=== PATIENT | female | born 1970 | race Caucasian/White ===

== ENCOUNTER → 2017-07-08 10:04 | Outpatient (REF) | payer MEDICAID, SELFPAY ==
[2017-07-08 13:46] LABS: Amphetamine/Metha Screen,Urine Positive ng/mL (<1000); Barbiturates Screen,Urine Negative ng/mL (<200); Benzodiazepines Screen,Urine Negative ng/mL (200); Cannabinoid Screen,Urine Negative ng/mL (<50); Cocaine Screen,Urine Negative ng/g (<300); Methadone Screen,Urine Negative ng/mL (<300); Opiate Screen,Urine Negative ng/mL (<300); Phencyclidine Screen,Urine Negative ng/mL (<25)
== END ==
LOC: LAB 10:04
PROVIDERS: Visit Provider Emergency Medicine
DX: Z79.899 Other long term (current) drug therapy (principal)
CPT/HCPCS: 80305

== ENCOUNTER → 2017-11-01 13:23 | Outpatient (REF) | payer MEDICAID, SELFPAY ==
[2017-11-01 21:02] LABS: Amphetamine/Metha Screen,Urine Positive ng/mL (<1000); Barbiturates Screen,Urine Negative ng/mL (<200); Benzodiazepines Screen,Urine Negative ng/mL (<200); Cannabinoid Screen,Urine Negative ng/mL (<50); Cocaine Screen,Urine Negative ng/mL (<300); Methadone Screen,Urine Negative ng/mL (<300); Opiate Screen,Urine Negative ng/mL (<300); Phencyclidine Screen,Urine Negative ng/mL (<25)
== END ==
LOC: LAB 13:23
PROVIDERS: Visit Provider Emergency Medicine
DX: Z79.899 Other long term (current) drug therapy (principal)
CPT/HCPCS: 80305

== ENCOUNTER → 2017-12-31 13:49 | Outpatient (REF) | payer MEDICAID, SELFPAY ==
[2017-12-31 20:42] LABS: Amphetamine/Metha Screen,Urine Positive ng/mL (<1000); Barbiturates Screen,Urine Negative ng/mL (<200); Benzodiazepines Screen,Urine Negative ng/mL (<200); Cannabinoid Screen,Urine Negative ng/mL (<50); Cocaine Screen,Urine Negative ng/mL (<300); Methadone Screen,Urine Negative ng/mL (<300); Opiate Screen,Urine Negative ng/mL (<300); Phencyclidine Screen,Urine Negative ng/mL (<25)
== END ==
LOC: LAB 13:49
PROVIDERS: Visit Provider Emergency Medicine
DX: Z79.899 Other long term (current) drug therapy (principal)
CPT/HCPCS: 80305

== ENCOUNTER → 2018-02-28 08:30 | Outpatient (CLI) | payer MEDICAID, SELFPAY ==
[2018-03-03 14:11] LABS: Amphetamine/Metha Screen,Urine Positive ng/mL (<1000); Barbiturates Screen,Urine Negative ng/mL (<200); Benzodiazepines Screen,Urine Negative ng/mL (<200); Cannabinoid Screen,Urine Negative ng/mL (<50); Cocaine Screen,Urine Negative ng/mL (<300); Methadone Screen,Urine Negative ng/mL (<300); Opiate Screen,Urine Negative ng/mL (<300); Phencyclidine Screen,Urine Negative ng/mL (<25)
== END ==
PROVIDERS: Visit Provider Emergency Medicine
DX: F90.9 Attention-deficit hyperactivity disorder, unspecified type (principal)
CPT/HCPCS: 80305

== ENCOUNTER → 2018-05-27 13:45 | Outpatient (CLI) | payer MEDICAID, SELFPAY ==
[2018-05-27 14:24] LABS: Amphetamine/Metha Screen,Urine Positive ng/mL (<1000); Barbiturates Screen,Urine Negative ng/mL (<200); Benzodiazepines Screen,Urine Negative ng/mL (<200); Cannabinoid Screen,Urine Positive ng/mL (<50); Cocaine Screen,Urine Negative ng/mL (<300); Methadone Screen,Urine Negative ng/mL (<300); Opiate Screen,Urine Negative ng/mL (<300); Phencyclidine Screen,Urine Negative ng/mL (<25)
== END ==
PROVIDERS: Visit Provider Nurse Practitioner Family
DX: Z79.899 Other long term (current) drug therapy (principal)
CPT/HCPCS: 80305

== ENCOUNTER → 2018-06-25 17:55 | Outpatient (CLI) | payer MEDICAID, SELFPAY ==
[2018-06-25 18:40] LABS: Amphetamine/Metha Screen,Urine Positive ng/mL (<1000); Barbiturates Screen,Urine Negative ng/mL (<200); Benzodiazepines Screen,Urine Negative ng/mL (<200); Cannabinoid Screen,Urine Positive ng/mL (<50); Cocaine Screen,Urine Negative ng/mL (<300); Methadone Screen,Urine Negative ng/mL (<300); Opiate Screen,Urine Negative ng/mL (<300); Phencyclidine Screen,Urine Negative ng/mL (<25)
== END ==
LOC: LAB 17:55 → LAB.DROPOF 06-26 08:22
PROVIDERS: Visit Provider Emergency Medicine
DX: Z79.899 Other long term (current) drug therapy (principal)
CPT/HCPCS: 80305

== ENCOUNTER → 2019-01-29 16:40 | Outpatient (CLI) | payer MEDICAID, SELFPAY ==
[2019-01-29 17:46] LABS: Erythrocyte Sedimentation Rate 16 mm/hr (0-20)
[2019-01-29 17:55] LABS: Alanine Aminotransferase 27 U/L (12-78); Albumin Level 4.3 gm/dL (3.4-5.0); Albumin/Globulin Ratio 1.1 (1.1-1.8); Alkaline Phosphatase 113 U/L (46-116); Anion Gap 14.5 mEq/L (5-15); Aspartate Amino Transferase 22 U/L (15-37); Bilirubin,Total 0.4 mg/dL (0.2-1.0); Blood Urea Nitrogen 18 mg/dL (7-18); C-Reactive Protein 0.4 mg/dL (0.0-0.9); Calcium 9.3 mg/dL (8.5-10.1); Carbon Dioxide 25 mmol/L (21.0-32.0); Chloride 105 mmol/L (98-107); Chol/HDL Ratio 3.4 (1-3.5); Cholesterol 216 mg/dL (140-200); Creatinine,Serum 0.74 mg/dL (0.55-1.02); Estimated Glomerular Filt Rate 83 ml/min (>60); Free T4 (Free Thyroxine) 1.11 ng/dl (0.76-1.46); GFR (African American) 101 ML/MIN (>60); Glucose 97 mg/dL (74-106); HDL Cholesterol 64 mg/dL (29-89); LDL Cholesterol 121 mg/dL (0-130); Potassium 4.5 mmoL/L (3.5-5.1); Sodium 140 mmol/L (136-145); Thyroid Stimulating Hormone 0.98 uIU/ml (0.358-3.740); Total Protein,Serum 8.3 gm/dL (6.4-8.2); Triglycerides 153 mg/dL (30-200); VLDL Cholesterol 31 mg/dL (0-40)
[2019-01-29 18:47] LABS: Basophils # 0.1 K/mm3 (0-0.2); Basophils % 0.9 % (0.1-2.0); Eosinophils # 0.2 K/mm3 (0.0-0.4); Eosinophils % 2.5 % (0.1-12.0); Hematocrit 46.6 % (37.0-47.0); Hemoglobin 15.1 g/dL (12.2-16.2); Lymphocytes # 1.6 K/mm3 (0.7-4.5); Mean Corpuscular HGB Conc 32.3 g/dL (31.8-35.4); Mean Corpuscular Hemoglobin 29.5 pg (27.0-31.2); Mean Corpuscular Volume 91.3 fl (81-99); Mean Platelet Volume 11.1 fl (7.4-10.4); Monocytes # 0.6 K/mm3 (0.1-1.0); Monocytes % 6.5 % (1.7-9.3); Platelet Count 250 K/mm3 (142-424); Red Cell Distribution Width 13.2 % (11.5-17.5); White Blood Count 9.5 K/mm3 (4.8-10.8)
[2019-01-31 18:12] LABS: Vitamin D 25 Hydroxy 23.3 ng/mL (30.0-100.0)
== END ==
PROVIDERS: Visit Provider Nurse Practitioner Family
DX: R53.83 Other fatigue (principal); I10 Essential (primary) hypertension; E55.9 Vitamin D deficiency, unspecified
CPT/HCPCS: 80053; 80061; 82652; 84439; 84443; 85025; 85651; 86140

== ENCOUNTER → 2019-03-04 07:57 | Outpatient (CLI) | payer MEDICAID, SELFPAY ==
--- NOTE | 2019-03-04 07:58 | CA_ITS ---
APPROVED REPORT Mold Maker Apprentice: Valerie Herbert RVT Study Quality: Good Indications: htn Risk Factors Hypertension Hyperlipidemia Smoking Renal Artery Doppler Origin (R) 149.0/ cm/sec Proximal (R) 165.7/ cm/sec Mid (R) 141.9/ cm/sec Distal (R) 83.7/ cm/sec Renal Aorta Ratio (R) 2.43 Segmental A. (R) 66.6/20.6 cm/sec RI: 0.69 Segmental A. Sup (R) 66.6/20.6 cm/sec Segmental A. Mid (R) 46.0/17.8 cm/sec Segmental A. Inf (R) 64.8/27.2 cm/sec Origin (L) 114.3/ cm/sec Proximal (L) 103.3/ cm/sec Mid (L) 64.3/ cm/sec Distal (L) 169.5/ cm/sec Renal Aorta Ratio (L) 2.49 Segmental A. (L) 60.5/19.0 cm/sec RI: 0.68 Segmental A. Sup (L) 60.5/19.0 cm/sec Segmental A. Mid (L) 58.8/15.6 cm/sec Segmental A. Inf (L) 60.5/16.4 cm/sec Renal Measurements Kidney Size (R) 10.2x7.2 cm Cortical Thickness (R) 1.7 cm Kidney Size (L) 11.5x6.6 cm Cortical Thickness (L) 1.3 cm Conclusion Study suggests no evidence of bilateral renal artery stenosis. Electronically signed by : Blake Izquierdo MD 03/06/2019 17:10:15
--- NOTE | 2019-03-04 07:58 | CA_ITS ---
APPROVED REPORT EXAM: Comprehensive 2D, Doppler, and color-flow Echocardiogram Plastic Tool Maker: Анна Caban RDCS Ht: 5 ft 4 in Wt: 186lbs BSA: 1.90 BP: 137/90 mmHg Indications: CAD, Hypertension/HDD,CURRENT SMOKER 2D Dimensions LVOT 2.18 cm (M/F) 1.5-2.5 M-Mode Dimensions RVDd 2.78 cm (0.9-2.6) LVDd 5.25 cm (3.5-5.7) LVDs 3.63 cm (3.5-5.7) IVSd 0.93 cm (0.6-1.1) PWd 1.05 cm (0.6-1.1) EF (Teich) 58.10% FS 30.90% EDV (Teich) 132.40 mL ESV (Teich) 55.50 mL LV Diastology E/A Ratio 0.72 Mitral Valve MV A Velocity 60.00 (40-130 cm/s) Left Ventricle Left atrium is mildly enlarged, left ventricle is normal size, mild concentric left ventricular hypertrophy, visually estimated ejection fraction 55% with no regional wall motion abnormality, grade 1 diastolic dysfunction seen without tissue Doppler evidence of raise left atrial pressure. Right Ventricle Right atrium and right ventricular normal size and contractility. Aortic Valve Aortic valve is minimally thickened and fibrosed, there is no aortic stenosis or aortic insufficiency. Mitral Valve Mitral valve is grossly normal, there is mild mitral regurgitation. Tricuspid Valve Tricuspid valve is grossly normal, there is mild tricuspid regurgitation. Pulmonic Valve Pulmonic valve is poorly visualized. Great Vessels Aortic root is normal size. Pericardium No significant pericardial effusion noted. Conclusion 1. Mildly enlarged left atrium, normal left ventricular size, mild concentric left ventricular hypertrophy, visually estimated ejection fraction 55% with no regional wall motion abnormality, grade 1 diastolic dysfunction seen without tissue Doppler evidence of raise left atrial pressure. 2. Mild mitral and tricuspid regurgitation. 3. No significant pericardial effusion noted. Electronically signed by : Mo Shaffer, 03/05/2019 15:51:37
== END ==
PROVIDERS: PCP Emergency Medicine; Visit Provider Urology
DX: I10 Essential (primary) hypertension (principal)
CPT/HCPCS: 93306; 93976

== ENCOUNTER → 2019-04-06 17:50 | Outpatient (CLI) | payer MEDICAID, SELFPAY ==
[2019-04-06 18:55] LABS: Amphetamine/Metha Screen,Urine Positive ng/mL (<1000); Barbiturates Screen,Urine Negative ng/mL (<200); Benzodiazepines Screen,Urine Negative ng/mL (<200); Cannabinoid Screen,Urine Negative ng/mL (<50); Cocaine Screen,Urine Negative ng/mL (<300); Methadone Screen,Urine Negative ng/mL (<300); Opiate Screen,Urine Negative ng/mL (<300); Phencyclidine Screen,Urine Negative ng/mL (<25)
== END ==
PROVIDERS: Visit Provider Emergency Medicine
DX: Z79.899 Other long term (current) drug therapy (principal)
CPT/HCPCS: 80305

== ENCOUNTER 2019-10-31 04:33 | Emergency (ER) | payer MEDICAID, SELFPAY ==
[2019-10-31 04:44] VITALS: BP 170/110; PULSE 97; RESP 16; TEMP 36.7; O2SAT 94; BMI 29.9
[2019-10-31 04:56] LABS: Basophils % 0.4 % (0.1-2.0); Eosinophils # 0.4 K/mm3 (0.0-0.4); Eosinophils % 4.2 % (0.1-12.0); Hematocrit 39.3 % (37.0-47.0); Hemoglobin 13.6 g/dL (12.2-16.2); Lymphocytes # 1.7 K/mm3 (0.7-4.5); Lymphocytes % 20.7 % (10-50); Mean Corpuscular HGB Conc 34.6 g/dL (31.8-35.4); Mean Corpuscular Hemoglobin 29.3 pg (27.0-31.2); Mean Corpuscular Volume 84.8 fl (81-99); Mean Platelet Volume 8.2 fl (7.4-10.4); Monocytes # 0.5 K/mm3 (0.1-1.0); Monocytes % 5.4 % (1.7-9.3); Neutrophils # 5.7 K/mm3 (1.8-7.8); Neutrophils % 69.3 % (37.0-80.0); Platelet Count 225 K/mm3 (142-424); Red Blood Count 4.63 M/mm3 (4.20-5.40); Red Cell Distribution Width 13.8 % (11.5-17.5); White Blood Count 8.3 K/mm3 (4.8-10.8)
[2019-10-31 05:00] VITALS: BP 148/103; PULSE 86; RESP 18; O2SAT 100
[2019-10-31 05:04] LABS: Alanine Aminotransferase 21 U/L (12-78); Albumin Level 4.3 g/dl (3.5-5.0); Albumin/Globulin Ratio 1.2 (1.1-1.8); Alkaline Phosphatase 155 U/L (38-126); Aspartate Amino Transferase 31 U/L (14-36); Bilirubin,Total 0.4 mg/dl (0.2-1.3); Blood Urea Nitrogen 17 mg/dl (7-17); Calcium 9.5 mg/dl (8.4-10.2); Carbon Dioxide 27 mmol/L (22.0-30.0); Chloride 103 mmol/L (98-107); Creatinine Clearance Estimated 124 mL/min (50-200); Estimated Glomerular Filt Rate 89 ml/min (>60); GFR (African American) 107 ML/MIN (>60); Globulin 3.6 g/dL (1.3-3.2); Glucose 101 mg/dl (74-100); Sodium 139 mmol/L (136-145); Total Protein,Serum 7.9 g/dl (6.3-8.2)
--- NOTE | 2019-10-31 05:21 | HMH.EDALLER ---
ED Disposition Clinical Impression: Cellulitis and abscess of hand Bee sting Qualifiers: Encounter type: initial encounter Injury intent: accidental or unintentional Qualified Code(s): T63.441A - Toxic effect of venom of bees, accidental (unintentional), initial encounter Disposition: Home, Self-Care Condition on Discharge: Good Instructions: DI for Insect Bites and Stings Additional Instructions: use meds and see pcp for follow up Prescriptions: cephALEXin [Keflex 500mg Cap] 500 mg PO TID #30 cap Transmission Status: Pending to [facility] predniSONE [Prednisone 20mg Tab] 20 mg PO BID #10 tab Transmission Status: Pending to [facility] Referrals: Anton Sibley MD [Primary Care Provider] - - Critical Care Critical Care Time: No Attestation: On 10/31/19, the high probability of a clinically significant, sudden or life threatening deterioration of the following system(s) required my full and direct attention, intervention and personal management. The time I documented below is in addition to time spent performing reported procedures but includes the following listed in this critical care notation. Medical Decision Making - Medical Records Medical records reviewed: Yes: I reviewed the patient's medical records. - Qamar Inquiry Pt receiving controlled substance: No Vital Signs: 10/31/19 04:44 Temperature 98.0 F Temperature Source Oral Pulse Rate [Right Brachial] 70 Respiratory Rate 15 Blood Pressure [Right Arm] 107/71 L Blood Pressure Mean [Right Arm] 83 Blood Pressure Source [Right Arm] Automatic Cuff Blood Pressure Position [Right Arm] Sitting 02 Sat by Pulse Oximetry 94 L Oxygen Delivery Method Room Air - Lab Data Lab results reviewed: Yes: I reviewed the patient's lab results. Lab Results 10/31/19 04:48: WBC 8.3, RBC 4.63, Hgb 13.6, Hct 39.3, MCV 84.8, MCH 29.3, MCHC 34.6, RDW 13.8, Plt Count 225, MPV 8.2, Neut % (Auto) 69.3, Lymph % (Auto) 20.7, [place] % (Auto) 5.4, Eos % (Auto) 4.2, Baso % (Auto) 0.4, Neut # (Auto) 5.7, Lymph # (Auto) 1.7, [place] # (Auto) 0.5, Eos # (Auto) 0.4, Baso # (Auto) 0.0 10/31/19 04:48: Sodium 139, Potassium 4.0, Chloride 103, Carbon Dioxide 27, Anion Gap 13.0, BUN 17, Creatinine 0.70, Estimated Creat Clear 124, Estimated GFR 89, Est GFR ( Amer) 107, Glucose 101 H, Calcium 9.5, Total Bilirubin 0.4, AST 31, ALT 21, Alkaline Phosphatase 155 H, Total Protein 7.9, Albumin 4.3, Globulin 3.6 H, Albumin/Globulin Ratio 1.2 Result diagrams: 10/31/19 04:48 10/31/19 04:48 Orders (Tests/Meds): ED MEDICATIONS Generic Name Dose Route Start Last Admin Trade Name Freq PRN Reason Stop Dose Admin Sodium Chloride 1,000 mls @ 999 mls/hr 10/31/19 05:15 10/31/19 05:04 Sod Chlor 0.9% 1000ml Bag IV 10/31/19 06:15 999 mls/hr .Q1H1M QASIM Administration Sodium Chloride 8 ml 10/31/19 04:49 Sodium Chloride 0.9% 10ml Vial IV 11/30/19 04:48 NEEDED PRN dilute pepcid Discontinued Medications Generic Name Dose Route Start Last Admin Trade Name Freq PRN Reason Stop Dose Admin Diphenhydramine HCl 25 mg 10/31/19 04:49 10/31/19 05:02 Benadryl 50mg/1ml Vial IV 10/31/19 04:50 25 mg ONCE ONE Administration Famotidine 20 mg 10/31/19 04:49 10/31/19 05:02 Pepcid 20mg/2ml Vial IV 10/31/19 04:50 20 mg ONCE ONE Administration Methylprednisolone Sodium Succinate 125 mg 10/31/19 04:49 10/31/19 05:02 Solu-Medrol 125mg/2ml Vial IV 10/31/19 04:50 125 mg ONCE ONE Administration Allergic React/Insect Bite HPI - General Chief complaint: Allergic Reaction Stated complaint: right hand swollen,red stung by wasp Time Seen by Provider: 10/31/19 05:00 Mode of Arrival - ED Triage: Ambulatory Source of Information: Patient, Medical Record Limitations: No Limitations - History of Present Illness HPI narrative: progressive rt hand swelling after wasp sting a few days ago complaint:
[2019-10-31 05:30] VITALS: BP 160/87; PULSE 86; RESP 18; O2SAT 100
[2019-10-31 05:45] VITALS: BP 148/103; PULSE 90; RESP 16; TEMP 36.7; O2SAT 98
== END 2019-10-31 05:56 | disposition home or self-care (01) ==
PROVIDERS: Emergency Provider Emergency Medicine; PCP Emergency Medicine
DX: L03.113 Cellulitis of right upper limb (principal); T63.441A Toxic effect of venom of bees, accidental (unintentional), initial encounter; I10 Essential (primary) hypertension; K21.9 Gastro-esophageal reflux disease without esophagitis; I25.10 Atherosclerotic heart disease of native coronary artery without angina pectoris; F17.210 Nicotine dependence, cigarettes, uncomplicated; Z87.442 Personal history of urinary calculi; Z90.09 Acquired absence of other part of head and neck; Z90.710 Acquired absence of both cervix and uterus; Z88.0 Allergy status to penicillin; Z88.8 Allergy status to other drugs, medicaments and biological substances
CPT/HCPCS: 80053; 85025; 96365; 96375; 99283

== ENCOUNTER → 2020-05-11 15:09 | Outpatient (CLI) | payer MEDICAID, SELFPAY ==
[2020-05-12 16:29] LABS: Amphetamine/Metha Screen,Urine Negative ng/ml (<1000)
[2020-05-12 16:30] LABS: Barbiturates Screen,Urine Negative ng/ml (<200)
[2020-05-12 16:31] LABS: Benzodiazepines Screen,Urine Negative ng/ml (<200)
[2020-05-12 16:33] LABS: Cannabinoid Screen,Urine Negative ng/ml (<50)
[2020-05-12 16:34] LABS: Cocaine Screen,Urine Negative ng/ml (<300); Methadone Screen,Urine Negative ng/ml (<300)
[2020-05-12 16:35] LABS: Opiate Screen,Urine Negative ng/ml (<300)
[2020-05-12 16:36] LABS: Phencyclidine Screen,Urine Negative ng/ml (<25)
== END ==
PROVIDERS: Visit Provider Emergency Medicine
DX: F90.9 Attention-deficit hyperactivity disorder, unspecified type (principal)
CPT/HCPCS: 80305

== ENCOUNTER → 2020-07-15 14:17 | Outpatient (CLI) | payer MEDICAID, SELFPAY ==
[2020-07-15 15:44] LABS: Amphetamine/Metha Screen,Urine Negative ng/ml (<1000)
[2020-07-15 15:45] LABS: Barbiturates Screen,Urine Negative ng/ml (<200)
[2020-07-15 15:46] LABS: Benzodiazepines Screen,Urine Negative ng/ml (<200); Cannabinoid Screen,Urine Negative ng/ml (<50)
[2020-07-15 15:47] LABS: Cocaine Screen,Urine Negative ng/ml (<300)
[2020-07-15 15:48] LABS: Methadone Screen,Urine Negative ng/ml (<300); Opiate Screen,Urine Negative ng/ml (<300)
[2020-07-15 15:49] LABS: Phencyclidine Screen,Urine Negative ng/ml (<25)
== END ==
PROVIDERS: Visit Provider Emergency Medicine
DX: Z79.899 Other long term (current) drug therapy (principal)
CPT/HCPCS: 80305

== ENCOUNTER → 2020-09-12 12:07 | Outpatient (CLI) | payer MEDICAID, SELFPAY ==
[2020-09-12 17:51] LABS: Barbiturates Screen,Urine Negative ng/ml (<200); Benzodiazepines Screen,Urine Negative ng/ml (<200)
[2020-09-12 17:52] LABS: Cannabinoid Screen,Urine Positive ng/ml (<50)
[2020-09-12 17:53] LABS: Cocaine Screen,Urine Negative ng/ml (<300); Methadone Screen,Urine Negative ng/ml (<300)
[2020-09-12 17:54] LABS: Opiate Screen,Urine Negative ng/ml (<300); Phencyclidine Screen,Urine Negative ng/ml (<25)
[2020-09-16 16:12] LABS: Amphetamine Positive (.); Amphetamine (GC/MS) 1894 ng/mL (Cutoff=500); Amphetamines Positive (.); Methamphetamine Positive (.); Methamphetamine (GC/MS) >3000 ng/mL (Cutoff=500)
== END ==
PROVIDERS: Emergency Medicine; Visit Provider Surgery
DX: F90.9 Attention-deficit hyperactivity disorder, unspecified type (principal); Z01.812 Encounter for preprocedural laboratory examination; Z11.52 Encounter for screening for COVID-19
CPT/HCPCS: 80305; 80324; U0003

== ENCOUNTER → 2020-11-09 08:00 | Outpatient (CLI) | payer MEDICAID, SELFPAY ==
[2020-11-10 16:25] LABS: Barbiturates Screen,Urine Negative ng/ml (<200)
[2020-11-10 16:26] LABS: Benzodiazepines Screen,Urine Negative ng/ml (<200)
[2020-11-10 16:27] LABS: Amphetamine/Metha Screen,Urine Positive ng/ml (<1000); Cannabinoid Screen,Urine Negative ng/ml (<50)
[2020-11-10 16:28] LABS: Cocaine Screen,Urine Negative ng/ml (<300)
[2020-11-10 16:29] LABS: Methadone Screen,Urine Negative ng/ml (<300); Opiate Screen,Urine Negative ng/ml (<300)
[2020-11-10 16:30] LABS: Phencyclidine Screen,Urine Negative ng/ml (<25)
== END ==
PROVIDERS: Visit Provider Emergency Medicine
DX: Z79.899 Other long term (current) drug therapy (principal)
CPT/HCPCS: 80305

== ENCOUNTER → 2021-01-16 13:28 | Outpatient (CLI) | payer MEDICAID, SELFPAY | PROVIDERS: Visit Provider Surgery | DX: Z01.812 Encounter for preprocedural laboratory examination (principal); Z11.52 Encounter for screening for COVID-19; Z12.11 Encounter for screening for malignant neoplasm of colon | CPT/HCPCS: C9803; U0003; U0005 ==

== ENCOUNTER 2021-01-18 09:14 | Day surgery (SDC) | payer MEDICAID, SELFPAY ==
[2021-01-16 11:13] VITALS: BMI 31.1
[2021-01-18] VITALS (8 sets, daily range): BP systolic 85–160; BP diastolic 54–95; PULSE 88–104; RESP 16–24; TEMP 36.4–36.6; O2SAT 88–100
--- NOTE | 2021-01-18 09:54 | SUR.PREOP ---
FLEETS ENEMA ORDERED. PT INSTRUCTED AND WILL ADMINISTER HERSELF.
--- NOTE | 2021-01-18 09:54 | HMH.ANESCL ---
[facility] Anesthesia Checklist - Patient Identification Patient Identification: Arm Band - Structural Data Admitted From: Home Planned Operative Procedure/s: Colonoscopy Consent for Planned Operative Procedure(s) Verified: Yes - NPO Status Verified Time NPO: 00:00 - Airway Assessment C-Spine Mobility Assessed: Yes TMJ Mobility Assessed: Yes - Neurological Assessment Level of Consciousness: Awake Hx Seizures: No Numbness or tingling in extremities: No - Anesthesia Plan Anesthesia Risk discussed: Yes Anesthesia Plan: Verified ASA Class: III Anesthesia Type: MAC [facility] History I have reviewed the patient's past medical history: Yes Medical History: Reports:: Anxiety, Cancer, Coronary Artery Disease, Gastroesophageal Reflux Disease(GERD), Hypertension, Kidney Stones Denies:: Diabetes Mellitus Type 1, Diabetes Mellitus Type 2, Internal Pacemaker, MRSA, Seizures *Have you ever received a pneumonia vaccine?: No *Have you received a flu vaccine this season?: No Other Medical History: Reports: Arthritis, Other Anesthesia experience/problems:: None Laterality Cases: Bilateral: Tonsillectomy Other Surgeries: Yes: , Hysterectomy-Total, Tubal Ligation, Other (lipotripsy). No: Pacemaker Amputation: No Fractures: No - *Social History Last grade of school completed: High school graduate Smoking Status: Current every day smoker Tobacco Type: cigarettes # Packs/Day (cigarettes): 1 #Yrs smoked (if former smoker): 20 Alcohol Intake: never Alcohol Intake Frequency:: holidays/special occasions only Substance Use Type: former substance user *Occupational Status:: employed Housing: apartment Household Members: friend(s) *Travel in the last 8 weeks: None - Psychiatric History Pschychiatric History:: Reports:: Anxiety Family Hx:: Diabetes, Heart Attack, Cancer
--- NOTE | 2021-01-18 10:15 | HMH.GSHP ---
HPI HPI: Patient is a 50-year-old female from [facility] referred by Dr. Sibley's office for colonoscopy. She has never had prior colonoscopy. She states that for several months she has had pain with defecation. She also describes a lot of bleeding . She feels unusual sensation with the urge to defecate. She has no family history of colon cancer. Originally been seen in August for this and scheduled for colonoscopy. However, she had a no results with her bowel prep and therefore was rescheduled for colonoscopy. [facility] History I have reviewed the patient's past medical history: Yes Medical History: Reports:: Anxiety, Cancer, Coronary Artery Disease, Gastroesophageal Reflux Disease(GERD), Hypertension, Kidney Stones Denies:: Diabetes Mellitus Type 1, Diabetes Mellitus Type 2, Internal Pacemaker, MRSA, Seizures *Have you ever received a pneumonia vaccine?: No *Have you received a flu vaccine this season?: No Other Medical History: Reports: Arthritis, Other Laterality Cases: Bilateral: Tonsillectomy Other Surgeries: Yes: , Hysterectomy-Total, Tubal Ligation, Other (lipotripsy). No: Pacemaker Amputation: No Fractures: No - *Social History Last grade of school completed: High school graduate Smoking Status: Current every day smoker Tobacco Type: cigarettes # Packs/Day (cigarettes): 1 #Yrs smoked (if former smoker): 20 Alcohol Intake: never Alcohol Intake Frequency:: holidays/special occasions only Substance Use Type: former substance user *Occupational Status:: employed Housing: apartment Household Members: friend(s) *Travel in the last 8 weeks: None - Psychiatric History Pschychiatric History:: Reports:: Anxiety Family Hx:: Diabetes, Heart Attack, Cancer Review of Systems - Review of Systems Review of systems:: pertinent systems reviewed and negative unless documented below Meds Home Medications Medication Instructions Recorded Confirmed Type Amlodipine Besylate [Amlodipine 10 mg PO DAILY 09/08/20 01/16/21 History 10mg Tab] Ergocalciferol (Vitamin D2) 50,000 unit PO QWEEK 09/08/20 01/16/21 History [Drisdol] dextroamphetamine-amphetamine 20 20 mg PO TID #90 tab 12/30/20 01/16/21 Rx mg tablet Metformin HCl See Rx Instructions .ROUTE .COMPLEX 01/16/21 01/16/21 History Metoprolol Tartrate See Rx Instructions .ROUTE .COMPLEX 01/16/21 01/16/21 History buPROPion HCL [Wellbutrin XL] See Rx Instructions .ROUTE .COMPLEX 01/16/21 01/16/21 History Allergies Allergy/AdvReac Type Severity Reaction Status Date / Time Penicillins [PENICILLINS] Allergy Intermediate I-HIVES Verified 01/18/21 09:43 lisinopril AdvReac Intermediate Cough Verified 01/18/21 09:43 Exam Vital signs and Labs for Last 24 Hours: Temp Pulse Resp BP Pulse Ox 97.6 F 104 H 18 160/95 H 97 01/18/21 09:45 01/18/21 09:45 01/18/21 09:45 01/18/21 09:45 01/18/21 09:45 I & O for Last 24 hours: Intake & Output 01/15/21 01/16/21 01/17/21 01/18/21 11:59 11:59 11:59 11:59 Weight 187 lb - Constitutional no acute distress - *Routine HEENT Exam Head: Present: normocephalic Eye: Present: EOMI, PERRL ENT: Present: mucous membranes moist - *Routine Neck Exam Present: supple. Absent: lymphadenopathy - *Routine Respiratory Exam Present: CTA bilaterally - *Routine Cardiovascular Exam Present: RRR - *Routine Abdominal Exam Present: soft, normoactive bowel sounds. Absent: tenderness - *Routine Rectal Exam Rectal:: deferred - *Routine Genitalia Exam Genitalia:: deferred - *Routine Extremities Exam Absent: cyanosis, clubbing, edema - *Routine Skin Exam Present: warm. Absent: rash - *Routine Neurological Exam Present: alert, oriented X3 Assessment and Plan - Assessment and plan all Dx Assessment and Plan for all problems:: Colonoscopy
--- NOTE | 2021-01-18 10:50 | HMH.SCOPE ---
- Procedure: Date: 01/18/21 Patient Date of :: 1970 Procedure Performed:: Colonoscopy Indications:: Patient is a 50-year-old female from [facility] referred by Dr. Sibley's office for colonoscopy. She has never had prior colonoscopy. She has had pain with defecation. She also describes bleeding. She feels unusual sensation with the urge to defecate. She has no family history of colon cancer. She was originally seen in August for this and scheduled for colonoscopy. However, she had a no results with her bowel prep and therefore was rescheduled for colonoscopy. However, the patient states that she did not follow-up with her scheduled colonoscopies. Ultimately she was rescheduled for colonoscopy. She had called the morning of her procedure and stated that she had no results with her bowel prep once again. However, after several hours her bowels did begin moving. Plan was made to proceed with colonoscopy. Performing Provider:: Edgar Alas MD Referring Provider:: Ramón Sibley MD Sedation:: MAC sedation Procedure:: Patient was taken to endoscopy procedure room. She was positioned in lateral decubitus position. Adequate intravenous sedation was achieved with anesthesia titration of propofol. Digital examination was performed. There was an irregular lesion palpable in the distal rectum. Initially this was felt to be solid stool. However, colonoscope was inserted. This is noted to be irregular pedunculated somewhat hemorrhagic distal anorectal mass. The colonoscope was able to be advanced beyond this and ultimately advanced to the ascending colon. However, colonic preparation was very poor and visualization was very poor. Irrigation and suctioning was performed however visualization was poor. There was no obvious obstructing mass. Upon reaching the rectum retroflexion was performed. She had this pedunculated lobulated firm irregular nonfixed anorectal lesion. Due to its distal location and patient's tolerance of anesthesia was unable to be biopsied. This would be easily accessible transanally. This is concerning for possible early distal rectal carcinoma. Colonoscope was withdrawn. Findings:: Very poor colonic preparation Anorectal lesion, pedunculated, lobulated, firm and irregular highly concerning for very distal rectal carcinoma Recommendations:: I have contacted colorectal surgery at [facility]. Arrangements have been made for patient to be seen in several days for possible early distal rectal carcinoma Complications:: None immediately apparent Estimated blood obtained (mL): 1
--- NOTE | 2021-01-18 11:32 | SUR.PHASEII ---
1122: Pt states she is having difficulty breathing. O2 Sats remain between 96-100% on RA. Duoneb once now ordered per Dawit Diane CRNA.
== END 2021-01-18 12:00 | disposition home or self-care (01) ==
LOC: OUTP 09:17
PROVIDERS: PCP Emergency Medicine; Visit Provider Surgery
PROC: 0DJD8ZZ Inspection of Lower Intestinal Tract, Via Natural or Artificial Opening Endoscopic (ICD-10-PCS; CPT G0121; principal; 2021-01-18 07:30)
DX: Z12.11 Encounter for screening for malignant neoplasm of colon (principal); K63.9 Disease of intestine, unspecified; F41.9 Anxiety disorder, unspecified; Z85.9 Personal history of malignant neoplasm, unspecified; I25.10 Atherosclerotic heart disease of native coronary artery without angina pectoris; K21.9 Gastro-esophageal reflux disease without esophagitis; I10 Essential (primary) hypertension; Z87.442 Personal history of urinary calculi; M19.90 Unspecified osteoarthritis, unspecified site; Z72.0 Tobacco use; Z83.3 Family history of diabetes mellitus; Z82.3 Family history of stroke; Z80.9 Family history of malignant neoplasm, unspecified
CPT/HCPCS: G0121; J2704

== ENCOUNTER → 2021-10-04 06:19 | Outpatient (CLI) | payer MEDICAID, SELFPAY ==
[2021-10-03 20:45] LABS: Barbiturates Screen,Urine Negative ng/ml (<200)
[2021-10-03 20:46] LABS: Amphetamine/Metha Screen,Urine Positive ng/ml (<1000)
[2021-10-03 20:47] LABS: Benzodiazepines Screen,Urine Negative ng/ml (<200); Cannabinoid Screen,Urine Negative ng/ml (<50)
[2021-10-03 20:48] LABS: Cocaine Screen,Urine Negative ng/ml (<300)
[2021-10-03 20:49] LABS: Methadone Screen,Urine Negative ng/ml (<300); Opiate Screen,Urine Negative ng/ml (<300)
[2021-10-03 20:50] LABS: Phencyclidine Screen,Urine Negative ng/ml (<25)
== END ==
PROVIDERS: PCP Emergency Medicine; Visit Provider Emergency Medicine
DX: F32.A Depression, unspecified (principal); F90.9 Attention-deficit hyperactivity disorder, unspecified type
CPT/HCPCS: 80305

== ENCOUNTER 2022-03-12 18:48 | Inpatient (IN) | payer MEDICAID, SELFPAY ==
[2022-03-12] VITALS (11 sets, daily range): BP systolic 115–192; BP diastolic 78–126; PULSE 86–110; RESP 16–19; TEMP 36.6–36.8; O2SAT 94–99; BMI 31.2; BMI 29.5
--- NOTE | 2022-03-12 | IR_ITS ---
APPROVED REPORT Patient Location: Emergent Coil Cleaner: ADRIAN Bermeo RT (R) PROCEDURES Left heart catheterization Left ventriculogram Selective coronary angiogram Drug-eluting stent deployment to the proximal mid LAD Drug-eluting stent deployment to the ostial proximal mid and distal dominant right coronary artery Drug-eluting stent deployment to the proximal posterior descending artery INDICATION Acute anterior ST elevation myocardial infarction, Coronary artery disease, Informed consent was obtained prior to the procedure. COMPLICATIONS None Estimated Blood Loss: Less than 10 mls TECHNIQUE One percent lidocaine used to anesthetize the right anterior aspect of the wrist. The right radial artery was accessed via the Seldinger technique. A 6 [place] sheath was placed in the right radial artery. 2.5 mg of verapamil, 800 mcg of nitroglycerin, 1mg Lidocaine and 5000 U Heparin were given through the arterial sheath. The papa catheter was also used to perform selective coronary angiogram. Therapeutic heparin was administered intravenously giving a therapeutic ACT. The guide catheter was placed in the left main artery and a Choice PT extra-support wire was placed initially into an obtuse marginal artery. A guide liner was advanced due to poor catheter seeding into the left main artery. A 2 mm balloon was advanced and believed to be inflated in an occluded vessel however this was an overlap and a small obtuse marginal artery. The balloon was pulled back and the wire was repositioned down the LAD. A 2.5 mm balloon was used to predilate the stenosis. Following this a 3 mm x 38 mm resolute Audi stent was placed in the proximal to mid LAD and deployed at 18 jovan. A 3.5 x 12 mm balloon was deployed in the distal segment of the stent at 18 jovan and then pulled back into the mid and proximal portion at 20 and 24 jovan. The balloon was then advanced further down and then deployed at 24 jovan to further post dilate. IZABELA 0 flow was present at the beginning of the procedure with IZABELA-3 flow at the end of the procedure. There was jailing of the first septal stock repairer and first diagonal artery however the vessels had IZABELA-3 flow at the end of the interventional procedure. Following this the guide catheter was pulled back and placed into the right coronary artery followed by a Choice PT extra-support wire. A 3.5 x 38 mm resolute [place] stent was deployed in the distal segment at 20 jovan. Repeat angiography demonstrated a severe stenosis in the posterior descending artery therefore a 3 mm x 8 mm resolute [place] stent was deployed at 20 jovan reducing the critical stenosis to 0%. An additional 3.5 x 26 mm resolute Audi stent was placed proximal to the first right coronary artery stent yet still overlapping and extending back into the ostial segment and then deployed at 22 jovan. IZABELA-3 flow was present before and after the procedure. Following this the guide catheter was used to perform left heart catheterization and left ventriculogram. Then the procedure the apparatus was removed the sheath was removed and hemostasis was achieved using TR banding patient was transferred to the postop putting in stable condition. Nitroglycerin drip was started due to critically elevated LVEDP and hypertension ANGIOGRAPHIC RESULTS The left main artery Normal The left anterior descending artery Has proximal calcified 30% stenoses with a 50% stenosis distal to the first septal stock repairer yet proximal to the first diagonal artery. The vessel was then occluded. Following stent placement there were additional 30% stenoses throughout the mid and distal LAD. The first diagonal artery is 2.25 mm in diameter and has a proximal 70 mid vess
--- NOTE | 2022-03-12 19:20 | ECG_ITS ---
APPROVED REPORT Exam: Resting ECG HR:82 bpm ECG Measurements Heart Rate 82 AXES MS 148 P 38 QRSd 103 QRS -32 QT 402 T 79 QTc 440 Conclusion SINUS RHYTHM POSSIBLE LEFT ATRIAL ENLARGEMENT [-0.1mV P-WAVE IN V1/V2] ANTERIOR MYOCARDIAL INFARCTION , PROBABLY RECENT [40+ ms Q WAVE AND/OR ST/T ABNORMALITY IN V3/V4] INFERIOR MYOCARDIAL INFARCTION , PROBABLY OLD [40+ ms Q WAVE AND/OR ST/T ABNORMALITY IN II/aVF] ACUTE TN UNCONFIRMED REPORT Electronically signed by : Ector Castro MD 03/13/2022 20:11:25
--- NOTE | 2022-03-12 19:41 | HMH.EDGENADL ---
Discharge Plan Disposition Patient Disposition: Still a Patient Condition: Serious Prescriptions Prescriptions: No Action metformin 500 mg tablet 500 mg PO DAILY pantoprazole 40 mg tablet,delayed release (DR/EC) 40 mg PO DAILY dicyclomine 10 mg capsule 10 mg PO TID PRN dextroamphetamine-amphetamine 20 mg tablet 20 mg PO TID Qty: 90 0RF ergocalciferol (vitamin D2) 1,250 mcg (50,000 unit) capsule See Rx Instructions .ROUTE .COMPLEX Qty: 4 0RF Dose Instruction: TAKE ONE CAPSULE BY MOUTH EVERY WEEK FOR SUPPLEMENT Rx Instructions: TAKE ONE CAPSULE BY MOUTH EVERY WEEK FOR SUPPLEMENT metoprolol tartrate 50 mg tablet See Rx Instructions .ROUTE .COMPLEX Qty: 180 2RF Dose Instruction: TAKE ONE TABLET BY MOUTH 2 TIMES A DAY Rx Instructions: TAKE ONE TABLET BY MOUTH 2 TIMES A DAY bupropion HCl 150 mg tablet extended release 24 hr See Rx Instructions .ROUTE .COMPLEX Qty: 60 3RF Dose Instruction: TAKE ONE TABLET BY MOUTH ONCE A DAY FOR DEPRESSION Rx Instructions: TAKE ONE TABLET BY MOUTH ONCE A DAY FOR DEPRESSION cholecalciferol (vitamin D3) 1,250 mcg (50,000 unit) capsule See Rx Instructions .ROUTE .COMPLEX Qty: 4 2RF Dose Instruction: TAKE ONE CAPSULE BY MOUTH EVERY WEEK Rx Instructions: TAKE ONE CAPSULE BY MOUTH EVERY WEEK amlodipine 10 mg tablet See Rx Instructions .ROUTE .COMPLEX Qty: 30 2RF Dose Instruction: TAKE ONE TABLET BY MOUTH ONCE A DAY FOR BLOOD PRESSURE Rx Instructions: TAKE ONE TABLET BY MOUTH ONCE A DAY FOR BLOOD PRESSURE Referrals Follow up/Referrals: Anton Sibley MD [Primary Care Provider] - See instructions Clinical Impressions Clinical Impression: ACS (acute coronary syndrome) Discharge ED Provider: Jose Polk General Adult HPI General Chief complaint: Chest Pain Stated complaint: pain under breast, back pain no accident Time Seen by Provider: 03/12/22 19:20 Mode of Arrival: Ambulatory Source of Information: Patient Limitations: No Limitations Description of Symptoms (Recalled from ER Triage Doc. by RN): pt c/o pain under lt breast radiating to back that has been constast since 2 am this morning History of Present Illness HPI narrative: Patient is a 51-year-old female with past medical history of remote history of IV drug use approximately 10 years ago who presents emergency department for evaluation of chest pain. Onset was acute, occurring at 2 AM waking her out of her sleep, sharp, radiating from her left breast through her axilla into her left shoulder blade. Due to persistent symptoms that were qualified is severe in intensity she presents here for continued evaluation. No other acute complaints at this time. Patient denies current substance abuse, cough, abdominal pain, vomiting.. Related Data Home Medications Medication Instructions Recorded Confirmed dicyclomine 10 mg capsule 10 mg PO TID PRN 02/02/22 02/02/22 metformin 500 mg tablet 500 mg PO DAILY 02/02/22 02/02/22 pantoprazole 40 mg tablet,delayed 40 mg PO DAILY 02/02/22 02/02/22 release Previous Rx's Medication Instructions Recorded ergocalciferol (vitamin D2) 1,250 See Rx Instructions .Route 10/03/21 mcg (50,000 unit) capsule .COMPLEX #4 caps metoprolol tartrate 50 mg tablet See Rx Instructions .Route 10/03/21 .COMPLEX #180 tabs bupropion HCl 150 mg 24 hr tablet, See Rx Instructions .Route 01/03/22 extended release .COMPLEX #60 tabs amlodipine 10 mg tablet See Rx Instructions .Route 02/02/22 .COMPLEX #30 tabs cholecalciferol (vitamin D3) 1,250 See Rx Instructions .Route 02/02/22 mcg (50,000 unit) capsule .COMPLEX #4 caps dextroamphetamine-amphetamine 20 20 mg PO TID adhd #90 tabs 02/02/22 mg tablet Allergies Allergy/AdvReac Type Severity Reaction Status Date / Time Penicillins [PENICILLINS] Allergy Intermediate I-HIVES Verified 02/02/22 08:33 lisinopril AdvReac Intermediate Cough Harshad
[2022-03-12 19:46] LABS: Basophils # 0.1 K/mm3 (0-0.2); Basophils % 0.7 % (0.1-2.0); Eosinophils # 0.2 K/mm3 (0.0-0.4); Eosinophils % 2.8 % (0.1-12.0); Hematocrit 38.8 % (37.0-47.0); Hemoglobin 12.9 g/dL (12.2-16.2); Lymphocytes # 0.8 K/mm3 (0.7-4.5); Lymphocytes % 9.4 % (10-50); Mean Corpuscular HGB Conc 33.4 g/dL (31.8-35.4); Mean Corpuscular Hemoglobin 29.5 pg (27.0-31.2); Mean Corpuscular Volume 88.5 fl (81-99); Mean Platelet Volume 7.4 fl (7.4-10.4); Monocytes # 0.5 K/mm3 (0.1-1.0); Monocytes % 5.9 % (1.7-9.3); Neutrophils % 81.2 % (37.0-80.0); Platelet Count 250 K/mm3 (142-424); Red Blood Count 4.38 M/mm3 (4.20-5.40); Red Cell Distribution Width 14.5 % (11.5-17.5); White Blood Count 8.6 K/mm3 (4.8-10.8)
[2022-03-12 19:51] LABS: Anion Gap 9.2 mEq/L (5-15); Blood Urea Nitrogen 6 mg/dl (7-17); Calcium 9.5 mg/dl (8.4-10.2); Carbon Dioxide 29 mmol/L (22.0-30.0); Chloride 105 mmol/L (98-107); Creatinine Clearance Estimated 111 mL/min (50-200); Estimated Glomerular Filt Rate 75 ml/min (>60); GFR (African American) 91 ML/MIN (>60); Glucose 128 mg/dl (74-100); Potassium 3.2 mmoL/L (3.5-5.1); Sodium 140 mmol/L (136-145)
[2022-03-12 20:04] LABS: Coronavirus 19, PCR Not Detected (NotDetected); Influenza A, PCR Not Detected (NotDetected); Influenza B, PCR Not Detected (NotDetected)
--- NOTE | 2022-03-12 20:05 | PC.NURSE ---
Critical trop of 16.70 reported to MD Jam at this time
--- NOTE | 2022-03-12 20:06 | PC.NURSE ---
labor relations specialist team paged at 1944 Call backs from Shalonda Dinero, and Celia at 1949 Ebenezer from RT warming up roofing laborer at 1950
--- NOTE | 2022-03-12 20:54 | PC.NURSE ---
Pt transported to labor economist by myself and HOLLAND Stiles on zoll monitor and portable mindray monitor @ 2024. Pt assisted to labor economist table and bedside report given to labor economist team at 2028. MD Issac in labor economist at this time as well.
[2022-03-12 21:46] LABS: CATHL Activated Clotting Time 272 SEC (74-125)
[2022-03-12 21:47] LABS: CATHL Activated Clotting Time > 400 SEC (74-125)
--- NOTE | 2022-03-12 22:43 | PC.NURSE ---
REPORT RECEIVED AT BEDSIDE FROM [facility] RN'S AT 1713
--- NOTE | 2022-03-12 23:01 | EXP.HP ---
History of Present Illness *Admission Date: 03/12/22 *Reason for visit:: Chest pain *History of present illness: 51-year-old female presents emergency department with anterior STEMI. Having chest pain since approximately 2 AM radiating to axilla associated with shortness of breath and palpitations. Patient was taken to the catheterization lab and received PCI to mid LAD, PCI to RCA, and PCI to PDA. Patient currently has no concerns or complaints at this time [facility] Disclaimer: The information contained in this section may have been updated after the patient was seen, as this information can be updated by other users. Social History Smoking Status: Current every day smoker tobacco type: cigarettes packs per day: 1 alcohol intake: never substance use type: former substance user current occupational status: employed Travel in the last 8 weeks: None household members: friend(s) housing: apartment caffeine: Yes Review of Systems Constitutional Constitutional: Reports system reviewed and no additional complaints, except as documented Eyes Eyes: Reports system reviewed and no additional complaints, except as documented ENT Ears, Nose, Mouth, and Throat: Reports system reviewed and no additional complaints, except as documented *Cardiovascular Cardiovascular: Reports chest pain and Reports dyspnea *Respiratory Respiratory: Reports dyspnea *Gastrointestinal Gastrointestinal: Reports system reviewed and no additional complaints, except as documented *Genitourinary Genitourinary: Reports system reviewed and no additional complaints, except as documented *Musculoskeletal Musculoskeletal: Reports system reviewed and no additional complaints, except as documented Integumentary/Breasts Skin/Breast: Reports system reviewed and no additional complaints, except as documented *Neurologic Neurologic: Reports system reviewed and no additional complaints, except as documented Psychiatric Psychiatric: Reports system reviewed and no additional complaints, except as documented Meds Home Medications and Allergies Home Medications Medication Instructions Recorded Confirmed Type ergocalciferol (vitamin D2) 1,250 See Rx Instructions .Route 10/03/21 12/04/21 Rx mcg (50,000 unit) capsule .COMPLEX #4 caps metoprolol tartrate 50 mg tablet See Rx Instructions .Route 10/03/21 12/04/21 Rx .COMPLEX #180 tabs bupropion HCl 150 mg 24 hr tablet, See Rx Instructions .Route 01/03/22 Rx extended release .COMPLEX #60 tabs amlodipine 10 mg tablet See Rx Instructions .Route 02/02/22 Rx .COMPLEX #30 tabs cholecalciferol (vitamin D3) 1,250 See Rx Instructions .Route 02/02/22 Rx mcg (50,000 unit) capsule .COMPLEX #4 caps dextroamphetamine-amphetamine 20 20 mg PO TID adhd #90 tabs 02/02/22 02/02/22 Rx mg tablet dicyclomine 10 mg capsule 10 mg PO TID PRN 02/02/22 02/02/22 History metformin 500 mg tablet 500 mg PO DAILY 02/02/22 02/02/22 History pantoprazole 40 mg tablet,delayed 40 mg PO DAILY 02/02/22 02/02/22 History release New Prescriptions to Start Prescriptions: Allergies Allergy/AdvReac Type Severity Reaction Status Date / Time Penicillins [PENICILLINS] Allergy Intermediate I-HIVES Verified 02/02/22 08:33 lisinopril AdvReac Intermediate Cough Verified 02/02/22 08:33 Exam Data for Last 24 hours Vital signs and Labs for Last 24 Hours: Temp Pulse Resp BP Pulse Ox 97.9 F 86 18 183/112 H 98 03/12/22 20:24 03/12/22 22:15 03/12/22 22:15 03/12/22 22:15 03/12/22 22:15 Laboratory Results - last 24 hr 03/12/22 19:33: WBC 8.6, RBC 4.38, Hgb 12.9, Hct 38.8, MCV 88.5, MCH 29.5, MCHC 33.4, RDW 14.5, Plt Count 250, MPV 7.4, Neut % (Auto) 81.2 H, Lymph % (Auto) 9.4 L, Leake % (Auto) 5.9, Eos % (Auto) 2.8, Baso % (Auto) 0.7, Neut # (Auto) 7.0, Lymph # (Auto) 0.8, Leake # (Auto) 0.5, Eos # (Auto) 0.2, Baso # (Auto) 0.1 03/12/22 19:33: Sodium 140, Potas
--- NOTE | 2022-03-12 23:29 | PC.NURSE ---
Addendum entered by Jef Higgins RN 03/13/22 01:07: Continued titration on 99 nitro gtt paused. BP 130/86 Original Note: 2255 nitro gtt decreased to 40mcg/min. BP 128/98 2320 nitro gtt decreased to 30mcg/min. BP 127/78
[2022-03-13] VITALS (8 sets, daily range): BP systolic 119–154; BP diastolic 70–97; PULSE 90–115; RESP 14–21; TEMP 36.6–36.8; O2SAT 94–98; BMI 28.6
--- NOTE | 2022-03-13 02:11 | PC.NURSE ---
Traclet removed at 0200. No bleeding visualized at this time. Site cleaned with chlorhexidine and 2x2 placed with tegaderm covering. Pt tolerated well.
[2022-03-13 05:17] LABS: Basophils % 0.6 % (0.1-2.0); Eosinophils # 0.2 K/mm3 (0.0-0.4); Eosinophils % 2.7 % (0.1-12.0); Hematocrit 37.2 % (37.0-47.0); Hemoglobin 12.2 g/dL (12.2-16.2); Lymphocytes # 0.7 K/mm3 (0.7-4.5); Lymphocytes % 10.1 % (10-50); Mean Corpuscular HGB Conc 32.9 g/dL (31.8-35.4); Mean Corpuscular Hemoglobin 28.8 pg (27.0-31.2); Mean Corpuscular Volume 87.4 fl (81-99); Mean Platelet Volume 7.9 fl (7.4-10.4); Monocytes # 0.6 K/mm3 (0.1-1.0); Monocytes % 7.5 % (1.7-9.3); Neutrophils # 5.8 K/mm3 (1.8-7.8); Neutrophils % 79.1 % (37.0-80.0); Platelet Count 254 K/mm3 (142-424); Red Blood Count 4.25 M/mm3 (4.20-5.40); Red Cell Distribution Width 14.7 % (11.5-17.5); White Blood Count 7.3 K/mm3 (4.8-10.8)
[2022-03-13 05:21] LABS: Chloride 105 mmol/L (98-107); Potassium 3.5 mmoL/L (3.5-5.1); Sodium 140 mmol/L (136-145)
[2022-03-13 05:23] LABS: Blood Urea Nitrogen 5 mg/dl (7-17); Creatinine Clearance Estimated 104 mL/min (50-200); Estimated Glomerular Filt Rate 75 ml/min (>60); GFR (African American) 91 ML/MIN (>60)
[2022-03-13 05:24] LABS: Alanine Aminotransferase 47 U/L (12-78); Albumin Level 3.7 g/dl (3.5-5.0); Albumin/Globulin Ratio 1.1 (1.1-1.8); Alkaline Phosphatase 121 U/L (38-126); Anion Gap 8.5 mEq/L (5-15); Aspartate Amino Transferase 286 U/L (14-36); Bilirubin,Total 0.4 mg/dl (0.2-1.3); Calcium 8.9 mg/dl (8.4-10.2); Carbon Dioxide 30 mmol/L (22.0-30.0); Globulin 3.3 g/dL (1.3-3.2); Glucose 105 mg/dl (74-100); Magnesium 1.9 mg/dl (1.6-2.3); Phosphorous 3.9 mg/dl (2.5-4.5)
--- NOTE | 2022-03-13 07:15 | PC.NURSE ---
0715 REGULAR BREAKFAST TRAY SET-UP. FAMILY AT BEDSIDE. NO NEEDS AT THIS TIME
--- NOTE | 2022-03-13 07:15 | PC.NURSE ---
checked on pt at this time, dressing to R wrist from heart cath, small amount of bloody drainage noted to dressing. Pt reminded to not use RUE r/t recent heart cath and not wanting to damage cath site or cause bleeding, pt verbalized understanding.
--- NOTE | 2022-03-13 08:14 | PC.NURSE ---
FAMILY AT BEDSIDE, NO NEEDS VOICED. CALL LIGHT WITHIN REACH
--- NOTE | 2022-03-13 08:18 | HMH.PHAINT1 ---
Pharmacy Intervention Comments: home medication reconciliation completed using list from outpatient pharmacy
--- NOTE | 2022-03-13 08:32 | CA_ITS ---
APPROVED REPORT EXAM: Comprehensive 2D, Doppler, and color-flow Echocardiogram Surgical Dental Assistant: Nely Dudley, RT(R) Ht: 5 ft 5 in Wt: 177lbs BSA: 1.88 BP: 130/79 mmHg Indications: elevated troponin, STEMI, 20-25% on heart cath, former substance abuse, rectal cancer, CP, HTN, smoker, palpitations, 3 cardiac stents. 2D Dimensions LVOT 1.77 cm (M/F) 1.5-2.5 LA Volume 37.60 mL LA Volume Index 20.00 mL/m2 (M/F) 16-34 M-Mode Dimensions RVDd 2.51 cm (0.9-2.6) LA Diam 3.01 cm (1.9-4.0) LVDd 5.36 cm (3.5-5.7) Ao Diam 2.93 cm (2.0-3.7) LVDs 4.64 cm (3.5-5.7) IVSd 0.95 cm (0.6-1.1) PWd 0.87 cm (0.6-1.1) EF (Teich) 28.50% FS 13.40% EDV (Teich) 138.90 mL ESV (Teich) 99.30 mL LV Diastology E Decel Time 180.00 (160-240 msec) E/A Ratio 0.4 MED E' 3.30 (< 7 cm/sec) E'/MED E' Ratio 14.12 (>14) Mitral Valve MV E Max Kosta. 47.00 (40-130 cm/s) MV A Velocity 114.00 (40-130 cm/s) E/A Ratio 0.41 MV Decel. Time 180.00 (160-240 ms) MV PHT 53.00 ms Left Ventricle Technically difficult study because of the patient factors and poor acoustic window, repeat study with Definity contrast is recommended. Left atrium is mildly enlarged, left ventricle is normal size mild concentric left ventricular hypertrophy, estimated ejection fraction approximately 30%, there is marked hypokinesis involving mid to distal septum, anterior and anterior apical wall, inferior basal wall is severely hypokinetic. Grade 1 diastolic dysfunction seen without tissue Doppler evidence of raise left atrial pressure. Right Ventricle Right atrium and right ventricle are mildly enlarged with normal contractility. Aortic Valve Aortic valve is thickened and calcified without Doppler evidence of aortic stenosis or aortic insufficiency. Mitral Valve Mitral valve is grossly normal, there is trace mitral regurgitation. Tricuspid Valve Tricuspid grossly normal, there is trace tricuspid regurgitation, tricuspid regurgitation jet velocity is inadequate for calculation of the right ventricular systolic pressure. Pulmonic Valve Pulmonic valve is poorly visualized. Great Vessels Aortic root is normal size. Inferior vena cava is poorly visualized. Pericardium No significant pericardial effusion noted. Conclusion 1. Technically difficult study because of the patient factors and poor acoustic windows, repeat study with Definity contrast is recommended. Normal left ventricular size, mild concentric left ventricular hypertrophy, estimated ejection fraction 30% with multiple segmental wall motion abnormalities described above, grade 1 diastolic dysfunction seen without tissue Doppler evidence of raise left atrial pressure. 2. Trace mitral and tricuspid regurgitation. 3. No significant pericardial effusion noted. 4. Inferior vena cava is poorly visualized. Electronically signed by : Mo Shaffer MD 03/13/2022 16:46:26
--- NOTE | 2022-03-13 08:59 | PC.NURSE ---
Pt given medications at ordered per MAR. Pt sitting up in bed. NO swelling noted to BLE, pulses + and equal bilaterally. Able to move all 4 extremities equally. LS CTA. Heart rhythm regular, tachycardia noted 120 bpm. Dressing to R wrist from heart cath, drainage amount has not changed on dressing. Pt alert and oriented x3, pt ate breakfast tray this morning with no difficulties.
--- NOTE | 2022-03-13 09:10 | PC.NURSE ---
cv lab staff at for echo
--- NOTE | 2022-03-13 09:13 | PC.NURSE ---
yasmeen brownn at BS
--- NOTE | 2022-03-13 09:19 | PC.NURSE ---
per warehouse engineer pt will be going to room 204, room is not available yet but will let us know when it is.
--- NOTE | 2022-03-13 09:50 | EXP.CARD.CON ---
History of Present Illness History of Present Illness Consult date: 03/13/22 Requesting physician: Amelie Davenport Consult reason: chest pain Chief complaint: chest pain History of present illness: This is a 51-year-old female who presented to the emergency department with complaints of chest pain. Her chest pain started yesterday around 2 AM in the morning. She states that this was a pressure/sharp sensation in the central aspect of her chest that radiated to her left breast through her axilla and into her left shoulder blade. The patient states that this was associated with shortness of breath and palpitations. The patient states that the symptoms got quite severe as the day progressed and she came into the emergency department last night with the symptoms and was found to have an anterior STEMI. The patient was taken directly to the cardiac catheterization laboratory and underwent stenting to the LAD, right coronary artery and PDA. The patient will be on Brilinta and aspirin for dual antiplatelet therapy. This morning she states that she feels groggy from the sedation medication she was given yesterday. She denies any chest pain or pressure this morning. She denies any shortness of breath or edema. She denies any fever, chills, nausea, vomiting, diarrhea, PND or orthopnea. The patient does have a history of IV drug use approximately 10 years ago. She denies any current substance abuse. 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 [facility] Disclaimer: The information contained in this section may have been updated after the patient was seen, as this information can be updated by other users. Medical History CAD (coronary artery disease) of artery bypass graft Hyperlipidemia Primary hypertension STEMI (ST elevation myocardial infarction) Tobacco user Social History Smoking Status: Current every day smoker tobacco type: cigarettes packs per day: 1 alcohol intake: never substance use type: former substance user current occupational status: employed Travel in the last 8 weeks: None household members: friend(s) housing: apartment caffeine: Yes Review of Systems Review of Systems Review of systems:: pertinent systems reviewed and negative unless documented below Constitutional Constitutional: Reports system reviewed and no additional complaints, except as documented Eyes Eyes: Reports system reviewed and no additional complaints, except as documented ENT Ears, Nose, Mouth, and Throat: Reports system reviewed and no additional complaints, except as documented *Cardiovascular Cardiovascular: Reports system reviewed and no additional complaints, except as documented, Reports chest pain, Reports chest pain at rest, Reports chest pain with activity, Reports dyspnea on exertion and Reports rapid heart rate *Respiratory Respiratory: Reports system reviewed and no additional complaints, except as documented and Reports dyspnea on exertion *Gastrointestinal Gastrointestinal: Reports system reviewed and no additional complaints, except as documented *Genitourinary Genitourinary: Reports system reviewed and no additional complaints, except as documented *Musculoskeletal Musculoskeletal: Reports system reviewed and no additional complaints, except as documented Integumentary/Breasts Skin/Breast: Reports system reviewed and no additional complaints, except as documented *Neurologic Neurologic: Reports system reviewed and no additional complaints, except as documented Psychiatric Psychiatric: Reports system reviewed and no additional complaints, except as documented Endocrine Endocrine: Reports system reviewed and no additional complaints, except as documented Hematologic/Lymphatic Hematologic/Lymphatic: Reports system reviewed and no additional complaints, except as documented Allergic/Immunologic Allergic/Immunologic: Reports sys
--- NOTE | 2022-03-13 10:38 | PC.NURSE ---
Rounded on patient. Patient is sleeping
--- NOTE | 2022-03-13 12:43 | PC.NURSE ---
REPORT GIVEN TO Robinson MARIEE RN AT THIS TIME
--- NOTE | 2022-03-13 12:52 | PC.NURSE ---
pt transported second floor per wc via alex aguirre
--- NOTE | 2022-03-13 17:10 | EXP.ACUTE.PN ---
Subjective *Date: 03/13/22 *Time: 17:59 Interval history: No acute events overnight. Patient chest pain-free at this time. Complains of some fatigue. Denies nausea, vomiting, diarrhea. No shortness of breath. Vital stable Medical Exam Vital signs and Labs for Last 24 Hours: Vital Signs Temp Pulse Pulse Pulse Pulse Resp BP 03/13/22 16:00 98.3 F 107 H 14 03/13/22 12:57 92 H 16 119/83 03/13/22 08:00 98.0 F 103 H 18 03/13/22 04:00 115 H 16 03/13/22 01:45 104 H 16 03/13/22 00:45 94 H 19 03/13/22 00:15 90 03/13/22 00:15 97.9 F 107 H 21 03/12/22 23:45 110 H 19 03/12/22 23:15 108 H 17 03/12/22 22:45 98.2 F 95 H 17 03/12/22 22:15 86 18 03/12/22 22:00 94 H 16 03/12/22 21:45 92 H 16 03/12/22 21:40 94 H 16 03/12/22 21:35 93 H 16 03/12/22 21:30 93 H 97 H 16 03/12/22 20:24 97.9 F 91 H 16 139/95 H 03/12/22 18:50 97.9 F 95 H 16 BP BP Pulse Ox 03/13/22 16:00 147/93 H 98 03/13/22 12:57 96 03/13/22 08:00 154/93 H 98 03/13/22 04:00 128/86 96 03/13/22 01:45 128/97 H 97 03/13/22 00:45 136/95 H 98 03/13/22 00:15 03/13/22 00:15 132/87 97 03/12/22 23:45 115/89 97 03/12/22 23:15 127/78 98 03/12/22 22:45 140/108 H 98 03/12/22 22:15 183/112 H 98 03/12/22 22:00 183/122 H 98 03/12/22 21:45 177/116 H 94 L 03/12/22 21:40 192/124 H 97 03/12/22 21:35 191/126 H 97 03/12/22 21:30 175/118 H 97 03/12/22 20:24 03/12/22 18:50 154/97 H 96 Intake and Output 03/13/22 03/13/22 03/13/22 07:59 15:59 23:59 Intake Total 2.5 / 122.5 120 / 122.5 Balance 2.5 / 122.5 120 / 122.5 Intake: Intake, Oral Amount 120 / 120 Intake, Total IV Amount 2.5 / 2.5 Other: Weight 78.131 kg Patient Weight 03/13/22 23:59 Weight 78.131 kg Laboratory Results - last 24 hr 03/12/22 19:33: WBC 8.6, RBC 4.38, Hgb 12.9, Hct 38.8, MCV 88.5, MCH 29.5, MCHC 33.4, RDW 14.5, Plt Count 250, MPV 7.4, Neut % (Auto) 81.2 H, Lymph % (Auto) 9.4 L, Bremer % (Auto) 5.9, Eos % (Auto) 2.8, Baso % (Auto) 0.7, Neut # (Auto) 7.0, Lymph # (Auto) 0.8, Bremer # (Auto) 0.5, Eos # (Auto) 0.2, Baso # (Auto) 0.1 03/12/22 19:33: Sodium 140, Potassium 3.2 L, Chloride 105, Carbon Dioxide 29, Anion Gap 9.2, BUN 6 L, Creatinine 0.80, Estimated Creat Clear 111, Estimated GFR 75, Est GFR ( Amer) 91, Glucose 128 H, Calcium 9.5, Troponin I 16.70 H 03/12/22 19:38: SARS-CoV-2 (PCR) Not detected, Influenza A Untype (PCR) Not detected, Influenza Type B (PCR) Not detected 03/12/22 21:41: Activated Clotting Time > 400 H* 03/12/22 22:10: Activated Clotting Time 272 H* D 03/13/22 05:08: WBC 7.3, RBC 4.25, Hgb 12.2, Hct 37.2, MCV 87.4, MCH 28.8, MCHC 32.9, RDW 14.7, Plt Count 254, MPV 7.9, Neut % (Auto) 79.1, Lymph % (Auto) 10.1, Bremer % (Auto) 7.5, Eos % (Auto) 2.7, Baso % (Auto) 0.6, Neut # (Auto) 5.8, Lymph # (Auto) 0.7, Bremer # (Auto) 0.6, Eos # (Auto) 0.2, Baso # (Auto) 0.0 03/13/22 05:08: Sodium 140, Potassium 3.5, Chloride 105, Carbon Dioxide 30, Anion Gap 8.5, BUN 5 L, Creatinine 0.80, Estimated Creat Clear 104, Estimated GFR 75, Est GFR ( Amer) 91, Glucose 105 H, Calcium 8.9, Phosphorus 3.9, Magnesium 1.9, Total Bilirubin 0.4, AST 286 H, ALT 47, Alkaline Phosphatase 121, Total Protein 7.0, Albumin 3.7, Globulin 3.3 H, Albumin/Globulin Ratio 1.1 I & O for Labs for Last 24 Hours: Intake & Output 03/10/22 03/11/22 03/12/22 03/13/22 23:59 23:59 23:59 23:59 Intake Total 521.15 / 523.65 122.5 / 122.5 Output Total 1800 / 1800 Balance -1278.85 / -1276.35 122.5 / 122.5 Weight 80.343 kg 78.131 kg Constitutional: Present no acute distress and chronically ill appearing Head: Present atraumatic and normocephalic ENT: Present normal exam Neck: Present normal inspection Respiratory: Present normal respiratory effort; Absent accessory muscle use, rhonchi, whee
--- NOTE | 2022-03-13 17:53 | PC.NURSE ---
since receiving pt, pt has slept majority of the time with family at bedside. alert x4, lungs clear. pt called out while in the br, pt was crying saying her abd was cramping from a previous dx of colitis from her primary doc. duy notified. pt had a large bm. dsg to rt wrist from cath site, there is some old drainage noted on dsg, nothing new since pt has came to floor. pt back in bed resting well with no c/o at this time.
[2022-03-14] VITALS: BP 130/70; PULSE 90; PULSE 98; RESP 16; TEMP 36.6; O2SAT 96
--- NOTE | 2022-03-14 03:05 | PC.NURSE ---
Pt resting in bed at this time. Has been A/O X 4, drowsy at times. States she is just tired. Pt has denied pain, Lungs clear, resp even and non labored. Both IV's in AC's are Patent, Cath site has no further bleeding. Pt has been Sinus Tach on Tele. Pt has been educated on scheduled medications, and encouraged to report any pain, shortness of air or bleeding at cath site. Bed is locked in low position, side rails up x 2, call light in reach.
[2022-03-14 04:00] VITALS: BP 118/72; PULSE 98; RESP 16; TEMP 36.7; O2SAT 100; BMI 28.4
[2022-03-14 05:14] VITALS: PULSE 90
[2022-03-14 07:26] LABS: Basophils % 0.5 % (0.1-2.0); Eosinophils # 0.3 K/mm3 (0.0-0.4); Eosinophils % 3.3 % (0.1-12.0); Hematocrit 39.3 % (37.0-47.0); Hemoglobin 12.9 g/dL (12.2-16.2); Lymphocytes # 0.8 K/mm3 (0.7-4.5); Lymphocytes % 10.8 % (10-50); Mean Corpuscular HGB Conc 32.9 g/dL (31.8-35.4); Mean Corpuscular Hemoglobin 28.9 pg (27.0-31.2); Mean Corpuscular Volume 87.8 fl (81-99); Monocytes # 0.5 K/mm3 (0.1-1.0); Monocytes % 5.9 % (1.7-9.3); Neutrophils # 6.1 K/mm3 (1.8-7.8); Neutrophils % 79.5 % (37.0-80.0); Platelet Count 260 K/mm3 (142-424); Red Blood Count 4.47 M/mm3 (4.20-5.40); Red Cell Distribution Width 14.8 % (11.5-17.5); White Blood Count 7.6 K/mm3 (4.8-10.8)
--- NOTE | 2022-03-14 07:28 | EXP.ACUTE.PN ---
Subjective *Date: 03/14/22 *Time: 07:28 Medical Exam Vital signs and Labs for Last 24 Hours: Vital Signs Temp Pulse Pulse Resp BP BP Pulse Ox 03/14/22 05:14 90 03/14/22 04:00 98.1 F 98 H 16 118/72 100 03/14/22 00:00 90 03/13/22 20:00 110 H 03/14/22 00:00 97.9 F 98 H 16 130/70 96 03/13/22 20:00 98 F 103 H 16 131/70 94 L 03/13/22 16:00 97 H 03/13/22 16:00 98.3 F 107 H 14 147/93 H 98 03/13/22 12:57 92 H 16 119/83 96 03/13/22 08:00 98.0 F 103 H 18 154/93 H 98 Intake and Output 03/13/22 03/13/22 03/14/22 15:59 23:59 07:59 Intake Total 120 / 242.5 120 / 242.5 Output Total 200 / 200 Balance 120 / 242.5 120 / 242.5 -200 / -200 Intake: Intake, Oral Amount 120 / 240 120 / 240 Output: Output, Urine Amount 200 / 200 Other: Weight 78.131 kg 77.337 kg Patient Weight 03/14/22 23:59 Weight 77.337 kg I & O for Labs for Last 24 Hours: Intake & Output 03/11/22 03/12/22 03/13/22 03/14/22 23:59 23:59 23:59 23:59 Intake Total 521.15 / 523.65 242.5 / 242.5 Output Total 1800 / 1800 200 / 200 Balance -1278.85 / -1276.35 242.5 / 242.5 -200 / -200 Weight 80.343 kg 78.131 kg 77.337 kg
--- NOTE | 2022-03-14 07:28 | EXP.DC.SUM ---
General Admission date:: 03/12/22 Discharge date: 03/14/22 HPI HPI HPI: 51-year-old female presents emergency department with anterior STEMI. Having chest pain since approximately 2 AM radiating to axilla associated with shortness of breath and palpitations. Patient was taken to the catheterization lab and received PCI to mid LAD, PCI to RCA, and PCI to PDA. Patient currently has no concerns or complaints at this time Hospital Course Hospital Course Hospital Course: 51-year-old female with history of rectal cancer.? Presented with STEMI to the ER.? Taken for cardiac cath with stenting to her LAD, RCA, and PDA.? Cardiology continues to follow along, appreciate their recommendations.? Problems addressed as follows: STEMI CAD Hypertension Hyperlipidemia -Cardiology consulted, appreciate their recommendations. Taken to the [facility] on arrival with stenting of her LAD, RCA, and PDA. Echocardiogram obtained with findings of EF approximately 30%.? Severe LV dysfunction.? LifeVest placed prior to discharge. Instructed that she needs to wear this continuously unless taking a shower bath. Blood pressure better controlled during admission. Significant adjustments made to home medication regimen. Medications at discharge as follows: Aspirin 81 mg daily Brilinta 90 mg twice a day Lipitor 80 mg nightly Carvedilol 12.5 mg twice a day Protonix 40 mg daily Valsartan 80 mg twice a day Extensive discussion on day of discharge about tobacco cessation. Will initiate on nicotine patch. Sent to pharmacy at discharge. History of squamous cell rectal cancer.? She follows at [facility].? She has an appoint with GI tomorrow and I have encouraged the patient to keep this appointment to discuss further treatments. Medically stable for discharge home. Follow-up with cardiology in the coming weeks as scheduled. Medications provided via meds to beds at discharge. Exam Data for Last 24 hours Vital signs and Labs for Last 24 Hours: Temp Pulse Resp BP Pulse Ox 98.1 F 90 16 118/72 100 03/14/22 04:00 03/14/22 05:14 03/14/22 04:00 03/14/22 04:00 03/14/22 04:00 I & O for Last 24 hours: Intake & Output 03/11/22 03/12/22 03/13/22 03/14/22 23:59 23:59 23:59 23:59 Intake Total 521.15 / 523.65 242.5 / 242.5 Output Total 1800 / 1800 200 / 200 Balance -1278.85 / -1276.35 242.5 / 242.5 -200 / -200 Weight 80.343 kg 78.131 kg 77.337 kg Constitutional Constitutional: no acute distress and chronically ill appearing *Routine HEENT Exam Head: Present normocephalic Eye: Present EOMI and PERRL ENT: Present mucous membranes moist *Routine Neck Exam Neck: Present supple; Absent lymphadenopathy Routine Chest/Breast/Axilla Exam Comments: Healing incision left upper chest with Dermabond in place from previous squamous cell carcinoma excision *Routine Respiratory Exam Respiratory: Present CTA bilaterally; Absent rhonchi, wheezes or crackles *Routine Cardiovascular Exam Cardiovascular: Present RRR *Routine Abdominal Exam Abdominal: Present soft and normoactive bowel sounds; Absent tenderness *Routine Rectal Exam Patient deferred: visual exam *Routine Exam Patient deferred: external exam *Routine Extremities Exam Extremities: Absent cyanosis, clubbing or edema *Routine Skin Exam Skin: Present warm; Absent rash *Routine Neurological Exam Neurological: Present alert, oriented X3, CN II-XII intact and moving all extremities; Absent altered mental status DS: Diagnosis Discharge Diagnosis (1) STEMI (ST elevation myocardial infarction): Status: Acute (2) CAD (coronary artery disease) of artery bypass graft: Status: Acute (3) Primary hypertension: Status: Acute (4) Hyperlipidemia: Status: Acute (5) ACS (acute coronary syndrome): Status: Acute (6) Rectal cancer: Status: Acute (7) Tobacco user: Status: Acute Meds Home Medications and Allergies Home Medications Medicatio
[2022-03-14 07:34] LABS: Chloride 108 mmol/L (98-107)
[2022-03-14 07:35] LABS: Potassium 4.5 mmoL/L (3.5-5.1); Sodium 141 mmol/L (136-145)
[2022-03-14 07:37] LABS: Alanine Aminotransferase 35 U/L (12-78); Aspartate Amino Transferase 109 U/L (14-36); Blood Urea Nitrogen 11 mg/dl (7-17); Creatinine Clearance Estimated 89 mL/min (50-200); Estimated Glomerular Filt Rate 66 ml/min (>60); GFR (African American) 80 ML/MIN (>60)
[2022-03-14 07:38] LABS: Albumin Level 3.7 g/dl (3.5-5.0); Albumin/Globulin Ratio 1.1 (1.1-1.8); Alkaline Phosphatase 106 U/L (38-126); Anion Gap 12.5 mEq/L (5-15); Bilirubin,Total 0.6 mg/dl (0.2-1.3); Calcium 9.1 mg/dl (8.4-10.2); Carbon Dioxide 25 mmol/L (22.0-30.0); Globulin 3.4 g/dL (1.3-3.2); Glucose 122 mg/dl (74-100); Phosphorous 3.9 mg/dl (2.5-4.5); Total Protein,Serum 7.1 g/dl (6.3-8.2)
[2022-03-14 08:00] VITALS: BP 135/84; PULSE 108; PULSE 80; RESP 16; TEMP 36.6; O2SAT 98
[2022-03-14 08:48] LABS: Cholesterol 169 mg/dl (140-200); HDL Cholesterol 42 mg/dl (40-60); Triglycerides 162 mg/dl (30-150); VLDL Cholesterol 32 mg/dL (0-40)
[2022-03-14 08:58] LABS: Direct LDL Cholesterol 89.22 mg/dL (100-129)
--- NOTE | 2022-03-14 10:34 | EXP.CARD.PN ---
Subjective Subjective Date: 03/14/22 Time: 09:00 Principal diagnosis: STEMI ischemic CM Interval history: This is a 51-year-old white female who presented to the emergency department complaints of chest pain. The patient was found to have a STEMI and taken directly to the cardiac catheterization laboratory and had stenting to the LAD, right coronary artery and PDA. The patient will be on Brilinta and aspirin for dual antiplatelet therapy. She states that she still feels groggy this morning but she is more awake and alert than she was yesterday this is most likely from the sedation she received during the procedure. The patient denies any chest pain or pressure this morning. She denies any shortness of breath or edema. She denies any fever, chills, nausea, vomiting, diarrhea, PND or orthopnea. Exam Data for Last 24 hours Vital signs and Labs for Last 24 Hours: Temp Pulse Resp BP Pulse Ox 97.8 F 108 H 16 135/84 98 03/14/22 08:00 03/14/22 08:00 03/14/22 08:00 03/14/22 08:00 03/14/22 08:00 Laboratory Results - last 24 hr 03/14/22 07:04: Sodium 141, Potassium 4.5 D, Chloride 108 H, Carbon Dioxide 25, Anion Gap 12.5, BUN 11 D, Creatinine 0.90, Estimated Creat Clear 89, Estimated GFR 66, Est GFR ( Amer) 80, Glucose 122 H, Calcium 9.1, Phosphorus 3.9, Total Bilirubin 0.6, AST 109 H D, ALT 35 D, Alkaline Phosphatase 106, Total Protein 7.1, Albumin 3.7, Globulin 3.4 H, Albumin/Globulin Ratio 1.1 03/14/22 07:04: WBC 7.6, RBC 4.47, Hgb 12.9, Hct 39.3, MCV 87.8, MCH 28.9, MCHC 32.9, RDW 14.8, Plt Count 260, MPV 7.0 L, Neut % (Auto) 79.5, Lymph % (Auto) 10.8, [place] % (Auto) 5.9, Eos % (Auto) 3.3, Baso % (Auto) 0.5, Neut # (Auto) 6.1, Lymph # (Auto) 0.8, [place] # (Auto) 0.5, Eos # (Auto) 0.3, Baso # (Auto) 0.0 03/14/22 07:04: Triglycerides 162 H, Cholesterol 169, LDL Cholesterol Direct 89.22 L, VLDL Cholesterol 32, HDL Cholesterol 42, Cholesterol/HDL Ratio 4.0 H I & O for Last 24 hours: Intake & Output 03/11/22 03/12/22 03/13/22 03/14/22 23:59 23:59 23:59 23:59 Intake Total 521.15 / 523.65 242.5 / 242.5 480 / 480 Output Total 1800 / 1800 200 / 200 Balance -1278.85 / -1276.35 242.5 / 242.5 280 / 280 Weight 177 lb 2 oz 172 lb 4 oz 170 lb 8 oz Narrative: Telemetry strip is sinus rhythm. Echocardiogram shows: 1.? Technically difficult study because of the patient factors and poor acoustic windows, repeat study with Definity contrast is recommended.? Normal left ventricular size, mild concentric left ventricular hypertrophy, estimated ejection fraction 30% with multiple segmental wall motion abnormalities described above, grade 1 diastolic dysfunction seen without tissue Doppler evidence of raise left atrial pressure. 2.? Trace mitral and tricuspid regurgitation. 3.? No significant pericardial effusion noted. 4.? Inferior vena cava is poorly visualized. Constitutional Constitutional: no acute distress and average body habitus *Routine HEENT Exam Head: Present normocephalic and atraumatic ENT: Present mucous membranes moist *Routine Neck Exam Neck: Present supple, full ROM and normal carotid upstroke; Absent JVD, carotid bruit or lymphadenopathy *Routine Respiratory Exam Respiratory: Present CTA bilaterally, normal respiratory effort, able to speak in complete sentences and symmetric chest movement *Routine Cardiovascular Exam Cardiovascular: Present RRR, Normal S1 and Normal S2; Absent murmur or gallop *Routine Abdominal Exam Abdominal: Present soft and normoactive bowel sounds; Absent tenderness, distended or organomegaly *Routine Extremities Exam Extremities: Present full ROM, pulses intact and normal capillary refill; Absent cyanosis, clubbing or edema *Routine Skin Exam Skin: Present intact and warm; Absent erythema *Routine Neurological Exam Neurological: Present alert, oriented X3 and CN II-XII intact; Absent sensory deficit or motor deficit Routine Psychiatric Exam Psychiatric: Present normal affect Progress Not
[2022-03-14 12:00] VITALS: BP 138/79; PULSE 100; PULSE 101; RESP 16; TEMP 36.6; O2SAT 95
--- NOTE | 2022-03-14 15:08 | PC.NURSE ---
patient has done well. dressing removed from cath site. no signs of bleeding. education done on post cath wrist care. no questions currently. some complaints of cramping in abdomen. bentyl and tylenol given for this. life vest rep at bedside at this time. patient did have a shower. no questions at this time in regards to meds. encouraged to ring out as needed
--- NOTE | 2022-03-14 16:08 | HMH.PHACL ---
[facility] Employee Development Specialist Discharge Med Facilities Specialist: Viktoriya Hoang has received discharge medication counseling on the following medications: aspirin (NEW), Brilinta (NEW), atorvastatin (NEW), carvedilol (NEW in place of metoprolol), and valsartan (NEW) with mother at bedside. Patient was also instructed to START nicotine patches. Patient was counseled on how to take and possible adverse events. Patient was instructed to STOP Adderall and metoprolol. Questions were answered appropriately. Patient verbalized understanding of the information provided and had no further questions.
--- NOTE | 2022-03-15 14:17 | CARE MANAGER ---
Spoke with patient for post-discharge phone interview, patient is aware of her medications and follow-up appointments.
== END 2022-03-14 16:50 | disposition home or self-care (01) | DRG 246 ==
LOC: ER 20:41 → CATHLAB 20:49 → 2ND 22:00
PROVIDERS: Internal Medicine; Nurse Practitioner Family; Admitting Provider Student in an Organized Health Care Education/Training Program; Emergency Provider Emergency Medicine; PCP Emergency Medicine; Visit Provider Internal Medicine Adolescent Medicine
PROC: 027237Z Dilation of Coronary Artery, Three Arteries with Four or More Drug-eluting Intraluminal Devices, Percutaneous Approach (ICD-10-PCS; principal; 2022-03-12 08:25)
DX: C20 Malignant neoplasm of rectum (principal); I25.810 Atherosclerosis of coronary artery bypass graft(s) without angina pectoris; I21.02 ST elevation (STEMI) myocardial infarction involving left anterior descending coronary artery; I24.9 Acute ischemic heart disease, unspecified; F32.9 Major depressive disorder, single episode, unspecified; F17.210 Nicotine dependence, cigarettes, uncomplicated; I10 Essential (primary) hypertension; E78.5 Hyperlipidemia, unspecified; I25.5 Ischemic cardiomyopathy; Z71.6 Tobacco abuse counseling
CPT/HCPCS: 36415; 80048; 80053; 80061; 83735; 84100; 84484; 85025; 85347; 92928; 92941; 93005; 93306; 93458; 99152; 99153; 99291; C1725; C1769; C1874; C1876; C9600; C9606; C9803; J1644; Q9967; U0003; U0005

== ENCOUNTER 2022-03-31 14:09 | Emergency (ER) | payer MEDICAID, SELFPAY ==
[2022-03-31] VITALS (14 sets, daily range): BP systolic 85–116; BP diastolic 56–81; PULSE 75–95; RESP 18; TEMP 36.5–36.6; O2SAT 94–100; BMI 29.9
[2022-03-31 17:25] LABS: Basophils # 0.1 K/mm3 (0-0.2); Basophils % 1.1 % (0.1-2.0); Chloride 106 mmol/L (98-107); Eosinophils # 0.3 K/mm3 (0.0-0.4); Eosinophils % 4.2 % (0.1-12.0); Hematocrit 37.8 % (37.0-47.0); Hemoglobin 12.6 g/dL (12.2-16.2); Lymphocytes # 0.9 K/mm3 (0.7-4.5); Lymphocytes % 13.1 % (10-50); Mean Corpuscular HGB Conc 33.3 g/dL (31.8-35.4); Mean Corpuscular Hemoglobin 29.3 pg (27.0-31.2); Mean Corpuscular Volume 87.9 fl (81-99); Mean Platelet Volume 7.5 fl (7.4-10.4); Monocytes # 0.5 K/mm3 (0.1-1.0); Monocytes % 6.2 % (1.7-9.3); Neutrophils # 5.5 K/mm3 (1.8-7.8); Neutrophils % 75.4 % (37.0-80.0); Platelet Count 271 K/mm3 (142-424); Potassium 4.3 mmoL/L (3.5-5.1); Red Cell Distribution Width 14.9 % (11.5-17.5); Sodium 140 mmol/L (136-145); White Blood Count 7.2 K/mm3 (4.8-10.8)
[2022-03-31 17:28] LABS: Alanine Aminotransferase 20 U/L (12-78); Albumin Level 4.1 g/dl (3.5-5.0); Albumin/Globulin Ratio 1.1 (1.1-1.8); Alkaline Phosphatase 124 U/L (38-126); Anion Gap 13.3 mEq/L (5-15); Aspartate Amino Transferase 38 U/L (14-36); Bilirubin,Total 0.5 mg/dl (0.2-1.3); Blood Urea Nitrogen 25 mg/dl (7-17); Carbon Dioxide 25 mmol/L (22.0-30.0); Creatinine Clearance Estimated 85 mL/min (50-200); Estimated Glomerular Filt Rate 58 ml/min (>60); GFR (African American) 70 ML/MIN (>60); Globulin 3.8 g/dL (1.3-3.2); Total Protein,Serum 7.9 g/dl (6.3-8.2)
[2022-03-31 17:29] LABS: Calcium 8.7 mg/dl (8.4-10.2); Glucose 123 mg/dl (74-100)
--- NOTE | 2022-03-31 17:46 | CT_ITS ---
PROCEDURE INFORMATION: Exam: CT Abdomen And Pelvis With Contrast Exam date and time: 03/31/2022 6:03 PM Age: 51 years old Clinical indication: Abdominal pain; Additional info: HX rectal cancer, brbpr and lower abd cramping TECHNIQUE: Imaging protocol: Computed tomography of the abdomen and pelvis with contrast. Radiation optimization: All CT scans at this facility use at least one of these dose optimization techniques: automated exposure control; mA and/or kV adjustment per patient size (includes targeted exams where dose is matched to clinical indication); or iterative reconstruction. Contrast material: ISOVUE; Contrast volume: 75 ml; Contrast route: IV; COMPARISON: None FINDINGS: Liver: Normal. No mass. Gallbladder and bile ducts: Normal. No calcified stones. No ductal dilation. Pancreas: Normal. No ductal dilation. Spleen: Normal. No splenomegaly. Adrenal glands: Mild thickening of the left adrenal gland. Findings may reflect mild changes of hyperplasia. Kidneys and ureters: Normal. No hydronephrosis. Stomach and bowel: Unremarkable. No obstruction. No mucosal thickening. Appendix: No evidence of appendicitis. Intraperitoneal space: Unremarkable. No free air. No significant fluid collection. Vasculature: Scattered regions of atherosclerotic vascular calcification within the abdominal aorta and common iliac arteries. Lymph nodes: Unremarkable. No enlarged lymph nodes. Urinary bladder: Unremarkable as visualized. Reproductive: Unremarkable as visualized. Bones/joints: Unremarkable. No acute fracture. Soft tissues: There is asymmetry of the perianal soft tissues along the left lateral aspect. There is associated small collection of air. No discrete soft tissue mass is demonstrated. This region measures approximately 2 cm in maximum dimensions. Other findings: Interpretation limited due to lack of antral contrast administration. IMPRESSION: Approximate 2 cm poorly defined asymmetry of the left perianal soft tissues. Associated small collection of air. Clinically correlate. Findings may reflect recent biopsy. Interpretation limited without contrast in this region. Consider follow-up with magnetic resonance imaging for further evaluation.
--- NOTE | 2022-03-31 18:05 | HMH.EDGENADL ---
Discharge Plan Disposition Patient Disposition: Home, Self-Care Condition: Good Prescriptions Prescriptions: No Action pantoprazole 40 mg tablet,delayed release (DR/EC) 40 mg PO HS dicyclomine 10 mg capsule 10 mg PO TIDP PRN (Reason: Abdominal Pain) carvedilol 25 mg tablet 25 mg PO BID Qty: 60 5RF Rx Instructions: must administer with a meal/food atorvastatin 80 mg tablet 80 mg PO HS Qty: 90 3RF Brilinta 90 mg tablet 90 mg PO BID Qty: 60 5RF valsartan 80 mg tablet 80 mg PO BID Qty: 180 3RF spironolactone [Aldactone] 25 mg tablet 25 mg PO DAILY Qty: 30 2RF bupropion HCl 150 mg tablet sustained-release 12 hr 150 mg PO BID Qty: 60 2RF ergocalciferol (vitamin D2) 1,250 mcg (50,000 unit) capsule 50,000 unit PO WEEKLY Rx Instructions: TAKE ONE CAPSULE BY MOUTH EVERY WEEK FOR SUPPLEMENT aspirin 81 mg Tablet,Delayed Release (Dr/Ec) 81 mg PO DAILY 30 Days Qty: 30 0RF nicotine 14 mg/24 hr patch 24 hour 1 patch transdermal DAILY Qty: 28 0RF Referrals Follow up/Referrals: Anton Sibley MD [Primary Care Provider] - See instructions Activity Restrictions/Add. Instructions Additional Instructions/Restrictions: At this time was felt you are safe to be discharged home. If new or worsening symptoms please do not hesitate to return the emergency department. As discussed, please contact your surgeon or your regulatory compliance engineer for endoscopy as soon as possible. Please maintain your upcoming gastroenterology appointment. Please follow-up with your family doctor in 1 week for continued evaluation if you are unable to obtain GI or surgical follow-up by that time. Clinical Impressions Clinical Impression: GIB (gastrointestinal bleeding) Instructions Patient Instructions: DI for Gastrointestinal Bleeding Discharge ED Provider: Jose Polk General Adult HPI General Chief complaint: GI Bleed Stated complaint: blood in stool Time Seen by Provider: 03/31/22 17:00 Mode of Arrival: Ambulatory Source of Information: Patient Limitations: No Limitations Description of Symptoms (Recalled from ER Triage Doc. by RN): c/o bright red blood in her stool that started at the beginning of the week, increased the past few days, pt states she is having full pads and changing them about 3 times a day the past 2 days. PT has hx of colon CA, states she was started on a blood thinner last week due to her LA recently. History of Present Illness HPI narrative: Patient is a 51-year-old female with past medical history of remote IV drug use, previous rectal cancer status post chemoradiation (last treatment on April), subsequent negative reported colonoscopies, recent ACS status post stenting on dual antiplatelet therapy who presents to the emergency department for evaluation of bright red blood per rectum. Onset was acute, over the last 24 to 48 hours, patient has had multiple episodes of bright red blood with clots intermittent with stool. Patient states that she also has intermittent cramping lower abdominal pain. No vomiting. Afebrile. No other acute complaints at this time. Related Data Home Medications Medication Instructions Recorded Confirmed dicyclomine 10 mg capsule 10 mg PO TIDP PRN Abdominal Pain 02/02/22 03/21/22 pantoprazole 40 mg tablet,delayed 40 mg PO HS acid reflux 02/02/22 03/21/22 release ergocalciferol (vitamin D2) 1,250 50,000 unit PO WEEKLY Supplement 03/12/22 03/21/22 mcg (50,000 unit) capsule Previous Rx's Medication Instructions Recorded aspirin 81 mg tablet,delayed 81 mg PO DAILY 30 days #30 tabs 03/14/22 release nicotine 14 mg/24 hr daily 1 patch transdermal DAILY #28 ea 03/14/22 transdermal patch atorvastatin 80 mg tablet 80 mg PO HS #90 tabs 03/21/22 bupropion HCl 150 mg tablet,12 hr 150 mg PO BID #60 ea 03/21/22 sustained-release carvedilol 25 mg tablet 25 mg PO BID #60 tabs 03/21/22 spironolactone 25 mg tablet 25 mg PO
[2022-03-31 18:19] LABS: Coronavirus 19, PCR Not Detected (NotDetected); Influenza A, PCR Not Detected (NotDetected); Influenza B, PCR Not Detected (NotDetected)
--- NOTE | 2022-03-31 18:36 | PC.NURSE ---
Assisted MD with rectal exam. Pt tolerated well. No occult stool collected at this time per MD.
--- NOTE | 2022-03-31 19:38 | PC.NURSE ---
Updated pt on POC. No needs voiced at this time.
--- NOTE | 2022-03-31 20:05 | PC.NURSE ---
Dr. Polk at BS updating pt on results
== END 2022-03-31 20:25 | disposition home or self-care (01) ==
LOC: ER 16:09 → UTC 16:12 → ER 16:27
PROVIDERS: Emergency Provider Emergency Medicine; PCP Emergency Medicine
DX: K92.2 Gastrointestinal hemorrhage, unspecified (principal); I50.21 Acute systolic (congestive) heart failure; I25.10 Atherosclerotic heart disease of native coronary artery without angina pectoris; E78.5 Hyperlipidemia, unspecified; I25.5 Ischemic cardiomyopathy; I11.0 Hypertensive heart disease with heart failure; I25.2 Old myocardial infarction; F17.210 Nicotine dependence, cigarettes, uncomplicated; Z20.822 Contact with and (suspected) exposure to COVID-19
CPT/HCPCS: 74177; 80053; 85025; 96360; 99285; C9803; Q9967; U0003; U0005

== ENCOUNTER → 2022-05-23 15:42 | Outpatient (CLI) | payer MEDICAID, SELFPAY | PROVIDERS: PCP Emergency Medicine; Visit Provider Physician Assistant | DX: I50.21 Acute systolic (congestive) heart failure (principal); I25.810 Atherosclerosis of coronary artery bypass graft(s) without angina pectoris; I25.5 Ischemic cardiomyopathy; I10 Essential (primary) hypertension; E78.2 Mixed hyperlipidemia; I51.9 Heart disease, unspecified; Z72.0 Tobacco use; Z95.810 Presence of automatic (implantable) cardiac defibrillator ==

== ENCOUNTER → 2022-07-09 14:16 | Outpatient (CLI) | payer MEDICAID, SELFPAY ==
[2022-07-09 14:18] LABS: Benzodiazepines Screen,Urine Negative ng/ml (<200)
[2022-07-09 14:19] LABS: Amphetamine/Metha Screen,Urine Positive ng/ml (<1000); Barbiturates Screen,Urine Negative ng/ml (<200)
[2022-07-09 14:20] LABS: Cannabinoid Screen,Urine Negative ng/ml (<50); Cocaine Screen,Urine Negative ng/ml (<300)
[2022-07-09 14:21] LABS: Methadone Screen,Urine Negative ng/ml (<300)
[2022-07-09 14:22] LABS: Opiate Screen,Urine Negative ng/ml (<300); Phencyclidine Screen,Urine Negative ng/ml (<25)
== END ==
PROVIDERS: PCP Emergency Medicine; Visit Provider Emergency Medicine
DX: F90.9 Attention-deficit hyperactivity disorder, unspecified type (principal)
CPT/HCPCS: 80305

== ENCOUNTER 2022-09-10 20:40 | Emergency (ER) | payer MEDICAID, SELFPAY ==
--- NOTE | 2022-09-10 20:38 | ECG_ITS ---
APPROVED REPORT Exam: Resting ECG HR:89 bpm ECG Measurements Heart Rate 89 AXES OH 180 P 48 QRSd 79 QRS -21 QT 358 T 66 QTc 404 Conclusion SINUS RHYTHM LEFT ATRIAL Abnormality BORDERLINE LEFT AXIS DEVIATION [QRS AXIS < -20] BORDERLINE ECG UNCONFIRMED REPORT Electronically signed by : Ector Castro MD 09/10/2022 21:23:45
[2022-09-10 20:40] VITALS: BP 177/109; PULSE 94; RESP 21; TEMP 36.9; O2SAT 97; BMI 29.9
[2022-09-10 20:41] VITALS: BMI 29.9
--- NOTE | 2022-09-10 20:41 | XR_ITS ---
PROCEDURE INFORMATION: Exam: XR Chest Exam date and time: 09/10/2022 8:54 PM Age: 52 years old Clinical indication: Left-sided; Patient HX: HX heart attack, C/O left sided chest pain TECHNIQUE: Imaging protocol: Radiologic exam of the chest. Views: 2 views. COMPARISON: CT ABDOMEN PELVIS W CON 03/31/2022 6:03 PM FINDINGS: Lungs: Low lung volumes and bronchovascular crowding. Scattered interstitial opacities throughout both lungs. Scattered bibasilar opacities may represent subsegmental atelectasis. Suspected mild peribronchial cuffing. Pleural spaces: Unremarkable. No large pleural effusion. No pneumothorax. Heart/Mediastinum: The cardiomediastinal silhouette is mildly prominent on portable view. The thoracic aorta is atherosclerotic and tortuous. There are coronal atherosclerotic calcifications. Bones/joints: There are degenerative changes of the spine and shoulder joints. IMPRESSION: 1. No pneumothorax. No large pleural effusion. 2. Atherosclerosis. 3. Bibasilar opacities may represent atelectasis. 4. Spondylosis.
[2022-09-10 20:55] LABS: Basophils % 0.7 % (0.1-2.0); Eosinophils # 0.2 K/mm3 (0.0-0.4); Eosinophils % 4.8 % (0.1-12.0); Hematocrit 36.5 % (37.0-47.0); Hemoglobin 11.9 g/dL (12.2-16.2); Lymphocytes # 0.8 K/mm3 (0.7-4.5); Lymphocytes % 15.4 % (10-50); Mean Corpuscular HGB Conc 32.6 g/dL (31.8-35.4); Mean Corpuscular Hemoglobin 29.4 pg (27.0-31.2); Mean Corpuscular Volume 90.3 fl (81-99); Mean Platelet Volume 7.5 fl (7.4-10.4); Monocytes # 0.4 K/mm3 (0.1-1.0); Monocytes % 8.4 % (1.7-9.3); Neutrophils # 3.5 K/mm3 (1.8-7.8); Neutrophils % 70.6 % (37.0-80.0); Platelet Count 242 K/mm3 (142-424); Red Blood Count 4.04 M/mm3 (4.20-5.40)
[2022-09-10 21:00] VITALS: BP 186/106; PULSE 83; RESP 21; O2SAT 97
[2022-09-10 21:06] LABS: Alanine Aminotransferase 29 U/L (12-78); Albumin Level 4.3 g/dl (3.5-5.0); Albumin/Globulin Ratio 1.3 (1.1-1.8); Alkaline Phosphatase 123 U/L (38-126); Anion Gap 14.2 mEq/L (5-15); Aspartate Amino Transferase 39 U/L (14-36); Bilirubin,Total 0.4 mg/dl (0.2-1.3); Blood Urea Nitrogen 15 mg/dl (7-17); Calcium 8.9 mg/dl (8.4-10.2); Carbon Dioxide 27 mmol/L (22.0-30.0); Chloride 106 mmol/L (98-107); Creatinine Clearance Estimated 93 mL/min (50-200); Estimated Glomerular Filt Rate 65 ml/min (>60); GFR (African American) 79 ML/MIN (>60); Globulin 3.4 g/dL (1.3-3.2); Glucose 104 mg/dl (74-100); Potassium 3.2 mmoL/L (3.5-5.1); Sodium 144 mmol/L (136-145); Total Protein,Serum 7.7 g/dl (6.3-8.2)
[2022-09-10 21:18] LABS: Troponin I 0.02 ng/ml (0.00-0.034)
[2022-09-10 21:30] VITALS: BP 156/100; PULSE 81; O2SAT 95
--- NOTE | 2022-09-10 22:33 | PC.NURSE ---
ER at bedside
--- NOTE | 2022-09-10 22:35 | CT_ITS ---
PROCEDURE INFORMATION: Exam: CTA Chest With Contrast Exam date and time: 09/10/2022 11:11 PM Age: 52 years old Clinical indication: Pain; Left-sided; Additional info: Chest pain TECHNIQUE: Imaging protocol: Computed tomographic angiography of the chest with contrast. Exam focused on the arteries. 3D rendering (Not supervised by radiologist): MIP and/or 3D reconstructed images were created by the technologist. Radiation optimization: All CT scans at this facility use at least one of these dose optimization techniques: automated exposure control; mA and/or kV adjustment per patient size (includes targeted exams where dose is matched to clinical indication); or iterative reconstruction. Contrast material: ISOVUE; Contrast volume: 70 ml; Contrast route: INTRAVENOUS (IV); REPORTING DATA: Count of CT and Cardiac NM exams in prior 12 months: This patient has received [address] and 0 known cardiac nuclear medicine studies in the 12 months prior to the current study. COMPARISON: CR XR CHEST 2V 09/10/2022 8:54 PM FINDINGS: Pulmonary arteries: Normal. No pulmonary emboli. Aorta: There are atherosclerotic calcifications of the thoracic aorta. There are atherosclerotic calcifications of the proximal arch vessels. No aortic aneurysm. No aortic dissection. Lungs: Unremarkable. No consolidation. No masses. Pleural spaces: Unremarkable. No pneumothorax. No pleural effusion. Heart: Borderline cardiomegaly and left atrial enlargement. No pericardial effusion. Coronary arteries: There are atherosclerotic calcifications of the coronary arteries. Lymph nodes: Calcified hilar and mediastinal lymph nodes are nonspecific.. No enlarged lymph nodes. Bones/joints: Exaggeration of the thoracic kyphosis. No acute fracture. Soft tissues: Unremarkable. IMPRESSION: 1. No evidence of acute pulmonary embolism. 2. Coronary atherosclerosis. 3. Mild degenerative changes of the thoracic spine.
--- NOTE | 2022-09-10 22:46 | HMH.EDCP ---
Discharge Plan Disposition Patient Disposition: Home, Self-Care Chief Complaint: Chest Pain Prescriptions Prescriptions: No Action pantoprazole 40 mg tablet,delayed release (DR/EC) 40 mg PO HS dicyclomine 10 mg capsule 10 mg PO TIDP PRN (Reason: Abdominal Pain) Brilinta 90 mg tablet 90 mg PO BID Qty: 180 3RF ergocalciferol (vitamin D2) 1,250 mcg (50,000 unit) capsule 50,000 unit PO WEEKLY Qty: 14 2RF Rx Instructions: TAKE ONE CAPSULE BY MOUTH EVERY WEEK FOR SUPPLEMENT aspirin 81 mg tablet,delayed release (DR/EC) 81 mg PO DAILY 30 Days Qty: 30 0RF bupropion HCl 150 mg tablet sustained-release 12 hr See Rx Instructions .ROUTE .COMPLEX Qty: 60 2RF Dose Instruction: TAKE ONE TABLET BY MOUTH 2 TIMES A DAY Rx Instructions: TAKE ONE TABLET BY MOUTH 2 TIMES A DAY atorvastatin 80 mg tablet 80 mg PO HS Qty: 30 3RF carvedilol 25 mg tablet 25 mg PO BID Qty: 60 3RF Rx Instructions: must administer with a meal/food spironolactone [Aldactone] 25 mg tablet 25 mg PO DAILY Qty: 30 3RF valsartan 160 mg tablet 160 mg PO BID Qty: 60 3RF dextroamphetamine-amphetamine [Adderall] 20 mg tablet 20 mg PO TID Qty: 90 0RF Rx Instructions: administer doses at least 4-6 hours apart nicotine 14 mg/24 hr patch 24 hour 1 patch transdermal DAILY Qty: 28 0RF Referrals Follow up/Referrals: Anton Sibley MD [Primary Care Provider] - See instructions Low Davenport MD [Staff Physician] - See instructions Clinical Impressions Clinical Impression: Chest pain Instructions Patient Instructions: DI for Chest Pain Discharge ED Provider: Toñito (ED)Anton Chest Pain HPI General Chief Complaint: Chest Pain Stated Complaint: chest pain Time Seen by Provider: 09/10/22 22:46 Mode of Arrival: Family Vehicle Source of Information: Patient and Medical Record Limitations: No Limitations Description of Symptoms (Recalled from ER Triage Doc. by RN): Pt c/o left Chest wall pain that began suddenly while at work tonight @ 1730. States the pain has not decreased and rates 5/10 on [employer]. She reports she had a NM 03/[address] Davenport placed 4 stents. She takes Brillinta and Aspirin and has taken her medication today. Denies ny SOA, cough, or recent illness. She did have nausea when the pain began, denies any lingering nausea. History of Present Illness HPI narrative: pt with acute episode of ant chest pain tonight - has hx of cad - no fever or other c/o - no cough /illness or rash and no trauma MD complaint: chest pain indicative of cardiac Onset (ago): hour(s) Duration: intermittent Activity at onset: during rest Pain location: left chest Severity: moderate Quality: sharp Risk Factors for CAD: Hypertension and Family Hx of CAD Treatments prior to or on arrival for Cardiac Chest Pain: none SHAYNE Score for Non-Stemi Age of Patient: 50-59 years old Heart Rate: 70-89 bpm Systolic Blood Pressure: 160-199 mmHg Serum Creatinine: 0.80-1.19 mg/dl CHF [place] Class: I-No CHF Other Risk Factors: None Non-Stemi Risk Score: 67 Risk Stratification: 1-108 = Low Risk Related Data Prior Cardiac Testing/Procedures: Stenting On Oral Contraceptives: No Home Medications Medication Instructions Recorded Confirmed dicyclomine 10 mg capsule 10 mg PO TIDP PRN Abdominal Pain 02/02/22 07/24/22 pantoprazole 40 mg tablet,delayed 40 mg PO HS acid reflux 02/02/22 07/24/22 release Previous Rx's Medication Instructions Recorded nicotine 14 mg/24 hr daily 1 patch transdermal DAILY #28 ea 03/14/22 transdermal patch ergocalciferol (vitamin D2) 1,250 50,000 unit PO WEEKLY Supplement 04/03/22 mcg (50,000 unit) capsule #14 caps aspirin 81 mg tablet,delayed 81 mg PO DAILY 30 days #30 tabs 04/16/22 release ticagrelor 90 mg tablet (Brilinta) 90 mg PO BID #180 tabs 05/24/22 bupropion HCl 150 mg tablet,12 hr See Rx Instructions .Route 08/20/22 sustained-release .COMPLEX #6
[2022-09-10 23:03] LABS: Amylase 68 U/L (30-110); Lipase 39 U/L (23-300)
--- NOTE | 2022-09-10 23:11 | PC.NURSE ---
pt to scan
[2022-09-10 23:30] VITALS: BP 190/97; PULSE 86; O2SAT 93
[2022-09-10 23:50] LABS: Troponin I 0.02 ng/ml (0.00-0.034)
[2022-09-11] VITALS: BP 169/109; PULSE 84; O2SAT 97
[2022-09-11 00:25] VITALS: BP 168/93; PULSE 86; RESP 19; TEMP 36.8; O2SAT 99
--- NOTE | 2022-09-11 00:25 | PC.NURSE ---
ER at bedside
--- NOTE | 2022-09-11 00:26 | PC.NURSE ---
MD at bedside discussing POC with pt
== END 2022-09-11 00:32 | disposition home or self-care (01) ==
PROVIDERS: Emergency Provider Emergency Medicine; PCP Emergency Medicine
DX: R07.9 Chest pain, unspecified (principal); I25.10 Atherosclerotic heart disease of native coronary artery without angina pectoris; I11.0 Hypertensive heart disease with heart failure; I50.21 Acute systolic (congestive) heart failure; E78.5 Hyperlipidemia, unspecified; I25.5 Ischemic cardiomyopathy; I25.2 Old myocardial infarction; Z87.891 Personal history of nicotine dependence
CPT/HCPCS: 71046; 71275; 80053; 82150; 83690; 84484; 85025; 93005; 96361; 96374; 99285; J2405; Q9967

== ENCOUNTER → 2022-09-17 23:35 | Outpatient (CLI) | payer OTHER, SELFPAY ==
[2022-09-17 18:53] LABS: Amphetamine/Metha Screen,Urine Positive ng/ml (<1000)
[2022-09-17 18:54] LABS: Barbiturates Screen,Urine Negative ng/ml (<200); Benzodiazepines Screen,Urine Negative ng/ml (<200)
[2022-09-17 18:55] LABS: Cannabinoid Screen,Urine Negative ng/ml (<50); Cocaine Screen,Urine Negative ng/ml (<300)
[2022-09-17 18:56] LABS: Methadone Screen,Urine Negative ng/ml (<300)
[2022-09-17 18:57] LABS: Opiate Screen,Urine Negative ng/ml (<300); Phencyclidine Screen,Urine Negative ng/ml (<25)
== END ==
LOC: LAB.DROPOF 23:35
PROVIDERS: PCP Emergency Medicine; Visit Provider Emergency Medicine
DX: Z79.899 Other long term (current) drug therapy (principal)
CPT/HCPCS: 80305

== ENCOUNTER → 2022-12-05 10:13 | Outpatient (CLI) | payer OTHER, SELFPAY ==
[2022-11-14 15:03] LABS: Amphetamine/Metha Screen,Urine Positive ng/ml (<1000); Barbiturates Screen,Urine Negative ng/ml (<200)
[2022-11-14 15:08] LABS: Benzodiazepines Screen,Urine Negative ng/ml (<200)
[2022-11-14 15:09] LABS: Cannabinoid Screen,Urine Negative ng/ml (<50); Cocaine Screen,Urine Negative ng/ml (<300)
[2022-11-14 15:10] LABS: Methadone Screen,Urine Negative ng/ml (<300)
[2022-11-14 15:11] LABS: Opiate Screen,Urine Negative ng/ml (<300); Phencyclidine Screen,Urine Negative ng/ml (<25)
[2022-11-14 15:18] LABS: Alanine Aminotransferase 22 U/L (12-78); Albumin Level 4.2 g/dl (3.5-5.0); Alkaline Phosphatase 125 U/L (38-126); Aspartate Amino Transferase 29 U/L (14-36); Bilirubin,Indirect 0.4 mg/dL (0.0-0.9); Bilirubin,Total 0.4 mg/dl (0.2-1.3); Bilirubin,Unconjugated 0.5 mg/dL (0.0-1.1); Chol/HDL Ratio 2.6 (1-3.5); Cholesterol 127 mg/dl (140-200); HDL Cholesterol 48 mg/dl (40-60); Total Protein,Serum 7.4 g/dl (6.3-8.2); Triglycerides 149 mg/dl (30-150); VLDL Cholesterol 30 mg/dL (0-40)
[2022-11-14 15:30] LABS: Direct LDL Cholesterol 54.77 mg/dL (100-129)
== END ==
LOC: LAB.DROPOF 10:14
PROVIDERS: Family Medicine; PCP Emergency Medicine; Visit Provider Emergency Medicine
DX: E78.5 Hyperlipidemia, unspecified (principal); I25.10 Atherosclerotic heart disease of native coronary artery without angina pectoris; I51.9 Heart disease, unspecified
CPT/HCPCS: 80061; 80076; 80305

== ENCOUNTER → 2022-12-13 09:25 | Outpatient (CLI) | payer OTHER, SELFPAY ==
--- NOTE | 2022-12-13 | CA_ITS ---
APPROVED REPORT Exam: Exercise Treadmill Technologist: Charleen Penn, Ht: 5 ft 5 in Wt: 178 lbs BSA: 1.88 m2 HR: 84 bpm BP: 140/98 mmHg Rhythm: NSR Medical History Medications: Aspirin,,,,, Pantoprazole,,,,, Atorvastatin,,,,, Carvedilol,,,,, Nicotine,,,,, Valsartan,,,,, Plavix,,,,, DicyCLOMINE,,,,, Aldactone,,,,, Vitamin D2,,,,, ADderALL,,,,, BuPROPION HCI,,,,, Stress Test Details Test: Carmelo HR Resting HR: 84 bpm Max Heart Rate (APMHR): 167 bpm Max HR Achieved: 121 bpm Target HR (85% APMHR): 142 bpm % of APMHR: 72 Recovery HR: 79 bpm HR response to stress: Blunted HR response to stress BP Resting BP: 140.0/98.0 mmHg Max BP: 155.0/87.0 mmHg Recovery BP: 155.0/87.0 mmHg BP response to stress: Blunted blood pressure response to stress. ECG Resting ECG: NSR, leftward axis, cannot R/O old anterior NJ, delayed RS transition in precordial leads Stress ECG: No significant ST changes Arrhythmia: PVCs Recovery ECG: No significant ST changes Recovery Arrhythmia: None Clinical Exercise duration: 05:03 min Highest Stage Achieved: II Exercise capacity: 7.0 METs Overall Exercise Capacity for Age: Poor Stress ECG Conclusion This was a suboptimal stress test in the setting of inability to achieve target HR. The patient was able to exercise for a total of 5 minutes, 3 seconds. She achieved a total of 7 METS. She has poor exercise capacity compared to age and sex matched peers. Max HR: 111 % of PM: 66% Max BP: 152/84 METs: 7.0 Test stopped due to: SOA, Fatigue Symptoms: SOA, No CP. Arrhythmias/Ectopy: Rare PVC. ST-T Changes: No significant ST changes for the level of HR achieved Conclusion: Suboptimal and nondiagnostic stress test due to inability to achieve target HR. Poor exercise capacity. Stress Echo findings are reported separately. Test Summary REST 03:39 0.0 0.0 84 . 140/ 98 . . Stage 1 01:00 10.0 1.7 92 . . . . Stage 1 02:00 10.0 1.7 99 . . . . Stage 1 03:00 10.0 1.7 104 . 152/ 84 . . Stage 2 01:00 12.0 2.5 107 . . . . Stage 2 02:00 12.0 2.5 110 . . . . Stage 2 02:03 12.0 2.5 110 . . . Stop exercise at 05:03 RECOVERY 01:00 0.0 0.0 105 . . . . RECOVERY 02:00 0.0 0.0 77 . . . . RECOVERY 03:00 0.0 0.0 73 . 147/ 78 . . RECOVERY 04:00 0.0 0.0 75 . 152/ 85 . . RECOVERY 05:00 0.0 0.0 79 . 152/ 85 . . RECOVERY 05:48 0.0 0.0 94 . 155/ 87 . . Electronically signed by : Alysha Cline MD 12/15/2022 01:31:18
--- NOTE | 2022-12-13 09:30 | CA_ITS ---
APPROVED REPORT EXAM: Comprehensive 2D, Doppler, and color-flow Echocardiogram Gel Coater: RT Domenic(R) Ht: 5 ft 5 in Wt: 178lbs BSA: 1.88 BP: 154/91 mmHg Rhythm: NSR Indications: SOB, HTN, hyperlipidemia, CHF, ADHD, CAD, CM, hx NH 02/2022, cardiac stents. Medical History Physical Disabilities: Legs Echo Procedure The patient underwent an Exercise Stress Test using the Carmelo Protocol. Blood pressure, heart rate, and EKG were monitored. An Echocardiogram was performed by county program technician in four stages in quad fashion. At peak stress, four selected images were obtained and placed side by side with resting images for comparison. Stress Test Details HR Resting HR: 74 bpm Max Heart Rate (APMHR): 167 bpm Max HR Achieved: 111 bpm Target HR (85% APMHR): 142 bpm % of APMHR: 66 BP ECG Echo Findings The Pre-Stress Echocardiogram showed normal left ventricular contractility with an estimated Ejection Fraction of about 55%. Normal wall motion in all segments on baseline images. The Post-Stress Echocardiogram showed normal left ventricular contractility with an estimated Ejection Fraction of about 65%. Normal left ventricular size and function with no regional wall motion abnormalities. Other Information Study Quality: Adequate Conclusion This was a suboptimal stress test due to inability to achieve target HR. At the level of HR achieved, there are no regional wall motion abnormalities noted. There is adequate augmentation of LVEF at peak stress. As this was a nondiagnostic test, an alternative diagnostic modality to evaluate for ischemia is recommended if clinically indicated (pharmacologic nuclear stress test). Of note, CCTA may be suboptimal due to prior history of stents. Electronically signed by : Alysha Cline MD 12/15/2022 01:39:05
== END ==
LOC: RT 09:26
PROVIDERS: PCP Emergency Medicine; Visit Provider Nurse Practitioner Family
DX: R06.02 Shortness of breath (principal); I20.8 Other forms of angina pectoris
CPT/HCPCS: 93017; 93350

== ENCOUNTER → 2022-12-28 06:14 | Outpatient (CLI) | payer OTHER, SELFPAY ==
--- NOTE | 2022-12-28 06:41 | NM_ITS ---
APPROVED REPORT Exam: Nuclear Stress Test Indication: soa..fatigue Patient Location: Outpatient Stress Tech: Charleen Angel MT Tech:ADRIAN Chavarria RT(R)(N) Ht: 5 ft 5 in Wt: 178 lbs Bra Size: 38c HR: 74 bpm BP: 132/89 mmHg BSA: 1.88 m2 Rhythm: NSR TID: 1.18 BMI: 29.6 History: soa..fatigue Procedure: Patient received 0.4 mg of intravenous Lexiscan, resting heart rate 74 bpm, resting blood pressure 132/89 mmHg, with Lexiscan maximum heart rate achieved was 82 bpm which is 85 % of the maximum predicted heart rate and blood pressure was 135/85 mmHg. With Lexiscan, patient denied any complaint of chest pain. Cardiac Stress and Resting SPECT Images: Cardiac Stress and Resting SPECT images were obtained using technetium 99m Myoview 31.8 mCi stress and 10.04 mCi at rest. Resting and stress imaging in supine and prone positions demonstrate a large sized, moderate, partially reversible perfusion defect in the inferior LV wall from the base and extending distally towards the inferoapical region. Gated imaging demonstrates mild reduction in global LV systolic function. There is moderate hypokinesis of the basal inferior LV wall. LVEF is calculated at 49%. Conclusion: Large sized, moderate, partially reversible perfusion defect in the inferior LV wall from the base and extending distally towards the inferoapical region. Findings are suggestive of partial reversible ischemia. Gated imaging demonstrates mild reduction in global LV systolic function. There is moderate hypokinesis of the basal inferior LV wall. LVEF is calculated at 49%. Electronically signed by : Alysha Cline MD 01/01/2023 21:08:13
--- NOTE | 2022-12-28 09:20 | CA_ITS ---
APPROVED REPORT Exam: Pharmacologic Technologist: Charleen Penn, Ht: 5 ft 5 in Wt: 175 lbs BSA: 1.87 m2 HR: 73 bpm BP: 132/89 mmHg Rhythm: NSR Medical History Medications: Aspirin,,,,, Pantoprazole,,,,, Atorvastatin,,,,, Carvedilol,,,,, Nicotine,,,,, CloPIdogrel,,,,, Valsartan,,,,, DicyCLOMINE,,,,, BuPROPION,,,,, SpirOnolactone,,,,, ADderALL,,,,, Vit D2,,,,, Stress Test Details Test: LEXISCAN Reason for pharmacologic stress test: physical limitation. HR Resting HR: 74 bpm Max Heart Rate (APMHR): 167 bpm Max HR Achieved: 82 bpm Target HR (85% APMHR): 142 bpm % of APMHR: 49 Recovery HR: 73 bpm BP Resting BP: 132/89 mmHg Max BP: 135/85 mmHg Recovery BP: 135.0/85.0 mmHg ECG Resting ECG: NSR, possible old inferior NE, cannot R/O ond anterior NE Stress ECG: No significant ST changes Arrhythmia: None Clinical Exercise duration: 04:01 min Highest Stage Achieved: Exercise capacity: 1.0 METs Stress ECG Conclusion Symptoms: SOA, head discomfort. No CP. Arrhythmias/Ectopy: None ST-T Changes: No significant ST changes. Conclusion: Unremarkable Lexiscan stress. Myoview images reported separately. Test Summary REST . . . . . . . Resting REST 06:23 . . 74 . 132/ 89 . . Stage 1 01:00 . . 78 . . . . Stage 2 01:00 . . 78 . . . . Stage 3 01:00 . . 75 . 126/ 71 . . Stage 4 01:00 . . 74 . 122/ 78 . . Stage 4 01:01 . . 74 . 122/ 78 . Stop exercise at 04:01 RECOVERY 01:00 . . 81 . 125/ 85 . . RECOVERY 02:00 . . 76 . 127/ 90 . . RECOVERY 03:00 . . 74 . 135/ 85 . . RECOVERY 03:22 . . 73 . 135/ 85 . . Electronically signed by : Alysha Cline MD 01/01/2023 21:05:42
== END ==
LOC: RAD 06:15
PROVIDERS: PCP Emergency Medicine; Visit Provider Nurse Practitioner Family
DX: R07.9 Chest pain, unspecified (principal); I25.10 Atherosclerotic heart disease of native coronary artery without angina pectoris; R53.83 Other fatigue
CPT/HCPCS: 78452; 93017; A9502; J2785

== ENCOUNTER → 2023-01-09 15:45 | Outpatient (CLI) | payer OTHER, SELFPAY ==
[2023-01-09 15:49] LABS: Benzodiazepines Screen,Urine Negative ng/ml (<200)
[2023-01-09 15:50] LABS: Barbiturates Screen,Urine Negative ng/ml (<200)
[2023-01-09 15:51] LABS: Cannabinoid Screen,Urine Negative ng/ml (<50); Cocaine Screen,Urine Negative ng/ml (<300)
[2023-01-09 15:52] LABS: Methadone Screen,Urine Negative ng/ml (<300)
[2023-01-09 15:54] LABS: Opiate Screen,Urine Negative ng/ml (<300); Phencyclidine Screen,Urine Negative ng/ml (<25)
[2023-01-15 13:38] LABS: Amphetamine Positive (.); Amphetamine (GC/MS) >3000 ng/mL (Cutoff=500); Amphetamines Positive (.); Methamphetamine Positive (.); Methamphetamine (GC/MS) 3674 ng/mL (Cutoff=500)
== END ==
PROVIDERS: PCP Emergency Medicine; Visit Provider Emergency Medicine
DX: Z79.899 Other long term (current) drug therapy (principal)
CPT/HCPCS: 80305; 80324

== ENCOUNTER 2023-01-21 09:21 | Day surgery (SDC) | payer OTHER, SELFPAY ==
[2023-01-21] VITALS (14 sets, daily range): BP systolic 100–161; BP diastolic 67–92; PULSE 65–73; RESP 14–20; O2SAT 94–99; BMI 29.4
--- NOTE | 2023-01-21 07:44 | IR_ITS ---
APPROVED REPORT Patient Location: Outpatient Coring Machine Operator: ADRIAN Bermeo RT (R) PROCEDURES Selective coronary angiogram Drug-eluting stent deployment to the mid dominant right coronary Drug-eluting stent deployment to the ostial posterior lateral ventricular branch Drug-eluting stent deployment to the ostial posterior descending artery INDICATION Coronary artery disease, High risk abnormal Myoview, Angina pectoris Informed consent was obtained prior to the procedure. COMPLICATIONS None Estimated Blood Loss: Less than 10 mls TECHNIQUE One percent lidocaine used to anesthetize the right anterior aspect of the wrist. The right radial artery was accessed via the Seldinger technique. A 6 Swedish sheath was placed in the right radial artery. 2.5 mg of Verapamil, 800 mcg of nitroglycerin, 1mg Lidocaine and 5000 U Heparin were given through the arterial sheath. The papa catheter was also used to perform selective coronary angiography. At the end the diagnostic angiogram therapeutic heparin was administered giving a therapeutic ACT and the guide catheter was placed in the right coronary followed by Choice PT extra-support wire being placed into the posterior lateral branch. A 4 mm x 18 mm Audi frontier stent was deployed at 18 jovan reducing the stenosis. There was encroachment upon the posterior lateral branch with an 80 to 90% ostial stenosis. An additional wire was placed into the posterior descending artery and a 2 mm balloon was used to open the struts going into the posterior descending artery. A 2.5 x 22 mm Audi frontier stent was placed in the mid dominant right coronary extending into the proximal posterior descending artery and an additional 2.25 x 12 mm Audi frontier stent was placed in the distal dominant right coronary extending into the ostial proximal posterior lateral branch. Both stents were lined up at the proximal marker and deployed at 18 jovan. The angiographic results were excellent with IZABELA-3 flow being present before and after the procedure. After achieving excellent angiograph results the apparatus was removed the sheath was removed hemostasis was achieved and TR banding patient was transferred the postop holding in stable condition ANGIOGRAPHIC RESULTS The left main artery Normal The left anterior descending artery Has a stent in the proximal to mid segment in which the proximal stent has mild tenderness percent in-stent restenosis while the midportion of the stent has 10 to 20% concentric in-stent restenosis. The remaining LAD is widely patent The circumflex artery Gives rise to a small to medium size ramus intermedius which has a proximal 50% stenosis and a mid vessel to distal 50% stenosis. The circumflex artery itself is small and has 40 to 50% stenosis in a small second obtuse marginal artery The right coronary artery Is a large dominant vessel and has a stent in the ostial and proximal segment which is widely patent. The midportion has an eccentric 90% eccentric in-stent restenotic lesion. The posterior lateral branch has mid vessel 60 and 70% stenoses. A large posterior descending artery has an ostial concentric 60% stenosis The DELAROSA ventriculogram reveals Not performed The left ventricular end-diastolic pressure Not measured IMPRESSION Critical disease in the mid dominant right coronary artery which extended into the posterior descending artery and posterolateral branch Successful stenting of the mid dominant right coronary critical disease reduced to less than 10% with 1 drug-eluting stent Successful double barrel stenting of the distal dominant right coronary artery with stents extending from the dominant right coronary into the proximal posterior descending artery and proximal posterolateral ventricular branch PLAN 1. Du
[2023-01-21 09:53] LABS: Basophils % 0.6 % (0.1-2.0); Eosinophils # 0.2 K/mm3 (0.0-0.4); Eosinophils % 2.7 % (0.1-12.0); Hematocrit 38.4 % (37.0-47.0); Hemoglobin 13.4 g/dL (12.2-16.2); Lymphocytes # 0.8 K/mm3 (0.7-4.5); Lymphocytes % 13.7 % (10-50); Mean Corpuscular Hemoglobin 31.5 pg (27.0-31.2); Mean Corpuscular Volume 89.9 fl (81-99); Mean Platelet Volume 7.6 fl (7.4-10.4); Monocytes # 0.5 K/mm3 (0.1-1.0); Monocytes % 7.9 % (1.7-9.3); Neutrophils # 4.3 K/mm3 (1.8-7.8); Neutrophils % 75.1 % (37.0-80.0); Platelet Count 224 K/mm3 (142-424); Red Blood Count 4.27 M/mm3 (4.20-5.40); White Blood Count 5.8 K/mm3 (4.8-10.8)
[2023-01-21 10:08] LABS: Anion Gap 14.1 mEq/L (5-15); Blood Urea Nitrogen 21 mg/dl (7-17); Calcium 9.3 mg/dl (8.4-10.2); Carbon Dioxide 26 mmol/L (22.0-30.0); Chloride 108 mmol/L (98-107); Creatinine Clearance Estimated 103 mL/min (50-200); Estimated Glomerular Filt Rate 75 ml/min (>60); GFR (African American) 91 ML/MIN (>60); Glucose 105 mg/dl (74-100); Potassium 4.1 mmoL/L (3.5-5.1); Sodium 144 mmol/L (136-145)
== END 2023-01-21 15:25 | disposition home or self-care (01) ==
PROVIDERS: PCP Emergency Medicine; Visit Provider Internal Medicine
DX: I25.118 Atherosclerotic heart disease of native coronary artery with other forms of angina pectoris (principal); R94.39 Abnormal result of other cardiovascular function study; T82.855A Stenosis of coronary artery stent, initial encounter; Z79.899 Other long term (current) drug therapy; Z95.1 Presence of aortocoronary bypass graft; I50.21 Acute systolic (congestive) heart failure; I11.0 Hypertensive heart disease with heart failure; I25.5 Ischemic cardiomyopathy
CPT/HCPCS: 80048; 85025; 92928; 92929; 93455; 99152; 99153; C1725; C1769; C1874; C1876; C9600; C9601; J1644; Q9967

== ENCOUNTER → 2023-03-14 16:36 | Outpatient (CLI) | payer OTHER, SELFPAY ==
[2023-03-14 15:58] LABS: Amphetamine/Metha Screen,Urine Positive ng/ml (<1000); Barbiturates Screen,Urine Negative ng/ml (<200); Benzodiazepines Screen,Urine Negative ng/ml (<200); Cannabinoid Screen,Urine Negative ng/ml (<50); Cocaine Screen,Urine Negative ng/ml (<300); Methadone Screen,Urine Negative ng/ml (<300)
[2023-03-14 15:59] LABS: Microalbumin < 6.000 mg/L (0-16.7); Opiate Screen,Urine Negative ng/ml (<300)
[2023-03-14 16:00] LABS: Phencyclidine Screen,Urine Negative ng/ml (<25)
[2023-03-14 16:12] LABS: Creatinine,Urine Random 63 mg/dL (Not Estab.)
[2023-03-20 21:07] LABS: Amphetamine Positive (.); Amphetamine (GC/MS) >3000 ng/mL (Cutoff=500); Amphetamines Positive (.); Methamphetamine Negative (Cutoff=500)
== END ==
LOC: LAB.DROPOF 16:36
PROVIDERS: PCP Internal Medicine; Visit Provider Internal Medicine
DX: Z79.899 Other long term (current) drug therapy (principal); F90.9 Attention-deficit hyperactivity disorder, unspecified type
CPT/HCPCS: 80307; 80324; 82043; 82570

== ENCOUNTER 2023-04-09 14:12 | Outpatient (CLI) | payer OTHER, SELFPAY ==
--- NOTE | 2023-04-09 14:13 | MM_ITS ---
PROCEDURE INFORMATION: Exam: Bilateral Screening 3D Mammography Exam date and time: 04/09/2023 2:00 PM Age: 52 years old Clinical indication: Screening examination; Additional info: Screening for breast cancer TECHNIQUE: Imaging protocol: Bilateral Screening tomosynthesis and 2D mammography including computer-aided detection (CAD) when performed. COMPARISON: [facility] DIG MAMM-SCREEN DAVID 12/08/2015 9:46 AM FINDINGS: MAMMOGRAPHY: Breast composition: The breasts are heterogeneously dense, which may obscure small masses. Mass: No suspicious masses. Architectural distortion: No suspicious distortion. Calcifications: No suspicious calcifications. Asymmetric density: None. Skin thickening: None. Axillary adenopathy: None. IMPRESSION: No mammographic evidence of malignancy. Annual screening is recommended unless otherwise clinically indicated. ASSESSMENT: BI-RADS Category 1: Negative
== END 2023-04-09 23:59 ==
LOC: RAD 14:13
PROVIDERS: PCP Internal Medicine; Visit Provider Internal Medicine
DX: Z12.31 Encounter for screening mammogram for malignant neoplasm of breast (principal)
CPT/HCPCS: 77063; 77067

== ENCOUNTER 2023-05-08 22:24 | Outpatient (CLI) | payer OTHER, SELFPAY ==
[2023-05-08 18:34] LABS: Coronavirus 19, PCR Not Detected (NotDetected); Influenza A, PCR Not Detected (NotDetected); Influenza B, PCR Not Detected (NotDetected)
[2023-05-08 19:29] LABS: 25-OH Vitamin D, Total 29.9 ng/mL (30-100)
== END 2023-05-08 23:59 ==
LOC: LAB.DROPOF 22:24
PROVIDERS: PCP Internal Medicine; Visit Provider Internal Medicine
DX: R06.02 Shortness of breath (principal); E55.9 Vitamin D deficiency, unspecified; Z83.3 Family history of diabetes mellitus; Z79.899 Other long term (current) drug therapy
CPT/HCPCS: 82306; 83036; 87636

== ENCOUNTER 2023-12-01 08:42 | Emergency (ER) | payer OTHER, SELFPAY ==
[2023-12-01] VITALS (7 sets, daily range): BP systolic 140–163; BP diastolic 85–95; PULSE 76–87; RESP 13–21; TEMP 36.7; O2SAT 95–99; BMI 29.9
--- NOTE | 2023-12-01 08:39 | ECG_ITS ---
APPROVED REPORT Exam: Resting ECG HR:80 bpm ECG Measurements Heart Rate 80 AXES WY 166 P 41 QRSd 93 QRS 16 QT 360 T 61 QTc 396 Conclusion SINUS RHYTHM LOW QRS VOLTAGE IN PRECORDIAL LEADS [QRS DEFLECTION < 1.0 mV IN CHEST LEADS] POSSIBLE ANTERIOR MYOCARDIAL INFARCTION , OF INDETERMINATE AGE [30 ms Q WAVE IN V3/V4, OR R < 0.2 mV IN V4] ABNORMAL ECG UNCONFIRMED REPORT Electronically signed by : DAVID TAVARES, 12/02/2023 04:28:28
--- NOTE | 2023-12-01 08:41 | XR_ITS ---
PROCEDURE INFORMATION: Exam: XR Chest Exam date and time: 12/01/2023 9:44 AM Age: 53 years old Clinical indication: Pain; Chest pressure; Prior surgery; Surgery date: 6+ months; Surgery type: Stents last ; Additional info: Chest pain TECHNIQUE: Imaging protocol: Radiologic exam of the chest. Views: 1 view. COMPARISON: CT ANGIO CHEST PE PROTOCOL 09/10/2022 11:11 PM FINDINGS: Lungs: Unremarkable. No consolidation. Pleural spaces: Unremarkable. No pleural effusion. No pneumothorax. Heart/Mediastinum: Unremarkable. No cardiomegaly. Bones/joints: Unremarkable. IMPRESSION: No acute findings.
[2023-12-01] MEDS: KETOROLAC 30MG/ML VIAL 15 MG IV (08:52)
[2023-12-01 09:01] LABS: Alanine Aminotransferase 29 U/L (12-78); Albumin Level 3.7 g/dl (3.5-5.0); Albumin/Globulin Ratio 1.1 (1.1-1.8); Alkaline Phosphatase 92 U/L (38-126); Anion Gap 4.7 mEq/L (5-15); Aspartate Amino Transferase 34 U/L (14-36); Bilirubin,Total 0.4 mg/dl (0.2-1.3); Blood Urea Nitrogen 11 mg/dl (7-17); Calcium 8.7 mg/dl (8.4-10.2); Carbon Dioxide 30 mmol/L (22.0-30.0); Chloride 108 mmol/L (98-107); Creatinine Clearance Estimated 104 mL/min (50-200); Estimated Glomerular Filt Rate 75 ml/min (>60); GFR (African American) 90 ML/MIN (>60); Globulin 3.3 g/dL (1.3-3.2); Glucose 137 mg/dl (74-100); Potassium 3.7 mmoL/L (3.5-5.1); Sodium 139 mmol/L (136-145)
--- NOTE | 2023-12-01 09:15 | [facility].EDCP ---
Discharge Plan Disposition Patient Disposition: Home, Self-Care Condition: Good Chief Complaint: Chest Pain Prescriptions Prescriptions: No Action pantoprazole 40 mg tablet,delayed release (DR/EC) 40 mg PO HS aspirin 81 mg tablet,delayed release (DR/EC) 81 mg PO DAILY 30 Days Qty: 30 0RF bupropion HCl 150 mg tablet sustained-release 12 hr See Rx Instructions .ROUTE .COMPLEX Qty: 180 0RF Dose Instruction: TAKE ONE TABLET BY MOUTH 2 TIMES A DAY Rx Instructions: TAKE ONE TABLET BY MOUTH 2 TIMES A DAY atorvastatin 80 mg tablet See Rx Instructions .ROUTE .COMPLEX Qty: 90 0RF Dose Instruction: TAKE ONE TABLET BY MOUTH AT BEDTIME Rx Instructions: TAKE ONE TABLET BY MOUTH AT BEDTIME carvedilol 25 mg tablet See Rx Instructions .ROUTE .COMPLEX Qty: 180 0RF Dose Instruction: TAKE ONE TABLET BY MOUTH 2 TIMES A DAY WITH MEALS Rx Instructions: TAKE ONE TABLET BY MOUTH 2 TIMES A DAY WITH MEALS cholecalciferol (vitamin D3) 125 mcg (5,000 unit) capsule 125 mcg PO DAILY 90 Days Qty: 90 0RF clopidogrel [Plavix] 75 mg tablet 75 mg PO DAILY Qty: 90 0RF dicyclomine 10 mg capsule 10 mg PO TIDP PRN (Reason: Abdominal Pain) Qty: 90 0RF valsartan 160 mg tablet See Rx Instructions .ROUTE .COMPLEX Qty: 180 0RF Dose Instruction: TAKE ONE TABLET BY MOUTH 2 TIMES A DAY Rx Instructions: TAKE ONE TABLET BY MOUTH 2 TIMES A DAY Referrals Follow up/Referrals: Provider,Referral, MD [Referring] - See instructions Clinical Impressions Clinical Impression: Chest pain, Musculoskeletal arm pain, Low back pain Instructions Patient Instructions: DI for Atypical Chest Pain Print Language Print Language: Slovak Discharge ED Provider: Brandon Luz HPI General Chief Complaint: Chest Pain Stated Complaint: Chest Pain Time Seen by Provider: 12/01/23 08:50 Mode of Arrival: EMS Source of Information: Patient Limitations: No Limitations Description of Symptoms (Recalled from ER Triage Doc. by RN): pt presents to ED with c/o n/v ongoing for two days. pt reports chest pain began this am approx 0200. pt reports pain radiating to left arm. pt does seen cardiology clinic at hospital. History of Present Illness HPI narrative: 53yoF patient presents via EMS due to reported chest pain, left arm pain and low back pain that started after two days vomiting. She reports a history of two heart attacks and expresses concern about her current symptoms. The chest pain began last night and is mainly localized in the left arm, with some radiation into the anterior chest. The patient describes the sensation as itchy and mentions shortness of breath. She denies any injury to the arm. The patient also complains of low back pain, describing it as hurting all over, particularly in the lower back region. The back pain does not correlate with the chest pain. In addition to the pain, the patient has been experiencing nausea for the past couple of days but has not taken any medication for it prior to zofran given by EMS. She denies any recent illness in her household, except for her mother who had a stomach virus last week. The patient denies any cough, diarrhea, or urinary problems such as burning or blood in the urine. She reports that touching her arm kind of feels good. indicating that it helps the pain. The patient expresses difficulty in articulating her symptoms, stating I couldn't get words to tell you. Related Data Home Medications ?Medication ?Instructions ?Recorded ?Confirmed pantoprazole 40 mg tablet,delayed 40 mg PO HS acid reflux 02/02/22 11/04/23 release Previous Rx's ?Medication ?Instructions ?Recorded aspirin 81 mg tablet,delayed 81 mg PO DAILY 30 days #30 tabs 04/16/22 release atorvastatin 80 mg tablet See Rx Instructions .Route 10/31/23 .COMPLEX #90 tabs bupropion HCl 150 mg tablet,12 hr See Rx Instructions .Route 10/31/23 sustained-release .COMPLEX #180 tabs carvedilol 25 mg tablet See Rx Instructions .Route 10/31/23 .COMPLEX #180 tabs cholecalciferol (vitamin D3) 125 125 mcg PO DAILY 90 days #90 caps 10/31/23 mcg (5,000 unit) capsule clopidogrel 75 mg tablet (Plavix) 75 mg PO DAILY #90 tabs 10/31/23 dicyclomine 10 mg capsule 10 mg PO TIDP PRN Abdominal Pain 10/31/23 #90 caps valsartan 160 mg tablet See Rx Instructions .Route 10/31/23 .COMPLEX #180 tabs Allergies Allergy/AdvReac Type Severity Reaction Status Date / Time Penicillins [PENICILLINS] Allergy Intermediate I-HIVES Verified 11/04/23 14:54 lisinopril AdvReac Intermediate Cough Verified 11/04/23 14:54 PFSH [facility] Disclaimer: The information contained in this section may have been updated after the patient was seen, as this information can be updated by other users. Medical History Angina pectoris Fatigue Angina pectoris Uses wearable garment containing external defibrillator with attached monitor Coronary artery disease LV dysfunction Acute systolic (congestive) heart failure Ischemic cardiomyopathy Tobacco user Hyperlipidemia Last lipid panel was done in October 2022. Triglycerides 149 cholesterol 127 LDL 54 and HDL 48. Continue with the current therapies as this panel appears to be excellent. She is to continue the atorvastatin at maximal 80 mg dose. Primary hypertension Blood pressure today was a little elevated at 140/76, her value in April on the sixth was 124/81. We like to see these pressures obviously less than 130/80. She is to continue the carvedilol spironolactone and valsartan. Her microalbumin was less than 6 in February. CAD (coronary artery disease) of artery bypass graft Following with cardiology please see above STEMI (ST elevation myocardial infarction) Social History Smoking Status: Never smoker alcohol intake: never substance use type: former substance user current occupational status: employed Travel in the last 8 weeks: Inside the [place] household members: friend(s) housing: apartment caffeine: Yes ROS Obtained: Yes Systems reviewed as appropriate & no additional complaints except as documented Physical Exam General General appearance: alert and in no apparent distress Head Head exam: atraumatic and normocephalic Eye Eye exam: Present normal appearance and EOMI ENT ENT exam: Present normal exam Neck Neck exam: Present normal inspection Chest Chest inspection: Present normal inspection and symmetric chest wall rise Respiratory Respiratory exam: Present normal lung sounds bilaterally; Absent respiratory distress Cardiovascular Cardiovascular exam: Present regular rate, normal rhythm and normal heart sounds Abdominal Exam Abdominal exam: Present soft and normal bowel sounds; Absent distention or tenderness Extremities Exam Extremities exam: Present normal inspection and full ROM; Absent tenderness Back Exam Back exam: Present normal inspection Neurological Exam Neurological exam: Present alert and oriented X3 Psychiatric Psychiatric exam: Present normal affect and normal mood Skin Skin exam: Present warm, dry, intact and normal color; Absent rash HEART Score HEART Score HEART Score assessment performed?: Yes History (anamnesis): Moderately suspicious ECG: Normal Age: 45-65 years Risk factors: 1-2 risk factors Troponin: </= normal limit HEART Score: 3 Critical Care Critical Care Time Critical Care Time: No Medical Decision Making Medical Records Medical records reviewed: Yes I reviewed the patient's medical records. Qamar Inquiry Pt receiving controlled substance: No Vital Signs Vital Signs: 12/01/23 08:42 12/01/23 09:00 12/01/23 09:30 Temperature 98.1 F Temperature Source Oral Pulse Rate 76 87 Pulse Rate [Left Radial] 84 Respiratory Rate 13 21 16 Blood Pressure 163/95 H 140/89 Blood Pressure [Right Arm] 162/85 H Blood Pressure Mean [Right Arm] 110 02 Sat by Pulse Oximetry 98 98 95 Oxygen Delivery Method Room Air Room Air Room Air 12/01/23 10:00 12/01/23 10:30 12/01/23 11:00 Temperature Temperature Source Pulse Rate 76 83 78 Pulse Rate [Left Radial] Respiratory Rate 15 17 16 Blood Pressure 150/94 H 147/87 H 163/93 H Blood Pressure [Right Arm] Blood Pressure Mean [Right Arm] 02 Sat by Pulse Oximetry 97 98 99 Oxygen Delivery Method Room Air Room Air Room Air Lab Data Labs: Lab Results 12/01/23 08:44: WBC 5.4, RBC 4.08 L, Hgb 12.1 L, Hct 38.3, MCV 93.8, MCH 29.6, MCHC 31.5 L, RDW 14.9, Plt Count 251, MPV 7.6, Neut % (Auto) 74.7, Lymph % (Auto) 14.7, [place] % (Auto) 6.5, Eos % (Auto) 3.3, Baso % (Auto) 0.7, Neut # (Auto) 4.0, Lymph # (Auto) 0.8, [place] # (Auto) 0.4, Eos # (Auto) 0.2, Baso # (Auto) 0.0, Sodium 139, Potassium 3.7, Chloride 108 H, Carbon Dioxide 30, Anion Gap 4.7 L, BUN 11, Creatinine 0.80, Estimated Creat Clear 104, Estimated GFR 75, Est GFR ( Amer) 90, Glucose 137 H, Calcium 8.7, Total Bilirubin 0.4, AST 34, ALT 29, Alkaline Phosphatase 92, Troponin I < 0.01, Total Protein 7.0, Albumin 3.7, Globulin 3.3 H, Albumin/Globulin Ratio 1.1 12/01/23 08:44 12/01/23 08:44 Response Orders (Tests/Meds): ED MEDICATIONS Discontinued Medications Generic Name Dose Route Start Last Admin Trade Name Tanesha PRN Reason Stop Dose Admin Ketorolac Tromethamine 15 mg 12/01/23 08:47 12/01/23 08:52 Ketorolac 30mg/Ml Vial IV 12/01/23 08:48 15 mg ONCE ONE Administration ORDERS Category Date Time Status CXR --portable [XR chest portable] Stat Exams 12/01/23 08:41 Completed Complete Blood Count Auto Diff Stat Lab 12/01/23 08:44 Completed Comprehensive Metabolic Panel Stat Lab 12/01/23 08:44 Completed Troponin I Stat Lab 12/01/23 08:44 Completed ECG Data Tracing #1: Attestation: I reviewed this ECG and interpreted as documented below: ECG Narrative: Normal sinus rhythm, normal axis, normal intervals, no noted ST elevation ECG initial impression date: 12/01/23 ECG initial impression time: 08:39 MDM Narrative Medical Decision Narrative: Patient with history and exam per above presenting for evaluation of chest pain, low back pain, left arm pain in setting of history of prior VT. Patient hemodynamically stable, no acute distress upon arrival. Diagnoses considered include ACS, musculoskeletal pain, viral syndrome. Low risk Wells score however PE was considered. Gastritis, Kanika-Li tear ED workup and treatment included: As above Labs were independently interpreted by me, significant for CMP, CBC grossly nonactionable, negative troponin, reassuring laboratory workup. Imaging was independently visualized and interpreted by me, significant for no acute cardiopulmonary process, no noted findings consistent with esophageal perforation, no pneumothorax Please refer to radiology report for full details. My clinical impression at this time is most consistent with viral syndrome. Patient has good follow-up with primary care physician. Given instructions to return to ED if symptoms worsen. Medically clear for discharge home at this time. Patient agreeable with this plan. Discharged home with hemodynamically stable vitals. I discussed my clinical impression with patient and answered all questions. At this time, the evidence for any other entities in the differential is insufficient to warrant any further testing or ED observation. This was explained to the patient. The patient was advised that persistent or worsening symptoms require further evaluation.
[2023-12-01 09:20] LABS: Troponin I < 0.01 ng/ml (0.00-0.034)
[2023-12-01 09:22] LABS: Basophils % 0.7 % (0.1-2.0); Eosinophils # 0.2 K/mm3 (0.0-0.4); Eosinophils % 3.3 % (0.1-12.0); Hematocrit 38.3 % (37.0-47.0); Hemoglobin 12.1 g/dL (12.2-16.2); Lymphocytes # 0.8 K/mm3 (0.7-4.5); Lymphocytes % 14.7 % (10-50); Mean Corpuscular HGB Conc 31.5 g/dL (31.8-35.4); Mean Corpuscular Hemoglobin 29.6 pg (27.0-31.2); Mean Corpuscular Volume 93.8 fl (81-99); Mean Platelet Volume 7.6 fl (7.4-10.4); Monocytes # 0.4 K/mm3 (0.1-1.0); Monocytes % 6.5 % (1.7-9.3); Neutrophils % 74.7 % (37.0-80.0); Platelet Count 251 K/mm3 (142-424); Red Blood Count 4.08 M/mm3 (4.20-5.40); Red Cell Distribution Width 14.9 % (11.5-17.5); White Blood Count 5.4 K/mm3 (4.8-10.8)
--- NOTE | 2023-12-01 10:14 | PC.NURSE ---
Rounded on pt. No needs voiced at this time. Call light remains within reach.
== END 2023-12-01 11:51 | disposition home or self-care (01) ==
PROVIDERS: Emergency Provider Student in an Organized Health Care Education/Training Program; PCP Internal Medicine
DX: R07.9 Chest pain, unspecified (principal); M79.602 Pain in left arm; M54.50 Low back pain, unspecified; I10 Essential (primary) hypertension; E78.5 Hyperlipidemia, unspecified; Z86.79 Personal history of other diseases of the circulatory system
CPT/HCPCS: 71045; 80053; 84484; 85025; 93005; 96374; 99284; J1885

== ENCOUNTER 2024-07-14 14:28 | Outpatient (CLI) | payer OTHER, SELFPAY ==
[2024-07-14 15:15] LABS: Chloride 104 mmol/L (98-107); Potassium 4.3 mmoL/L (3.5-5.1); Sodium 140 mmol/L (136-145)
[2024-07-14 15:18] LABS: Blood Urea Nitrogen 24 mg/dl (7-17); Estimated Glomerular Filt Rate 52 ml/min (>60); GFR (African American) 62 ML/MIN (>60)
[2024-07-14 15:19] LABS: Anion Gap 14.3 mEq/L (5-15); Calcium 10.2 mg/dl (8.4-10.2); Carbon Dioxide 26 mmol/L (22.0-30.0); Glucose 162 mg/dl (74-100)
== END 2024-07-14 23:59 | disposition home or self-care (01) ==
LOC: LAB 14:29
PROVIDERS: PCP Physician Assistant; Visit Provider Physician Assistant
DX: R42 Dizziness and giddiness (principal); R06.09 Other forms of dyspnea; R07.89 Other chest pain; I10 Essential (primary) hypertension; I25.810 Atherosclerosis of coronary artery bypass graft(s) without angina pectoris; I25.10 Atherosclerotic heart disease of native coronary artery without angina pectoris
CPT/HCPCS: 36415; 80048

== ENCOUNTER 2024-12-29 21:19 | Emergency (ER) | payer OTHER, SELFPAY ==
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
--- OUTSIDE RECORDS SUMMARY | 2024-11-23 08:11 | XMS_ITS | Encounter Summary ---
Author Organization [facility] Address [address] [place] [address] Care Team Providers Care Head Usher Name Role Phone Ramirez Greer MD Unavailable [phone] Eladio Kaur MD Unavailable [phone] Wesley Araujo MD Unavailable [phone] Nikki Almeida Primary Care Provider [phone] Reason for Referral * Imaging (Routine) - Closed Specialty Diagnoses / Procedures Referred By Patricia dawson Referred To Contact Gastroenterology Diagnoses Proctitis, radiation History of rectal or anal cancer BRBPR (bright red blood per rectum) Procedures Colonoscopy Shaneka Hale PA [address] [address] Phone: tel: fax: Referral ID Status Reason Start Date Expiration Date V isits Requested Visits Authorized [id number] Closed Specialty Services Required 10/08/2024 04/09/2026 1 1 Reason for Visit * Imaging (Routine) - Closed Specialty Diagnoses / Procedures Referred By Contmei t Referred To Contact Gastroenterology Diagnoses Proctitis, radiation History of rectal or anal cancer BRBPR (bright red blood per rectum) Procedures Colonoscopy Shaneka Hale PA [id number] [place] [address] Phone: tel: fax: Referral ID Status Reason Start Date Expiration Date V isits Requested Visits Authorized [id number] Closed Specialty Services Required 10/08/2024 04/09/2026 1 1 Encounter Details Date Type Department Care Team (Latest Contact Info) Description 11/23/2024 8:11 AM EDT - 11/23/2024 11:59 PM EDT Hospital Encounter [facility] [address] [place] [address] Ramirez Greer MD [address] [place] [address] Shirley Schuler RN Proctitis, radiation; History of rectal or anal cancer; BRBPR (bright red blood per rectum) Discharge Disposition: Home or Self Care Social History Tobacco Use Types Packs/Day Years [...] 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 Start 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 Not on file Not on file Not on file documented as of this encounter Last Filed Vital Signs Vital Sign Reading Time Taken Comments Blood Pressure 117/80 11/23/2024 10:40 AM EDT 400 CC LR BOLUS COMPLETE Pulse 81 11/23/2024 10:40 AM EDT Temperature 36.8 C (98.3 F) 11/23/2024 10:04 AM EDT Respiratory Rate 22 11/23/2024 10:4 0 AM EDT Oxygen Saturation 99% 11/23/2024 10: 40 AM EDT Inhaled Oxygen Concentration - - Weight 85.2 kg (187 lb 13.3 oz) 11/23/2024 8:35 AM EDT Height 165.1 cm (5' 5 ) 11/23/2024 8:35 AM EDT Body Mass Index 31.26 11/23/2024 8:35 AM EDT documented in this encounter Medications at Time of Discharge Aspirin Low Dose 81 MG EC tablet Take 1 tablet by mouth daily. 2 atorvastatin (Lipitor) 10 MG tablet Take 1 tablet by mouth nightly. 5 buPROPion SR (Wellbutrin SR) 150 MG 12 hr tablet Take 1 tablet by mouth 2 times a day. 3 carvedilol (Coreg) 25 MG tablet Take 1 tablet by mouth daily. 3 clopidogrel (Plavix) 75 MG tablet Take by mouth 1 (one) time each day. dicyclomine (Bentyl) 10 MG capsuleIndications: Lower abdominal pain Take 1 capsule by mouth 3 times a day as needed (abd cramping). 90 capsule 5 5 ergocalciferol 1.25 MG (30765 UT) capsule Take 1 capsule by mouth daily. 3 famotidine (Pepcid) 40 MG tabletIndications:G astroesophageal reflux disease with esophagitis without hemorrhage Take 1 tablet by mouth 2 times a day as needed for heartburn. 180 tablet 3 5 hydroCHLOROthiazide (HYDRODiuril) 25 MG tablet 5 ondansetron (Zofran) 4 MG tabletIndications:N ausea and vomiting, unspecified vomiting type Take 1 tablet (4 mg) by mouth every 8 (eight) hours if needed for nausea or vomiting. 20 tablet 4 ondansetron ODT (Zofran-ODT) 8 MG disintegrating tablet DISSOLVE 1 TABLET ON THE TONGUE 3 TIMES A DAY NEEDED FOR NAUSEA AND VOMITING 5 pantoprazole (Protonix) 40 MG EC tabletIndications:G astroesophageal reflux disease with esophagitis without hemorrhage Take 1 tablet by mouth 2 times a day before meals. Do not crush, chew, or split. 60 tablet 5 5 semaglutide (Ozempic, 0.25 or 0.5 MG/DOSE,) 2 MG/1.5ML solution pen-injector inj. pen Inject 0.375 mL under the skin 1 time per week. spironolactone (Aldactone) 25 MG tablet Take 1 tablet by mouth 2 times a day. 3 valsartan (Diovan) 160 MG tablet 2 (two) times a day. 3 Vitamin D3 1.25 MG (68215 UT) capsule Take 1 capsule (50,000 Units) by mouth 1 (one) time per week. 2 Vitamin D3 125 MCG (5000 UT) capsule Take by mouth 1 (one) time each day. 4 mesalamine (Canasa) 1000 MG suppositoryIndicati ons:Proctitis, radiation Insert 1 suppository into the rectum 2 times a day for 30 days, THEN 1 suppository nightly. Use as directed. 90 suppository 5 5 12/10/19 25 documented as of this encounter Miscellaneous Notes * Ruth Sharp RN - 11/23/2024 9:08 AM EDT Images from the original note were not included. [id number] Recovery After Procedural Sedation (Adult) You have been given medicine by vein to make you sleep during your procedure. This may have included both a pain medicine and sleeping medicine. You may have side effects, such as nausea, fatigue, orunsteadiness for up to 24 hours. You may also feel lightheaded. Some medical conditions, such as seizure disorders, spinal cord injuries, and some metabolic conditions, may change what your care needs are. If you have a medical condition, talk with your doctor about whether your care after the procedure might change. Home care Follow these guidelines when you get home: ? For the next 8 or more hours, ask a trusted adult to watch over you. This person should make sureyour condition is not getting worse, watch for problems, and keep you safe. ? Don't drink any alcohol for the next 24 hours. ? Don't drive, operate dangerous machinery, or make important business or personal decisions duringthe next 24 hours. ? Take extra care when walking and moving, You may be at a higher risk of falling. ? Follow any instructions you were given for eating and drinking. ? Be sure to follow all after-care directions. Note: Your doctor may tell you not to take any medicine by mouth for pain or sleep in the next 4 hours. These medicines may react with the medicines you were given in the hospital. This could cause amuch stronger response than usual. Follow-up care Follow up with your doctor as advised. When to contact your doctor Have someone contact your doctor or seek medical care right away if: ? Your drowsiness gets worse. ? Your weakness or dizziness gets worse. ? You have repeated vomiting. ? Your speech is slurred, and others can't understand you. ? You have severe or ongoing pain from the procedure that's not eased by the pain medicine (if prescribed). ? You have a fever. ? You have a new rash. Call 911 Have someone call 911 if: ? You have trouble breathing. ? You have trouble swallowing. ? You have chest pain. ? You lose consciousness or you can't be awakened. Last Reviewed Date: 2023 00:00:00 ?? [id number] [employer]. All rights reserved. This information is not intended as a substitute for professional medical care. Always follow your healthcare professional's instructions. * Shasha OnJEANA - Ruth Navarrete RN - 11/23/2024 9:08 AM EDT Images from the original note were not included. [id number] Endoscopy Unit: Caring for Yourself after a Colonoscopy What precautions do I need to take after my procedure? You will get a medicine that makes you sleep during treatment. It may affect you for the next 24 hours. ? Do not drive or go home alone. Someone must be with you until you get home. ? For 24 hours, do not make legal decisions, drive, or use dangerous equipment. ? You may continue taking your home medicines, unless your doctor tells you otherwise. When can I eat or drink? You may eat as you normally would. Start with a small amount of bland foods. Add other foods as tolerated. Spicy or greasy foods may cause nausea. How active can I be? You should move around as you are able. Do your normal activities if you feel you can. Sexual activity is fine, unless your doctor tells you otherwise. How do I find out my biopsy results? If you had a biopsy, it may take 7-10 days for results. These results will be available in the patient portal, [employer]. Or you can call the doctor who ordered your procedure. What should I watch out for? ? Gas: You may get air in your belly during treatment. This could cause gas or a feeling of fullness. This is normal. If you have hemorrhoids, you may have some rectal discomfort. ? Blood: Please call if you have a polyp removed during your procedure and see 1 tablespoon or moreof blood on your stool. Keep checking this for 1 month after your procedure. When should I call the doctor? Call 911 right away or go to the nearest emergency department if you have any of these: ? Difficulty breathing ? Severe pain in the throat ? Severe pain in the chest or belly ? Vomiting that does not go away ? Fever of 101??F or higher ? More than 1 tablespoon of rectal bleeding ? Redness or tenderness of the IV site that lasts longer than 48 hours ? Any other symptoms that concern you These may be related to a complication and need medical attention. If you do not tell your doctor, the problem may get worse. Our contact information: For the Endoscopy Provider, call and ask for the Endoscopy Fellow on-call. * H&P - Sujata Merida DO - 11/23/2024 8:30 AM EDT Images from the original note were not included. Subjective History Of Present Illness Viktoriya Hoang is a 54 y.o. female with hx of anal SCC s/p chemoradiation therapy who presents for surveillance colonoscopy. She tolerated bowel prep without issue. Last dose of Plavix > 48hrs ago, active ASA use. Last dose of Ozempic 1 week ago. Medical/Surgical/Social/Family History I have reviewed and updated the patient history. Travel History Relevant International Travel History: Travel Screening Question Response Have you been in contact with someone who was sick? No / Unsure Do you have any of the following new or worsening symptoms? None of these Have you traveled internationally or domestically in the last month? No Travel History Travel since 10/23/24 No documented travel since 10/23/24 Relevant Domestic Travel History: N/A Immunizations Reviewed Allergies Lisinopril and Penicillins Medications Current Medications[1] Objective Review of Systems 14pt ROS reviewed and negative except for that included in HPI Physical Exam Vitals and nursing note reviewed. Constitutional: General: She is not in acute distress. Appearance: Normal appearance. She is not ill-appearing. HENT: Head: Normocephalic and atraumatic. Nose: Nose normal. Mouth/Throat: Mouth: Mucous membranes are moist. Eyes: Extraocular Movements: Extraocular movements intact. Pupils: Pupils are equal, round, and reactive to light. Cardiovascular: Rate and Rhythm: Normal rate. Pulmonary: Effort: Pulmonary effort is normal. No respiratory distress. Abdominal: General: There is no distension. Palpations: Abdomen is soft. Tenderness: There is no abdominal tenderness. Skin: General: Skin is warm. Capillary Refill: Capillary refill takes less than 2 seconds. Neurological: General: No focal deficit present. Mental Status: She is alert and oriented to person, place, and time. Psychiatric: Mood and Affect: Mood normal. Behavior: Behavior normal. Last Recorded Vitals Blood pressure 100/69, pulse 92, temperature 36.5 ??C (97.7 ??F), temperature source Temporal, resp. rate 20, height 1.651 m (5' 5 ), weight 85.2 kg (187 lb 13.3 oz), SpO2 98%. Results Review I have reviewed the latest lab and imaging results. Assessment & Plan Proctitis, radiation History of rectal or anal cancer BRBPR (bright red blood per rectum) Plan for procedure reviewed. Risks/benefit/alternatives discussed with the patient, and she is agreeable to proceed. Colonoscopy with Dr. Greer today. Sujata Merida DO Colon & Rectal Surgery Fellow [phone] [1] Current Outpatient Medications Medication Sig Dispense Refill Aspirin Low Dose 81 MG EC tablet Take 1 tablet (81 mg) by mouth 1 (one) time each day. atorvastatin (Lipitor) 10 MG tablet Take 1 tablet by mouth nightly. buPROPion SR (Wellbutrin SR) 150 MG 12 hr tablet Take 1 tablet (150 mg) by mouth 2 (two) times a day. carvedilol (Coreg) 25 MG tablet Take 1 tablet (25 mg) by mouth 1 (one) time each day. clopidogrel (Plavix) 75 MG tablet Take by mouth 1 (one) time each day. dicyclomine (Bentyl) 10 MG capsule Take 1 capsule by mouth 3 times a day as needed (abd cramping). 90 capsule 5 ergocalciferol 1.25 MG (48594 UT) capsule Take 1 capsule (50,000 Units) by mouth 1 (one) time each day. famotidine (Pepcid) 40 MG tablet Take 1 tablet by mouth 2 times a day as needed for heartburn. (Patient not taking: Reported on 11/03/2024) 180 tablet 3 hydroCHLOROthiazide (HYDRODiuril) 25 MG tablet mesalamine (Canasa) 1000 MG suppository Insert 1 suppository into the rectum 2 times a day for 30 days, THEN 1 suppository nightly. Use as directed. 90 suppository 5 ondansetron (Zofran) 4 MG tablet Take 1 tablet (4 mg) by mouth every 8 (eight) hours if needed for nausea or vomiting. 20 tablet 0 ondansetron ODT (Zofran-ODT) 8 MG disintegrating tablet DISSOLVE 1 TABLET ON THE TONGUE 3 TIMES A DAY NEEDED FOR NAUSEA AND VOMITING pantoprazole (Protonix) 40 MG EC tablet Take 1 tablet by mouth 2 times a day before meals. Do not crush, chew, or split. 60 tablet 5 semaglutide (Ozempic, 0.25 or 0.5 MG/DOSE,) 2 MG/1.5ML solution pen-injector inj. pen Inject 0.375 mL under the skin 1 time per week. spironolactone (Aldactone) 25 MG tablet Take 1 tablet (25 mg) by mouth 2 (two) times a day. valsartan (Diovan) 160 MG tablet 2 (two) times a day. Vitamin D3 1.25 MG (21359 UT) capsule Take 1 capsule (50,000 Units) by mouth 1 (one) time per week.(Patient not taking: Reported on 10/12/2024) Vitamin D3 125 MCG (5000 UT) capsule Take by mouth 1 (one) time each day. No current facility-administered medications for this encounter. Cosigned by Ramirez Greer MD at 11/23/2024 9:07 AM EDT Associated attestation - Ramirez Greer MD - 11/23/2024 9:07 AM EDT I saw and evaluated the patient with the resident/fellow. I discussed the case with the resident/fellow and agree with the findings and plan as documented. [facility] Colon and Rectal Surgery Endoscopy H&P Ms. Viktoriya Hoang is a 54 y.o. female that presents to [facility] for endoscopic evaluation. Past medical history and past surgical history are pertinent for the followin. Proctitis, radiation 2. History of rectal or anal cancer 3. BRBPR (bright red blood per rectum) Chest: CTAB. CV: RRR. Current plan: Colonoscopy. See above H&P. All risks, benefits, goals, and alternatives have been discussed with the patient. All questions have been answered. We have agreed to proceed with plan as above. documented in this encounter Plan of Treatment Upcoming Encounters Date Type Department Care Team (Late st Contact Info) Description 03/15/2025 10:00 AM EST Appointment [facility] Radiology [address] [place] [phone] 03/19/2025 1:40 PM EST Office Visit [facility] [address] [place] [address] Shaneka Hale PA [address] [place] [address] 06/21/2025 2:00 PM EDT Appointment [facility] Radiation [address] [place] [address] Eladio Kaur MD [address] [place] [phone] documented as of this encounter Procedures Procedure Name Priority Date/Time Associated Diagnosis Comments COLONOSCOPY Routine 11/23/2024 10:01 AM EDT Proctitis, radiation History of rectal or anal cancer BRBPR (bright red blood per rectum) POCT GLUCOSE METER UNSOLICITED RESULTS Routine 11/23/2024 8:34 AM EDT documented in this encounter Results * Colonoscopy (11/23/2024 10:01 AM EDT) Anatomical Region Laterality Modality Endoscopy Narrative 11/23/2024 10:15 AM EDT Table formatting from the original result was not included. Impression: Moderate atrophic mucosa with loss of vascular pattern in the rectosigmoid and rectum. Acute angulation of the sigmoid colon preventing safe passage of the colonoscope beyond 25 cm. Unexplained. Surveillance colonoscopy performed in the setting of prior history of anal cancer requiring chemoradiation. 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 Telangiectasias were present within the anal canal. No active bleeding. Approximately 20-25 cm from the anal verge, acute angulation was encountered that prevented safe passage of the endoscope beyond this area. This area was noted on colonoscopy 3 years prior yet at that time the endoscope could be advanced beyond the angulation safely. Most recent CT imaging noted in May 2024 without evidence of recurrence. It is suspected that the difficulty in advancing the scope beyond this level is not malignant in nature. Likely related to some degree of scarring within the pelvis. Recommend CT with rectal contrast. Otherwise, needs repeat flexible sigmoidoscopy in 1.5 years. Post Procedure Diagnosis None Recommendations Other Indication Order Indication: BRBPR (bright red blood per rectum), History of rectal or anal cancer, Proctitis, radiation Medications See anesthesia record for anesthesia administered medications. Staff Staff Role Shirley Schuler, SYLVESTER Endo Nurse Kamran Garcia Endo Mixing Technician Ramirez Greer MD Proceduralist Jose Nieves MD Anesthesiologist Karina Beard, Sujata Villanueva CRNA, DO Fellow Preprocedure A history and physical has been performed, and patient medication allergies have been reviewed. The patient's tolerance of previous anesthesia has been reviewed. The risks and benefits of the procedure and the sedation options and risks were discussed with the patient. All questions were answered and informed consent obtained. Details of the Procedure The patient underwent monitored anesthesia care, which was administered by an anesthesia professional. The patient's blood pressure, heart rate, level of consciousness, respirations and oxygen saturation were monitored throughout the procedure. A digital rectal exam was performed. A perianal exam was performed. The scope was introduced through the anus and advanced to the sigmoid colon. Insufflated with carbon dioxide. Retroflexion was performed in the rectum. The quality of bowel preparation was evaluated using the [place] Bowel Preparation Scale with scores of: right colon = not assessed, transverse colon = not assessed, left colon = not assessed. The patient experienced no blood loss. The procedure was not difficult. The patient tolerated the procedure well. There were no apparent adverse events. Attestation I personally performed the entire procedure Events Procedure Events Event Event Time ENDO SCOPE IN TIME 11/23/2024 9:49 AM ENDO SCOPE OUT TIME 11/23/2024 9:58 AM Specimens No specimens were documented in this log. Findings Moderate, generalized atrophic mucosa with loss of vascular pattern in the rectosigmoid and rectum; no bleeding was observed. Acute angulation of the sigmoid colon preventing safe passage of the colonoscope beyond 25 cm. Unexplained. Shaneka DOLL GI PROCEDURE ORDERABLES Final R esult * (ABNORMAL) POCT glucose meter (11/23/2024 8:34 AM EDT) POCT Glucose 120(H) 74 - 99 mg/dL 11/23/2024 8:39 AM EDT [facility] Comment:Accuracy of a glucos e result obtained from a capillary whole blood specimen relies upon adequate, non-compromised capillary blood flow. If the capillary glucose result is not consistent with the patient's clinical signs and symptoms, glucose testing should be repeated with either an arterial or venous sample on the glucometer or sent to the main labortory for testing. Comment 11/23/2024 8:39 AM EDT [facility] Senior Policy Analyst ID Aislinn Valentino 11/23/2024 8:39 AM EDT [facility] Device ID [id number] 11/23/2024 8:39 AM EDT [facility] Specimen Type POC Capillary 11/23/2024 8:39 AM EDT [facility] Blood Capillary blood specimen / Unknown 11/23/2024 8:34 AM EDT 11/23/2024 8:39 AM EDT Ramirez Greer MD LAB POINT OF CARE TE ST DOCKED DEVICE UNSOLICITED RESULTS Final Result [facility] [address] [place] [address] documented in this encounter Visit Diagnoses Diagnosis Proctitis, radiation Other specified disorder of rectum and anus History of rectal or anal cancer Personal history of malignant neoplasm of rectum, rectosigmoid junction, and anus BRBPR (bright red blood per rectum) Hemorrhage of rectum and anus documented in this encounter Additional Health Concerns Assessment Noted Time PHQ-9 Depression Total Score: 4 10/09/19 25 10:09 AM EDT A fall risk assessment has been complete d for the patient 11/03/2024 10:08 AM EDT A Body Mass Index follow-up plan has been documented for the patient 11/05/2024 3:40 PM EDT documented as of this encounter Care Teams Head Usher Relationship Specialty Start Date End Date Nikki Almeida PA [address] [place] [address] PCP - General 08/30/24 Ramirez Greer MD [address] [facility] [address] [place] [phone] Surgeon Colon and Rectal Surgery 01/31/21 Eladio Kaur MD [address] [place] [phone] Radiation Oncologist Radiation Oncology 02/15/21 Wesley Araujo MD [address] [phone] Fellow Hematology and Oncology 03/02/22 documented as of this encounter
--- OUTSIDE RECORDS SUMMARY | 2024-11-23 09:38 | XMS_ITS | Encounter Summary ---
Author Organization [facility] Address [address] [place] [address] Care Team Providers Care Coin Machine Operator Name Role Phone Ramirez Greer MD Unavailable [phone] Eladio Kaur MD Unavailable [phone] Wesley Araujo MD Unavailable [phone] Nikki Almeida Primary Care Provider [phone] Encounter Details Date Type Department Care Team (Late st Contact Info) Description 11/23/2024 9:38 AM EDT Anesthesia Event [facility] [address] [place] [address] Jose Frost MD [address] [place] [address] Anesthesia Record Procedure Summary Procedure Name Responsible Anesthesiologist Anesthesia Start Time Anesthesia Stop Time COLONOSCOPY Jose Frost MD 11/23/24 0938 1008 Events Date Time Event Comment 11/23/2024 0847 0938 An Start The patient was reevaluated immediately before sedation and remains eligible for anesthesia plan. 0938 In Room 0938 An Start Data 0943 Ronaldo Waiting for pro isrraelist 0945 An Induction The patient was reevaluated immediately before moderate or deep sedation use and before anesthesia induction. 0946 Anesthesia Ready 0949 Proc Start 0959 Proc Fin 1001 Out of Room 1008 Handoff to Receiving I compl eted my handoff to the receiving clinician during which we: 1. Identified the patient 2. Identified the responsible provider 3. Reviewed the pertinent medical history 4. Discussed the surgical course 5. Reviewed intra-op anesthesia management and issues during anesthesia 6. Set expectations for post-procedure period 7. Allowed opportunity for questions and acknowledgement of understanding. 1008 An Stop 1008 an stop data Meds Name Total propofol (Diprivan) injection 10 mg/mL 3 00 mg propofol (Diprivan) infusion 10 mg/mL 22 8.34 mg lactated Ringer's infusion 250 mL * Agents No agents on file. * Blood No blood administrations on file. Lines, Drains, and Airways Type Details Placement Removal Peripheral IV Placement Date: 11/09; Placement Time: 925; Catheter Size: 20 G; Orientation: Anterior, Distal, Right; Location: Wrist; Site Prep: Alcohol; Local Anesth: None; Technique: Anatomical landmarks; Inserted by: dr. 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 Anesthesia Post Evaluation Patient location during evaluation: PACU Patient participation: complete - patient participated Level of consciousness: awake Pain management: adequate (pain score 0-3) Airway patency: natural airway Cardiovascular status: acceptable and hemodynamically stable Respiratory status: acceptable, blow-by oxygen and nasal cannula Hydration status: acceptable Nausea/Vomiting: No No notable events documented. * Anesthesia Preprocedure Evaluation - Jose Frost MD - 11/23/2024 8:37 AM EDT No anesthesia staff entered. Patient: Viktoriya Hoang HPI Viktoriya Hoang is a 54 y.o. female with PMHx of rectal ca s/p chemoradiation, CAD s/p multiple stents, CHF, HTN, NAFLD, DM presents for colonoscopy Procedure Information Date/Time: 11/23/24 0830 Scheduled providers: Ramirez Greer MD Procedure: COLONOSCOPY Location: [facility] Relevant Problems Cardio (+) CHF (congestive heart failure) (CMS/HCC) (+) Hypertension (+) Myocardial infarction (CMS/HCC) GI (+) GERD (gastroesophageal reflux disease) (+) Obesity (+) Peptic ulceration (+) Squamous cell carcinoma of rectum /Renal (+) Hepatic steatosis Other (+) Arthritis ALLERGIES Allergies[1] NPO STATUS Past Medical History[2] AIRWAY HISTORY Airway Detailed Review Displaying the 20 most recent records Date Difficult Airway Blade Size ETT Size C-L Class Final Type Intubation Method 10/19/24 No 07/08/23 No 03/02/22 No LMA 06/02/21 No LMA 02/24/21 No 3 7.0 grade I - full view of glottis endotracheal airway direct laryngoscopy MEDICATIONS Outpatient Current Outpatient Medications Medication Instructions Aspirin Low Dose 81 mg, Daily atorvastatin (LIPITOR) 10 mg, Nightly buPROPion SR (Wellbutrin SR) 150 MG 12 hr tablet 1 tablet, 2 times daily carvedilol (Coreg) 25 MG tablet 1 tablet, Daily clopidogrel (Plavix) 75 MG tablet Daily dicyclomine (BENTYL) 10 mg, Oral, 3 times daily PRN ergocalciferol (VITAMIN D-2) 50,000 Units, Daily famotidine (PEPCID) 40 mg, Oral, 2 times daily PRN hydroCHLOROthiazide (HYDRODiuril) 25 MG tablet mesalamine (Canasa) 1000 MG suppository Insert 1 suppository into the rectum 2 times a day for 30 days, THEN 1 suppository nightly. Use as directed. ondansetron (ZOFRAN) 4 mg, Oral, Every 8 hours PRN ondansetron ODT (Zofran-ODT) 8 MG disintegrating tablet DISSOLVE 1 TABLET ON THE TONGUE 3 TIMES A DAY NEEDED FOR NAUSEA AND VOMITING Ozempic (0.25 or 0.5 MG/DOSE) 0.5 mg, Weekly pantoprazole (PROTONIX) 40 mg, Oral, 2 times daily before meals, Do not crush, chew, or split. spironolactone (ALDACTONE) 25 mg, 2 times daily valsartan (Diovan) 160 MG tablet 2 times daily Vitamin D3 1.25 MG (00952 UT) capsule 1 capsule, Weekly Vitamin D3 125 MCG (5000 UT) capsule Daily Scheduled Current Scheduled Medications[3] PRNs Current PRN Medications[4] SURGICAL HX: Surgical History[5] SOCIAL HX: Social History[6] OBJECTIVE DATA LABS Lab Results Component Value Date WBC 6.23 01/13/2022 HGB 12.6 01/13/2022 HCT 37.4 01/13/2022 MCV 87 01/13/2022 PLT 195 01/13/2022 Lab Results Component Value Date CALCIUM 9.2 01/13/2022 BUN 14 01/13/2022 CREATININE 0.72 01/13/2022 BCR 19 01/13/2022 NA 137 01/13/2022 K 3.7 01/13/2022 CL 105 01/13/2022 CO2 21 (L) 01/13/2022 Type and Screen No results found for: ABO No results found for: HGBA1C No results found for: PGLU , GLUCOSE ABG No results found for: PHART , PMA3JRS , PO2ART , SO2ART , BEART , RGA4JSN , HCTART , SODIUMART , POTASSIUMART , POCTCL , POCGLU , IONCALART , LACTATE No results found for: PH , PCO2 , PO2 , L4EQUFSH , BASEEXC , HCTSYR , KSYR , CLSYR , GLUSYR , CAION , LACTATE ECHO No echocardiogram results found for the past 12 months PFTs No results found for: CKW1CHV , ZAH9PWBH , CGT3PNF , FVCPRED BP Readings from Last 5 Encounters: 11/23/24 100/69 11/03/24 99/67 10/20/24 120/75 10/12/24 124/77 10/01/24 128/86 Physical Exam Airway Mallampati: II Mouth opening: normal TM distance: >3 FB Neck ROM: full Cardiovascular Rhythm: regular Rate: normal Dental (+) edentulous, upper dentures, lower dentures Pulmonary Breath sounds clear to auscultation Neurological Skin Musculoskeletal Extremities Anesthesia Plan ASA 4 Plan was reviewed with: NURSES' REGISTRY DIRECTOR Anesthesia technique(s) discussed with the patient/family: general Anesthesia plan agreed upon was: general Anesthetic plan and risks discussed with patient. ROS Anesthesia: history of previous anesthesia. Does not have a history of anesthetic complications. Cardiovascular: Patient's ECG reviewed. CAD (s/p PCI x 7, on DAPT, off plavix x 3 days, still taking ASA) and CHF (Compensated). hypertension: Respiratory: Negative respiratory ROS. HEENT: Negative HEENT ROS. Neurological: Negative neuro ROS. Musculoskeletal: Negative musculoskeletal ROS. Gastrointestinal: GERD:PUD. obese. Hematological/Lymphatic: negative hematology/oncology ROS. Endocrine/Metabolic: diabetes mellitus (On ozempic - last dose 1 wk ago). [1] Allergies Allergen Reactions Lisinopril Cough Penicillins Rash [2] Past Medical History: Diagnosis Date ADHD Anxiety Arthritis Cancer ([facility]) 2020 rectal CHF (congestive heart failure) ([facility]) 03/12/2022 Delayed emergence from general anesthesia Depression Diabetes mellitus ([facility]) 07/20/2024 Double cervix s/p hysterectomy 2008 Exercise tolerance finding 06/01/2021 Can climb 1 flight of stairs w/o SOB Full dentures GERD (gastroesophageal reflux disease) Hypertension Irritable bowel syndrome Myocardial infarction ([facility]) 03/12/2022 Obesity Patient on combined chemotherapy and [...] cell carcinoma, arm, left 05/2021 Ulcerative colitis [3] [4] [5] Past Surgical History: Procedure Laterality Date CARDIAC STENT 4 stents SECTION, CLASSIC Apr 2006 SECTION, LOW TRANSVERSE N/A Section from [facility] COLONOSCOPY HYSTERECTOMY 2010 2008 for double cervix SKIN BIOPSY SKIN CANCER EXCISION 2014 left shoulder TUBAL LIGATION N/A Tubal Ligation from [facility] [6] Social History Tobacco Use Smoking status: Former Current packs/day: 0.00 Average packs/day: 1 pack/day for 15.0 years (15.0 ttl pk-yrs) Types: Cigarettes Start date: 03/18/1989 Quit date: 05/13/2022 Years since quittin.5 Passive exposure: Past Smokeless tobacco: Never Tobacco comments: Smoked cigarettes for 20 plus years of 2021 i stopped afyet heart attack Vaping Use Vaping status: Never Used Substance Use Topics Alcohol use: Not Currently Comment: Occasional Drug use: Not Currently Types: Cocaine, Hydrocodone, Methamphetamines, Oxycodone Comment: My sobriety date is Jul 21 2018 documented in this encounter Plan of Treatment Upcoming Encounters Date Type Department Care Team (Late st Contact Info) Description 03/15/2025 10:00 AM EST Appointment [facility] [address] [place] [address] 03/19/2025 1:40 PM EST [facility] [address] [place] [address] Shaneka Hale PA [address] [place] [address] 06/21/2025 2:00 PM EDT Appointment [facility] [id number] [place] [phone] Eladio Kaur MD [address] [place] [address] documented as of this encounter Visit Diagnoses Not on filedocumented in this encounter Administered Medications Inactive Administered Medications - up to 3 most recent administrations Medication Order MAR Action Action Date Dose Rate Site lactated Ringer's infusion Intravenous, Continuous PRN, Starting on Sat11/23/24 at 0938, Until Sat11/23/24 at 1008, Routine New Bag 11/23/2024 9:38 AM EDT propofol (Diprivan) infusion 10 mg/mL Intravenous, Continuous PRN, Starting on Sat11/23/24 at 0945, Until Sat11/23/24 at 1008, Routine Rate/Dose Change 11/23/2024 9:49 AM EDT 200 mcg/kg/min 102.24 mL/hr New Bag 11/23/2024 9:45 AM EDT 170 mcg/kg/min 86.904 mL /hr propofol (Diprivan) injection Intravenous, As needed, Starting on Sat11/23/24 at 0945, Until Sat11/23/24 at 1008, Routine, Anesthesia Intraprocedure Given 11/23/2024 9:55 AM EDT 100 mg Given 11/23/2024 9:53 AM EDT 50 mg Given 11/23/2024 9:49 AM EDT 100 mg documented in this encounter Additional Health Concerns Assessment Noted Time PHQ-9 Depression Total Score: 4 10/09/19 10:09 AM EDT A fall risk assessment has been complete d for the patient 11/03/2024 10:08 AM EDT A Body Mass Index follow-up plan has been documented for the patient 11/05/2024 3:40 PM EDT documented as of this encounter Care Teams Coin Machine Operator Relationship Specialty Start Date End Date Nikki Almeida PA [address] [place] [address] PCP - General 6/15/25 Ramirez Greer MD [address] [facility] [address] [place] [address] Surgeon Colon and Rectal Surgery 01/31/21 Eladio Kaur MD [address] [facility] [address] [place] [address] Radiation Oncologist Radiation Oncology 02/15/21 Wesley Araujo MD [address] [place] [address] Fellow Hematology and Oncology 03/02/22 documented as of this encounter
--- OUTSIDE RECORDS SUMMARY | 2024-11-25 13:00 | XMS_ITS | Encounter Summary ---
Author Organization [facility] Address [address] [place] [address] Care Team Providers Care Machine Operator Farmworker Name Role Phone Ramirez Greer MD Unavailable [phone] Eladoi Kaur MD Unavailable [phone] Wesley Araujo MD Unavailable [phone] Nikki Almeida Primary Care Provider [phone] Encounter Details Date Type Department Care Team (Latest Contact Info) Description 11/25/2024 1:00 PM EDT Office Visit [facility] Multidisciplinary Oncology Clinic [address] [place] [address] Yoon Marcos, GEEK SQUAD MANAGER [address] [facility] [address] [place] [address] 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 (Primary Dx) Social History Tobacco Use Types Packs/Day Years Used Date Smoking Tobacco: Former Cigarettes 1 15 0 03/18/1989 - 05/13/2022 Passive Smoke Exposure: Past Smokeless Tobacco: Never Tobacco Cessation:Counseling Given: Not Answered Comments:Haven't smoked cigarettes for 3 years Alcohol Use Standard Drinks/Week Comments Not Currently [...] 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 female with a history notable for [id number] anal squamous cell carcinoma s/p pelvic and [...] squamous cell carcinoma previous excised here at [facility]. Presents today for follow up. Patient doing well. Her incision is healing good. She does notes some drainage from incision that is serous colored. She alsop new redness and tenderness at open that just started last night. She denies any swelling, fevers, or chills. She has been completing dressing changes with adaptive dressingand gauze. Patient notes no other concerns today. [...] day, the skin has become very raw. 11/25/24: TH, patient could not get ride to clinic. Wound smaller. Has some new redness. Will send Bactrim to cover an infection. RTC in 2 weeks for wound check. Patient Active Problem List Diagnosis Malignant tumor [...] mellitus (CMS/HCC) 07/20/2024 Double cervix s/p hysterectomy 2008 Exercise [...] 2006 SECTION, LOW TRANSVERSE N/A Section from [facility] COLONOSCOPY HYSTERECTOMY 2010 2008 for double cervix SKIN BIOPSY SKIN CANCER EXCISION 2014 left shoulder TUBAL LIGATION N/A Tubal Ligation from [facility] Allergies Allergen Reactions Lisinopril Cough Penicillins Rash Prior to Admission medications Medication Sig Start Date End Date Taking? Authorizing Provider Aspirin Low Dose 81 MG EC tablet Take 1 tablet (81 mg) by mouth 1 (one) time each day. 03/14/22 Provider, MD Raman atorvastatin (Lipitor) 80 MG tablet Take 1 [...] 03/26/24 Shaneka Hale PA ergocalciferol 1.25 MG (75301 UT) capsule Take 1 capsule (50,000 Units) [...] if needed for nausea or vomiting. 12/06/23 Shaenka Hale PA pantoprazole (Protonix) 40 MG EC [...] Raman Antunez MD Vitamin D3 1.25 MG (68067 UT) capsule Take 1 capsule (50,000 Units) by mouth 1 (one) time per week.06/01/21 Raman Antunez MD Vitamin D3 125 MCG (5000 UT) capsule Take by mouth 1 (one) time each day. 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 There were no vitals taken for this visit. Physical Exam Constitutional: She appears healthy. No [...] I personally reviewed the films with the resident/fellow/seed technician and am relying on the radiologist's interpretation/report. We reviewed the scans and findings with the patient. ASSESSMENT: This is a 54 y.o. female with a history of anal and skin squamous cell carcinoma referred with a new lesion on her left tate that is well diff squamous cell carcinoma. PLAN: The incision appears clean and dry. Some fibrinous tissue and new redness noted on wound. Instructed to continue wet to dry dressing twice daily. Will send script for bactrim to cover any infection. We reviewed wound care instructions and activity restrictions , as well as parameters for concern, including fevers, periincisional erythema, or increased tenderness or swelling. At the end of the appointment, all questions were answered to the patient's satisfaction. She will come back to clinic in2 weeks for another wound check. Yoon Marcos [...] caregiver; documentation in EMR; and care coordination. Telehealth Statement Patient Verification Patient identity has been confirmed using name and date of ? Yes Authorizations and Agreements/Telemedicine Consent sent and consent confirmed? Yes Patient Location: Home/Other Patient confirms they are physically located in [place]? Yes If the patient is not physically located in [place], the provider has confirmed with [facility] thatthe provider is authorized to provide services in patient's stated location? Yes Provider Location: [facility] facility Audio and video or audio only? Audio and video Total visit time: 30 minutes documented in this encounter Plan of Treatment Upcoming Encounters Date Type Department Care Team (Late st Contact Info) Description 03/15/2025 10:00 AM EST Appointment [facility] [address] [place] [address] 03/19/2025 1:40 PM EST Office Visit [place] [facility] [address] [place] [address] Shaneka Hale PA [address] [facility] [address] [place] [address] 06/21/2025 2:00 PM EDT Appointment [facility] [id number] [place] [address] Eladio Kaur MD [address] [place] [address] documented as of this encounter Visit Diagnoses [...] plan has been documented for the patient 11/26/2024 11:58 AM EDT documented as of this encounter Care Teams Machine Operator Farmworker Relationship Specialty Start Date End Date Nikki Almeida PA [address] [place] [address] PCP - General 08/30/24 Ramirez Greer MD [address] [facility] [address] [place] [address] Surgeon Colon and Rectal Surgery 01/31/21 Eladio Kaur MD [address] [facility] [address] [place] [address] Radiation Oncologist Radiation Oncology 02/15/21 Wesley Araujo MD [address] [place] [address] Fellow Hematology and Oncology 03/02/22 documented as of this encounter
--- OUTSIDE RECORDS SUMMARY | 2024-12-09 13:00 | XMS_ITS | Encounter Summary ---
Author Organization Healthcare Address [address] [place] [address] Care Team Providers Care Fabrication Inspector Name Role Phone Ramirez Greer MD Unavailable [phone] Eladio Kaur MD Unavailable [phone] Wesley Araujo MD Unavailable [phone] Nikki Almeida PA Primary Care Provider [phone] Reason for Visit * Reason Comments Follow-up Squamous cell carcin montez of skin of left lower extremity Encounter Details Date Type Department Care Team (Latest Contact Info) Description 12/09/2024 1:00 PM EDT Office Visit [facility] Multidisciplinary Oncology Clinic [address] [place] [address] Yoon Marcos, REPORT MANAGER [address] [facility] [address] [place] [address] 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 (Primary Dx) Social History Tobacco Use Types Packs/Day Years Used Date Smoking Tobacco: Former Cigarettes 1 15 0 03/18/1989 - 05/13/2022 Passive Smoke Exposure: Past Smokeless Tobacco: Never Comments:Haven't smoked ciga rettes for 3 years Alcohol Use Standard Drinks/Week Comments Not Currently 0 (1 standard drink = 0.6 oz pur e alcohol) Occasional PHQ-2 Answer Date Recorded Patient Health Questionnaire-2 Score 0 12/09/2024 PHQ-9 Answer Date Recorded Patient Health Questionnaire-9 Score 4 10/08/2024 PHQ-2A Answer Date Recorded Depression Risk 0 10/01/2024 Comments No Sex and Gender Information Value Date Recorded Sex Assigned at Not on file Legal Sex Female 7:43 PM EDT Gender Identity Not on file Sexual Orientation Not on file 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 Not on file Not on file Not on file documented as of this encounter Last Filed Vital Signs Vital Sign Reading Time Taken Comments Blood Pressure 109/77 12/09/2024 1:23 PM EDT Pulse 61 12/09/2024 1:23 PM EDT Temperature 36.7 C (98.1 F) 12/09/2024 1:23 PM EDT Respiratory Rate 16 12/09/2024 1:23 PM EDT Oxygen Saturation 98% 12/09/2024 1:23 PM EDT Inhaled Oxygen Concentration - - Weight 86.1 kg (189 lb 13.1 oz) 12/09/2024 1:23 PM EDT Height 157.5 cm (5' 2 ) 12/09/2024 1:23 PM EDT Body Mass Index 34.72 12/09/2024 1:23 PM EDT documented in this encounter Functional Status * Over the past 2 weeks, how often have you been bothered by any of the following problems? Question Answer Date of Assessment Author Little interest or pleasure in doing things Not at all 12/09/2024 1:28 PM EDT Pamela Hyde Feeling down, depressed, or hopeless Not at all 12/09/2024 1:28 PM EDT Pamela Hyde Patient Health Questionnaire -2 Score 0 12/09/2024 1:28 PM EDT Pamela Hyde * Question Answer Date of Assessment Author Thoughts that you would be b michel off or hurting yourself in some way Not at all 12/09/2024 1:28 PM EDT Pamela Hyde documented as of this encounter Miscellaneous Notes * Progress Notes - Yoon Marcos APRN - 12/09/2024 1:00 PM EDT Surgical Oncology Outpatient [Progress note] Verbal consent was obtained to use ambient listening technology to assist in the documentation of the encounter: yes Chief complaint: Viktoriya Hoang is a 54 y.o. seen in Follow up for wound check History of Present Illness: History of Present Illness Patient is a 54-year-old female with a history of squamous cell carcinoma, presenting for a wound check on her left leg. She has been applying cocoa butter Vaseline to the wound, which she reports has been beneficial. The antibiotics have also been effective, leading to a reduction in redness and swelling. She has observed minimal yellow drainage from the wound, which she believes might be mixed with the Vaseline. She has a history of squamous cell carcinoma, with this being her seventh occurrence, all of which have been on the same side of her body. She is seeking advice on xudh-kqo-floeyeb treatments for skin tags and is interested in a referral to a cargo handler. Treatment History: Oncology History Overview Note Ms. Viktoriya Hoang is a 50 y.o. y/o female anoectal carcinoma. She was first evaluated by Dr. Sibley in [place], [place] in August 2020 for tenesmus, rectal bleeding, and urge to defecate. She had been referred for colonoscopy at that time but did not follow up with scheduled colonoscopies. History is detailed below: 01/18/2021: Colonoscopy at [facility] with Dr. Alas * Anorectal lesion appears pedunculated, lobulated, firm, and irregular, concerning for very distalrectal carcinoma * Unable to be biopsied due to distal location and poor patient tolerance of anesthesia 01/24/2021: CT [facility], [place], [place] * 18 mm LEFT adrenal nodule, previously measured 10 mm. Increased in size since 2008, slow intervalgrowth suggestive of benign etiology * No findings concerning for metastatic disease 01/31/2021: MR Pelvis w/ and w/o Contrast * Tumor 4.3 cm in craniocaudal length, predominantly below anorectal junction. Located 1 cm from anal verge, extends approximately 1.4 cm above puborectalis/anorectal junction * Sessile polypoidal, partially circumferential; seen along LEFT lateral wall, confined to rectal wall * Invades internal sphincter only on LEFT side * No visible lymph nodes/deposits. No suspicious extra-mesorectal lymph nodes * Staged T1/2,N0 02/13/2021: Flexible sigmoidoscopy with Dr. Greer * Firm distal rectal mass at level of anal opening, located at LEFT anterior position * No biopsy performed 02/24/21 Surgery: transanal exisional biopsy of mass Path: Ulcerated invasive squamous-cell carcinoma, poorly differentiated (pT1 / N not assigned) Tumor infiltrates subjacent to flat mucosal surface Margin (invasive tumor): positive (right distal) [squamous-surfaced margin] Squamous-cell carcinoma in situ A. RECTAL MASS- SHORT SILK STICH AT DISTAL MARGIN- LONG STITCH AT RIGHT MARGIN The specimen is received in formalin labeled rectal mass- short silk stitch at distal margin- longstitch at right margin and consists of the aforemention oriented specimen which measures 5.1 cm from distal to proximal, 2.1 cm from left to right, and 2.3 cm from superficial to deep (i.e from the superficial mucosal surface to the cut resection surface). The specimen is remarkable for a pink polypoid raised lesion (4.5 x 2.3 x 2.1 cm) which grossly occupies majority of mucosal surface. This lesion is 0.5 cm from the distal margin, 1.1 cm from the proximal margin, 0.3 cm from the right margin, and 0.2 cm from the left margin. The half of the cut resection surface which corresponds to the right margin is inked blue and the half of the cut surface which corresponds to the left margin is inked black. Gross photos are taken for future reference. The specimen is serially sectioned along its longitudinal axis from distal to proximal and entirely submitted as follows: A1: Distal margin A2: Proximal margin A3-A11: Remainder of specimen submitted entirely from distal to proximal Olive Hayden MD 03/07/21 PET/CT: - Uptake locally at resection bed. Mild FDG avid pelvic adenopathy concerning for metastatic disease. Right hemiliver focus of FDG uptake She has an FDG avid LN at the left inguinal area. No FDG avid metastatic disease above the diaphragm. Mucosal thickening and air-fluid levels within the maxillary sinus, with associated mild FDG avidity. These findings are suggestive of acute sinusitis. 03/13/21 MR Abdomen (to assess liver lesion): No evidence of disease Due to inguinal LN + and size of mass of 4 cm and likely positive LN then stage at 03/16/2021 wouldbe at least [id number] stage IIIA Malignant tumor of anorectal junction (CMS/HCC) 02/20/2021 Initial Diagnosis Malignant tumor of anorectal junction (CMS/HCC) 02/24/2021 - Radiation Therapy The patient saw Eladio Kaur MD for radiation treatment. This is the current list of radiation treatment: Radiation Treatments No radiation treatments to show. (Treatments may have been administered in another system.) 02/24/2021 - Radiation Therapy The patient saw Eladio Kaur MD for radiation treatment. This is the current list of radiation treatment: Radiation Treatments No radiation treatments to show. (Treatments may have been administered in another system.) 03/30/2021 - 04/27/2021 Chemotherapy mitoMYcin (Mutamycin) chemo injection 19.6 mg, 10 mg/m2 = 19.6 mg, Intravenous, Once, 2 of 2 cycles Administration: 19.6 mg (03/30/2021), 19.6 mg (04/27/2021) Past Medical History: Past Medical History Pertinent Negatives[1] Past Surgical History: Surgical History[2] Social History: Tobacco: Tobacco Use: Medium Risk (10/08/2024) Patient History Smoking Tobacco Use: Former Smokeless Tobacco Use: Never Passive Exposure: Past Alcohol: Alcohol Use: Not on file Illicit drug use: Social History Substance and Sexual Activity Drug Use Not Currently Types: Cocaine, Hydrocodone, Methamphetamines, Oxycodone Comment: My sobriety date ise My 2018 Allergies: Allergies[3] Family Medical History: family history includes Anesthesia problems in her father; Arthritis in herbrother and mother; Cancer in her maternal grandmother and mother; Chemotherapy in her father's sister; Diabetes in her father; Heart attack in her paternal grandmother; Heart disease in her father and maternal grandmother; Hypertension in her mother; Lung cancer in her father's sister; No Known Problems in her sister; Pneumonia in her father; Skin cancer in her mother. Home Medications: Prior to Admission medications Medication Sig Start Date End Date Taking? Authorizing Provider Aspirin Low Dose 81 MG EC tablet Take 1 tablet by mouth daily. 03/14/22 Provider, Historical atorvastatin (Lipitor) 10 MG tablet Take 1 tablet by mouth nightly. 10/06/24 Provider, Historical buPROPion SR (Wellbutrin SR) 150 MG 12 hr tablet Take 1 tablet by mouth 2 times a day. 09/26/22 Provider, Historical carvedilol (Coreg) 25 MG tablet Take 1 tablet by mouth daily. 03/21/22 Provider, Historical clopidogrel (Plavix) 75 MG tablet Take by mouth 1 (one) time each day. Provider, Historical dicyclomine (Bentyl) 10 MG capsule Take 1 capsule by mouth 3 times a day as needed (abd cramping). 10/08/24 Shaneka Hale PA ergocalciferol 1.25 MG (02239 UT) capsule Take 1 capsule by mouth daily. 04/03/22 Provider, Historical famotidine (Pepcid) 40 MG tablet Take 1 tablet by mouth 2 times a day as needed for heartburn. 10/08/24 Shaneka Hale PA hydroCHLOROthiazide (HYDRODiuril) 25 MG tablet 07/07/24 Provider, Historical mesalamine (Canasa) 1000 MG suppository Insert 1 suppository into the rectum 2 times a day for 30 days, THEN 1 suppository nightly. Use as directed. 10/08/24 12/07/24 Shaneka Hale PA ondansetron (Zofran) 4 MG tablet Take 1 tablet (4 mg) by mouth every 8 (eight) hours if needed for nausea or vomiting. 12/06/23 Shaneka Hale PA ondansetron ODT (Zofran-ODT) 8 MG disintegrating tablet DISSOLVE 1 TABLET ON THE TONGUE 3 TIMES A DAY NEEDED FOR NAUSEA AND VOMITING 09/17/24 Provider, Historical pantoprazole (Protonix) 40 MG EC tablet Take 1 tablet by mouth 2 times a day before meals. Do not crush, chew, or split. 10/08/24 Shaneka Hale PA semaglutide (Ozempic, 0.25 or 0.5 MG/DOSE,) 2 MG/1.5ML solution pen-injector inj. pen Inject 0.375 mL under the skin 1 time per week. Provider, Historical spironolactone (Aldactone) 25 MG tablet Take 1 tablet by mouth 2 times a day. 03/21/22 Provider, Historical sulfamethoxazole-trimethoprim (Bactrim DS) 800-160 MG tablet Take 1 tablet by mouth 2 times a day for 10 days. 11/25/24 12/05/24 Yoon Marcos APRN valsartan (Diovan) 160 MG tablet 2 (two) times a day. 08/30/22 Provider, Historical Vitamin D3 1.25 MG (82873 UT) capsule Take 1 capsule (50,000 Units) by mouth 1 (one) time per week. Patient not taking: Reported on 10/12/2024 06/01/21 Provider, Historical Vitamin D3 125 MCG (5000 UT) capsule Take by mouth 1 (one) time each day. 05/08/23 Provider, Historical Review of Systems: Review of Systems Constitutional: Negative. HENT: Negative. Eyes: Negative. Respiratory: Negative. Cardiovascular: Negative. Gastrointestinal: Negative. Endocrine: Negative. Genitourinary: Negative. Musculoskeletal: Negative. Skin: Positive for rash. Neurological: Negative. Hematological: Negative. Psychiatric/Behavioral: Negative. Physical exam: Physical Exam Constitutional: Appearance: Normal appearance. She is normal weight. HENT: Head: Normocephalic. Eyes: Pupils: Pupils are equal, round, and reactive to light. Cardiovascular: Rate and Rhythm: Normal rate and regular rhythm. Pulses: Normal pulses. Heart sounds: Normal heart sounds. Pulmonary: Effort: Pulmonary effort is normal. Breath sounds: Normal breath sounds. Abdominal: General: Abdomen is flat. Bowel sounds are normal. Palpations: Abdomen is soft. Musculoskeletal: General: Normal range of motion. Cervical back: Normal range of motion and neck supple. Skin: General: Skin is warm and dry. Capillary Refill: Capillary refill takes less than 2 seconds. Findings: Lesion present. Neurological: General: No focal deficit present. Mental Status: She is alert and oriented to person, place, and time. Mental status is at baseline. Psychiatric: Mood and Affect: Mood normal. Behavior: Behavior normal. Thought Content: Thought content normal. Judgment: Judgment normal. Physical Exam Integument/Skin: Incision on the left leg appears healthy. Redness has significantly improved. A small amount of fibrous tissue is present. Objective: All laboratory, images, tracings, and vital sign data are personally reviewed unless otherwise noted. ECOG-0 Life expectancy greater then 3 months VITALS Visit Vitals BP 109/77 Pulse 61 Temp 36.7 ??C (98.1 ??F) Ht 1.575 m (5' 2 ) Wt 86.1 kg (189 lb 13.1 oz) SpO2 98% BMI 34.72 kg/m?? LABS Lab Results Component Value Date WBC 6.23 01/13/2022 HGB 12.6 01/13/2022 HCT 37.4 01/13/2022 PLT 195 01/13/2022 NA 137 01/13/2022 K 3.7 01/13/2022 CL 105 01/13/2022 CO2 21 (L) 01/13/2022 BUN 14 01/13/2022 CREATININE 0.72 01/13/2022 GLUCOSE 91 01/13/2022 CALCIUM 9.2 01/13/2022 MG 2.2 01/13/2022 Lab Results Component Value Date TP 7.4 01/13/2022 ALBUMIN 3.9 01/13/2022 AST 35 (H) 01/13/2022 ALT 21 01/13/2022 BILITOT 0.3 01/13/2022 ALKPHOS 117 (H) 01/13/2022 Lab Results Component Value Date INR 0.9 03/20/2021 Lab Results Component Value Date CEA 2.3 03/16/2021 CEA 2.9 02/21/2021 Radiographics/Diagnostics: None Pathology: Final Diagnosis (no units) Date/Time Value 10/01/2024 1442 SKIN, LEFT LEG, WIDE LOCAL EXCISION: - INVASIVE WELL DIFFERENTIATED SQUAMOUS CELL CARCINOMA, COMPLETELY EXCISED. Comment (no units) Date/Time Value 02/24/2021 1227 pT2: Tumor greater than 2 cm but less than or equal to 5 cm pN: not assigned (no nodes submitted or found) Assessment & Plan: Assessment & Plan 1. Wound on the left leg. The wound on the left leg shows significant improvement, with reduced redness and swelling. The infection present two weeks ago appears to have resolved. Discontinuation of dressing the wound was advised, and it should be exposed to air while keeping it clean and dry. Washing with antibacterial soap was recommended. Once the underlying skin heals, the scab should naturally detach. 2. Squamous cell carcinoma. There is a history of squamous cell carcinoma, with this being the seventh occurrence, all on the same side of the body. A referral to a cargo handler in [place] was provided. The patient was advised to contact the clinic if any new lesions or squamous cell carcinoma spots appear, so a consultation with Dr. Love can be arranged. Ytqy-loc-zaxeedh skin tag creams are available at pharmacies, and thepatient was advised to consult a pharmacist for recommendations. As always, she is encouraged to contact our office at the number provided for any additional questions or concerns. She voiced understanding of the plan, asked appropriate questions, and all questions were answered to her satisfaction today. Yoon Marcos APRN 12/10/24 10:14 AM [1] Past Medical History: Diagnosis Date ADHD Anxiety Arthritis Cancer ([facility]) 2020 rectal CHF (congestive heart failure) ([facility]) 03/12/2022 Delayed emergence from general anesthesia Depression Diabetes mellitus ([facility]) 07/20/2024 Double cervix s/p hysterectomy 2008 Exercise tolerance finding 06/01/2021 Can climb 1 flight of stairs w/o SOB Full dentures GERD (gastroesophageal reflux disease) Hypertension Irritable bowel syndrome Myocardial infarction ([facility]) 03/12/2022 Obesity Patient on combined chemotherapy and [...] cell carcinoma, arm, left 05/2021 Ulcerative colitis [2] Past Surgical History: Procedure Laterality Date CARDIAC STENT 4 stents CARDIOTHORACIC PROCEDURE I have had 7 stints SECTION, CLASSIC Apr 2006 SECTION, LOW TRANSVERSE N/A Section from [facility] COLONOSCOPY HYSTERECTOMY 2010 2008 for double cervix SKIN BIOPSY SKIN CANCER EXCISION 2014 left shoulder TUBAL LIGATION N/A Tubal Ligation from [facility] [3] Allergies Allergen Reactions Lisinopril Cough Penicillins Rash documented in this encounter Plan of Treatment Upcoming Encounters Date Type Department Care Team (Late st Contact Info) Description 03/15/2025 10:00 AM EST Appointment [facility] Radiology [address] [place] [address] 03/19/2025 1:40 PM EST Office [address] [facility] Medicine Specialties [address] [place] [address] Shaneka Hale PA [address] [place] [address] 06/21/2025 2:00 PM EDT Appointment [facility] Radiation [address] [id number] [place] [address] Eladio Kaur MD [address] [facility] [address] [place] [address] documented as of this encounter Visit Diagnoses Diagnosis 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- Primary documented in this encounter Additional Health Concerns Assessment Noted Time PHQ-9 Depression Total Score: 4 10/09/19 25 10:09 AM EDT A fall risk assessment has been complete d for the patient 12/09/2024 1:28 PM EDT A Body Mass Index follow-up plan has been documented for the patient 12/10/2024 10:25 AM EDT documented as of this encounter Care Teams Fabrication Inspector Relationship Specialty Start Date End Date Nikki Almeida PA [address] [place] [address] PCP - General 08/30/24 Ramirez Greer MD [address] [facility] [address] [place] [address] Surgeon Colon and Rectal Surgery 01/31/21 Eladio Kaur MD [address] [facility] [address] [place] [address] Radiation Oncologist Radiation Oncology 02/15/21 Wesley Araujo MD [address] [place] [id number] Fellow Hematology and Oncology 03/02/22 documented as of this encounter
[2024-12-29 21:23] VITALS: BP 160/102; PULSE 112; RESP 18; TEMP 36.8; O2SAT 97; BMI 29.9
--- NOTE | 2024-12-29 21:29 | PC.NURSE ---
patient triage complete at this time. patient sent back to the lobby for the time being and xrays ordered. patient educated to knock on triage door and let staff know if anything worsens so she can be reevaluated, patient agreeable to plan thus far.
--- NOTE | 2024-12-29 21:30 | XR_ITS ---
PROCEDURE INFORMATION: Exam: XR Right Shoulder Exam date and time: 12/29/2024 10:13 PM Age: 54 years old Clinical indication: Pain; Shoulder; Right; Additional info: Arm pain TECHNIQUE: Imaging protocol: Radiologic exam of the right shoulder. Views: 2 or more views. COMPARISON: CR XR SHOULDER RT MIN 2V 12/29/2024 10:13 PM FINDINGS: Bones/joints: No acute fracture. [id number] degenerative changes of glenohumeral joint. Early degenerative changes of acromioclavicular joint. No dislocation. Soft tissues: Unremarkable. IMPRESSION: No fracture. If pain persists, consider MRI for further evaluation.
--- OUTSIDE RECORDS SUMMARY | 2024-12-29 21:31 | XMS_ITS | Encounter Summary ---
Author Organization [facility] Address [address] [place] [address] Care Team Providers Care Turbine Technician Name Role Phone Ramirez Greer MD Unavailable [phone] Eladio Kaur MD Unavailable [phone] Wesley Araujo MD Unavailable [phone] Nikki Almeida Primary Care Provider [phone] Reason for Referral * Imaging (Routine) - Pending Review Specialty Diagnoses / Procedures Referred By Contac t Referred To Contact Radiology Diagnoses History of rectal or anal cancer Colon stricture (CMS/HCC) Procedures CT Abdomen Pelvis w IV Contrast Shaneka Hale PA [address] [facility] [address] [place] [address] Phone: tel: fax: Referral ID Status Reason Start Date Expiration Date V isits Requested Visits Authorized [id number] Pending Review 11/26/2024 05/28/2026 1 1 Encounter Details Date Type Department Care Team (Late st Contact Info) Description 11/26/2024 Orders Only [facility] [address] [place] [address] Shaneka Hale PA [address] [facility] [address] [place] [address] History of rectal or anal cancer (Primary Dx); Colon stricture (CMS/HCC) Social History Tobacco Use Types Packs/Day Years [...] 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 Greer- will order Surveillance colonoscopy performed in the setting of prior history of anal cancer requiring chemoradiation. 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 Telangiectasias were present within the anal canal. No active bleeding. Approximately 20-25 cm from the anal verge, acute angulation wasencountered that prevented safe passage of the endoscope [...] needs repeat flexible sigmoidoscopy in 1.5 years. documented in this encounter Plan of Treatment Upcoming Encounters Date Type Department Care Team (Late st Contact Info) Description 03/15/2025 10:00 AM EST Appointment [facility] [address] [place] [address] 03/19/2025 1:40 PM EST Office Visit [facility] [address] [place] [address] Shaneka Hale PA [address] [place] [address] 06/21/2025 2:00 PM EDT Appointment [facility] [address] [place] [address] Eladio Kaur MD [address] [place] [address] Scheduled Orders Name Type Priority Associated Diagnoses Orde r Schedule CT Abdomen Pelvis w IV Contrast Imaging Routine History of rectal or anal cancer Colon stricture (CMS/HCC) Expected: 11/26/2024 (Approximate), Expires: 05/30/2026 documented as of this encounter Visit Diagnoses Diagnosis History of rectal or anal cancer- Primary Personal history of malignant neoplasm of rectum, rectosigmoid junction, and anus Colon stricture (CMS/HCC) Unspecified intestinal obstruction documented in this encounter Additional Health Concerns Assessment Noted Time PHQ-9 Depression Total Score: 4 10/09/19 25 10:09 AM EDT A fall risk assessment has been complete d for the patient 11/03/2024 10:08 AM EDT A Body Mass Index follow-up plan has been documented for the patient 11/26/2024 11:58 AM EDT documented as of this encounter Care Teams Turbine Technician Relationship Specialty Start Date End Date Nikki Almeida PA [address] [place] [address] PCP - General 08/30/24 Ramirez Greer MD [address] [place] [address] Surgeon Colon and Rectal Surgery 01/31/21 Eladio Kaur MD [address] [place] [address] [address] [place] [address] Radiation Oncologist Radiation Oncology 02/15/21 Wesley Araujo MD [address] [place] [address] Fellow Hematology and Oncology 03/02/22 documented as of this encounter
--- OUTSIDE RECORDS SUMMARY | 2024-12-29 21:31 | XMS_ITS | Encounter Summary ---
Author Organization Healthcare Address [address] [place] [address] Care Team Providers Care Efficiency Clerk Name Role Phone Ramirez Greer MD Unavailable [phone] Eladio Kaur MD Unavailable [phone] Wesley Araujo MD Unavailable [phone] Nikki Almeida Primary Care Provider [phone] Encounter Details Date Type Department Care Team (Late st Contact Info) Description 11/25/2024 Telephone [facility] [address] [place] [address] Yoon Marcos, BANDAGE MAKER [address] [facility] [address] [place] [address] Social History Tobacco Use Types Packs/Day Years [...] 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 Hoang is calling to ask if her appt w/ Ms. Marcos can be TH appt she had set up a ride for transportation bus but they just told her that they have no record of her calling and she said she hasthe confirmation number but they will not pick her up. So she is calling to ask can it be a TH apptinstead. She has an appt at 1:00 today Best contact number and optimal time of day to reach caller: [phone] Note: Please do not reply to this message. Follow-up communication and further actions as a result of this message need to be communicated with the patient directly, if the patient is not active onMyChart. If the patient is active on MyChart, they will receive notification of the communication/outcome via [employer]. documented in this encounter Plan of Treatment Upcoming Encounters Date Type Department Care Team (Late st Contact Info) Description 03/15/2025 10:00 AM EST Appointment [facility] G Radiology [address] [place] [address] 03/19/2025 1:40 PM EST Office Visit [place] [facility] [address] [place] [address] Shaneka Hale PA [address] [place] [address] 06/21/2025 2:00 PM EDT Appointment [facility] CC Radiation [id number] [place] [phone] Eladio Kaur MD [address] [place] [address] documented as of this encounter Visit Diagnoses Not on filedocumented in this encounter Additional Health Concerns Assessment Noted Time PHQ-9 Depression Total Score: 4 10/09/19 25 10:09 AM EDT A fall risk assessment has been complete d for the patient 11/03/2024 10:08 AM EDT A Body Mass Index follow-up plan has been documented for the patient 11/26/2024 11:58 AM EDT documented as of this encounter Care Teams Efficiency Clerk Relationship Specialty Start Date End Date Nikki Almeida PA [address] [place] [address] PCP - General 08/30/24 Ramirez Greer MD [address] [place] [address] Surgeon Colon and Rectal Surgery 01/31/21 Eladio Kaur MD [address] [place] [address] Radiation Oncologist Radiation Oncology 02/15/21 Wesley Araujo MD [address] [id number] Fellow Hematology and Oncology 03/02/22 documented as of this encounter
--- OUTSIDE RECORDS SUMMARY | 2024-12-29 21:31 | XMS_ITS | Encounter Summary ---
Author Organization Healthcare Address [address] 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 [place] [phone] Eladio Kaur MD [address] [place] [address] documented as of this encounter [...] documented as of this encounter Care Teams Record Changer Assembler Relationship Specialty Start Date End Date Nikki Almeida PA [address] [place] [address] PCP - General 08/30/24 Ramirez Greer MD [address] [place] [address] Surgeon Colon and Rectal Surgery 01/31/21 Eladio Kaur MD [address] [place] [id number] Radiation Oncologist Radiation Oncology 02/15/21 Wesley Araujo MD [address] [place] [address] Fellow Hematology and Oncology 03/02/22 documented as of this encounter
--- OUTSIDE RECORDS SUMMARY | 2024-12-29 21:32 | XMS_ITS | Encounter Summary ---
Author Organization Healthcare Address [address] [place] [address] Care Team Providers Care Nanotechnology Engineering Technologist Name Role Phone Ramirez Greer MD Unavailable [phone] Eladio Kaur MD Unavailable [phone] Wesley Araujo MD Unavailable [phone] Nikki Almeida Primary Care Provider [phone] Encounter Details Date Type Department Care Team (Late st Contact Info) Description 11/17/2024 Telephone [facility] [address] [place] [address] Yoon Marcos, [employer] [address] [facility] [address] [place] [address] Social History Tobacco Use Types [...] 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 Patient has given consent & been notified. * Telephone Encounter - Sylwia Nolan - 11/17/2024 12:39 PM EDT Patient Phone Message Reason for Call: Ms. Hoang is calling to r/s her appt she has for this afternoon, her transportation bus just came to pick her up and it will take an hour for her to get up here Best contact number and optimal time of day to reach caller: [phone] Note: Please do not reply to this message. Follow-up communication and further actions as a result of this message need to be communicated with the patient directly, if the patient is not active onMyChart. If the patient is active on MyChart, they will receive notification of the communication/outcome via Myworldwallhart. documented in this encounter Plan of Treatment Upcoming Encounters Date Type Department Care Team (Late st Contact Info) Description 03/15/2025 10:00 AM EST Appointment [facility] G Radiology [address] [place] [address] 03/19/2025 1:40 PM EST Office Visit [place] [facility] [address] [place] [address] Shaneka Hale PA [address] [place] [address] 06/21/2025 2:00 PM EDT Appointment [facility] CC Radiation [id number] [place] [address] Eladio Kaur MD [address] [facility] [address] [place] [address] documented as of this encounter [...] documented as of this encounter Care Teams Nanotechnology Engineering Technologist Relationship Specialty Start Date End Date Nikki Almeida PA [address] [place] [address] PCP - General 08/30/24 Ramirez Greer MD [address] [place] [address] Surgeon Colon and Rectal Surgery 01/31/21 Eladio Kaur MD [address] [place] [address] Radiation Oncologist Radiation Oncology 02/15/21 Wesley Araujo MD [address] [address] Fellow Hematology and Oncology 03/02/22 documented as of this encounter
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
--- OUTSIDE RECORDS SUMMARY | 2024-12-29 21:32 | XMS_ITS | Data Portability ---
Author Organization [facility] [employer] Address [address] [place] [address] Assessment No assessment recorded. Plan of Treatment Reminders Order Date Submit Date Provider Last Modified By Organization Details Last Modified Time Details Appointments FOLLOW UP 15 2024 01:30P Amelie Almeida PA-C Not available Not available Not available Lab HbA1c (hemoglob in A1c), blood [id number], [address] [place], [address], 12/08/2024 13:21:44 microalbu min/creat inine, mass ratio, urine 2024 025 [facility], [address] [place], [address], 12/08/2024 13:18:18 microalbu min/creat inine, mass ratio, urine [id number], [address] [place], [address], 08/04/2024 13:41:23 cobalamin and folate panel, serum 2024 025 [facility], [address] [place] [address], [place], [address], 07/11/2024 03:08:50 zinc, serum or plasma 2024 025 [facility] [address] [place], [address], 07/11/2024 03:08:52 lipid panel, serum 2024 025 [facility] [address] [place], [address], 07/11/2024 03:08:50 CMP, serum or plasma 2024 025 [facility] [address] [place], [address], 07/11/2024 03:08:49 CBC w/ auto diff 2024 025 [facility] [address] [place], [address], 07/11/2024 03:08:49 vitamin D, 25-hydrox y, total, serum 2024 025 [facility] [address] [place], [address], 07/11/2024 03:08:51 TSH, ultra-sen sitive, serum 2024 025 [facility] [address] [place], [address], 07/11/2024 03:08:51 Hepatitis C IgG Ab, qual, serum 2024 025 [facility] [address] [place], [address], 07/11/2024 03:08:51 HIV 1 + 2, meaningfu l use set 2024 025 [facility] [place] [address] [place], [address], 07/11/2024 03:08:52 Referral None recorded. Procedures None recorded. Surgeries None recorded. Imaging MAMMO, screening , bilateral 2024 025 [email or web address] [facility] [address], [place], [address], 12/04/2024 13:50:28 Medication Orders Ozempic 1 mg/dose (4 mg/3 mL) subcutane ous pen injector 2024 025 [facility], [facility]4 [facility] [address], [place], [id number], 12/11/2024 17:10:16 bupropion HCl SR 150 mg tablet,12 hr sustained -release 2024 025 [facility], [address] [place] [address] S, [place], [id number], 12/08/2024 13:40:17 dicyclomi ne 10 mg capsule 2024 025 [facility], [facility] [place] [address] [address], [place], [id number], 11/06/2024 18:05:44 pantopraz ole 40 mg tablet,de layed release 2024 025 [facility], [facility] [place] [address] [address], [place], [id number], 11/06/2024 18:05:47 Ozempic 0.25 mg or 0.5 mg (2 mg/3 mL) subcutane ous pen injector 2024 025 [facility], [address] [place] [address] S, [place], [id number], 11/06/2024 18:05:43 Lipitor 10 mg tablet 2024 025 [facility], [address] [place] [address], [place], [id number], 12/07/2024 17:21:23 clopidogr el 75 mg tablet 2024 025 [facility], [address] [place], [place] [address], [id number], 12/07/2024 17:21:21 cholecalc iferol (vitamin D3) 125 mcg (5,000 unit) capsule 2024 025 [facility], [address] [place] [address], [place], [id number], 12/07/2024 17:21:21 carvedilo l 25 mg tablet 2024 025 [facility], [address] [place] [address] [place], [id number], 12/07/2024 17:21:24 hydrochlo rothiazid e 25 mg tablet 2024 025 [facility], [address] [place], [place] [address], [id number], 11/06/2024 18:05:41 valsartan 160 mg tablet 2024 025 [facility], [address] [place] [address] [place], [id number], 11/06/2024 18:05:42 bupropion HCl SR 150 mg tablet,12 hr sustained -release [address] [facility], [address] [place] [address] [place], [id number], 12/08/2024 13:16:32 spironola ctone 25 mg tablet 2024 025 [facility], [address] [place] [address], [place], [id number], 12/07/2024 17:21:20 Ozempic 0.25 mg or 0.5 mg (2 mg/1.5 mL) subcutane ous pen injector 2024 025 [facility], [address] [place] [address], [place], [id number], 09/07/2024 13:57:24 chlorhexi dine gluconate 0.12 % mouthwash 2024 025 [facility], [address] [place] [address], [place], [id number], 09/07/2024 13:57:24 hydrochlo rothiazid e 25 mg tablet 2024 025 [facility], [address] [place] [address], [place], [id number], 12/07/2024 17:21:20 dicyclomi ne 10 mg capsule 2024 025 [facility], [address] [place] [address], [place], [id number], 06/10/2024 18:06:49 pantopraz ole 40 mg tablet,de layed release 2024 025 [facility], [address] [place] [address], [place], [id number], 06/10/2024 18:06:50 atorvasta tin 80 mg tablet 2024 025 [facility], [address] [place] [address], [place], [id number], 07/08/2024 13:23:45 Orabase (benzocai ne) 20 % mucosal paste 2024 [facility], [address] [place] [address] [place], [id number], 08/04/2024 13:21:35 triamcino lone acetonide 0.1 % dental paste 2024 [facility], [address] [place] [address], [place], [id number], 08/04/2024 13:21:36 clopidogr el 75 mg tablet 2024 [facility], [address] [place] [address] [place], [id number], 08/06/2024 12:42:47 cholecalc iferol (vitamin D3) 125 mcg (5,000 unit) capsule 2024 [facility], [address] [place] [address], [place], [id number], 08/06/2024 12:42:46 carvedilo l 25 mg tablet 2024 [facility], [address] [place] [address] [place], [place], [id number], 08/06/2024 12:42:47 valsartan 160 mg tablet 2024 [facility], [address] [place] [address] [place], [id number], 06/10/2024 18:06:45 bupropion HCl SR 150 mg tablet,12 hr sustained -release 2024 [facility], [address] [place] [address] [place], [id number], 08/06/2024 12:42:46 spironola ctone 25 mg tablet 2024 025 [facility], [address] [address] [place], [id number], 08/06/2024 12:42:49 Patient TargetsNo targets recorded. Patient Instructions Encounter Date Encounter Id Patient Instructions Last Modified By Organization Details Last Modified Time 06/09/2024 [id number] irritable bowel syndrome: care instructions Not available 06/09/2024 14:31:45 gastroesophageal reflux disease (GERD): care instructions [email or web address] Not available 06/09/2024 14:31:45 high cholesterol : care instructions [email or web address] Not available 06/09/2024 14:31:45 canker sore: car e instructions [email or web address] Not available 06/09/2024 14:34:07 high blood press ure: care instructions [email or web address] Not available 06/09/2024 14:31:45 learning about h igh blood pressure [id number] Not available 06/09/2024 14:31:45 learning about m ood disorders [email or web address] Not available 06/09/2024 14:31:45 heart failure: c are instructions [email or web address] Not available 06/09/2024 14:31:45 learning about h eart failure [email or web address] Not available 06/09/2024 14:31:46 07/07/2024 [id number] canker sore: car e instructions [email or web address] Not available 07/07/2024 13:14:21 high blood press ure: care instructions [email or web address] Not available 07/07/2024 13:15:05 learning about h igh blood pressure [email or web address] Not available 07/07/2024 13:15:05 HIV testing: car e instructions [email or web address] Not available 07/07/2024 13:34:28 08/04/2024 [id number] mammogram: about this test [email or web address] Not available 08/04/2024 13:21:07 body mass index: care instructions [email or web address] Not available 08/04/2024 13:41:23 learning about healthy weight [email or web address] Not available 08/04/2024 13:41:23 09/07/2024 [id number] irritable bowel syndrome: care instructions [email or web address] Not available 09/07/2024 13:58:36 gastroesophageal reflux disease (GERD): care instructions Not available 09/07/2024 13:58:36 high cholesterol : care instructions [email or web address] Not available 09/07/2024 13:58:36 high blood press ure: care instructions Not available 09/07/2024 13:58:35 learning about h igh blood pressure [email or web address] Not available 09/07/2024 13:58:36 learning about m ood disorders [email or web address] Not available 09/07/2024 13:58:35 heart failure: c are instructions [email or web address] Not available 09/07/2024 13:58:36 learning about h eart failure [email or web address] Not available 09/07/2024 13:58:35 12/08/2024 [id number] learning about t ype 2 diabetes [email or web address] Not available 12/08/2024 13:12:19 type 2 diabetes: care instructions [email or web address] Not available 12/08/2024 13:12:19 Reason for Referral None Reported. Results Created Date Observation Date Name Description Value Unit Range Abnormal Flag Note LastModifiedBy Organization Detail LastModifiedTime 07/08/19 25 07/08/2024 CBC WITH DIFFE RENTI AL/PL ATELE T WBC 5.5 x10e3 /uL 3.4-10 .8 normal Not Available [facility] ([facility]) [address] [place], [address], 07/11/2024 03:08:49 07/08/19 25 07/08/2024 CBC WITH DIFFE RENTI AL/PL ATELE T RBC 4.32 x10e6 /uL 3.77-5 .28 normal Not Available [facility] ([facility]) [address] [place], [address], 07/11/2024 03:08:49 07/08/19 25 07/08/2024 CBC WITH DIFFE RENTI AL/PL ATELE T hemoglobin 12.4 g/dL 11.1-1 5.9 normal Not Available [facility] ([facility]) [address] [place], [address], 07/11/2024 03:08:49 07/08/19 25 07/08/2024 CBC WITH DIFFE RENTI AL/PL ATELE T hematocrit 38.2 % 34.0-4 6.6 normal Not Available [facility] ([facility]) [address] [place], [address], 07/11/2024 03:08:49 07/08/19 25 07/08/2024 CBC WITH DIFFE RENTI AL/PL ATELE T MCV 88 fL 79-97 normal Not Available [facility] ([facility]) [address] [place], [address], 07/11/2024 03:08:49 07/08/19 25 07/08/2024 CBC WITH DIFFE RENTI AL/PL ATELE T MCH 28.7 pg 26.6-3 3.0 normal Not Available [facility] ([facility]) [address] [place], [address], 07/11/2024 03:08:49 07/08/19 25 07/08/2024 CBC WITH DIFFE RENTI AL/PL ATELE T MCHC 32.5 g/dL 31.5-3 5.7 normal Not Available [facility] ([facility]) [address] [place], [address], 07/11/2024 03:08:49 07/08/19 25 07/08/2024 CBC WITH DIFFE RENTI AL/PL ATELE T RDW 13.6 % 11.7-1 5.4 Not Available [facility] ([facility]) [address] [place], [address], 07/11/2024 03:08:49 07/08/19 25 07/08/2024 CBC WITH DIFFE RENTI AL/PL ATELE T platelets 229 x10e3 /uL 150-45 0 normal Not Available [facility] ([facility]) [address] [place], [address], 07/11/2024 03:08:49 07/08/19 25 07/08/2024 CBC WITH DIFFE RENTI AL/PL ATELE T neutrophils 69 % not estab. normal Not Available [facility] ([facility]) [address] [facility], [place], [address], 07/11/2024 03:08:49 07/08/19 25 07/08/2024 CBC WITH DIFFE RENTI AL/PL ATELE T lymphs 15 % not estab. normal Not Available [facility] ([facility]) [address] [facility], [place], [address], 07/11/2024 03:08:49 07/08/19 25 07/08/2024 CBC WITH DIFFE RENTI AL/PL ATELE T monocytes 11 % not estab. normal Not Available [facility] ([facility]) [address] [facility], [place], [address], 07/11/2024 03:08:49 07/08/19 25 07/08/2024 CBC WITH DIFFE RENTI AL/PL ATELE T eos 3 % not estab. normal Not Available [facility] ([facility]) [address] [facility], [place], [address], 07/11/2024 03:08:49 07/08/19 25 07/08/2024 CBC WITH DIFFE RENTI AL/PL ATELE T basos 1 % not estab. normal Not Available [facility] ([facility]) [address] [place], [address], 07/11/2024 03:08:49 07/08/19 25 07/08/2024 CBC WITH DIFFE RENTI AL/PL ATELE T immature cells FORENSIC INVESTIGATOR Not Available [facility] ([facility]) [address] [place], [address], 07/11/2024 03:08:49 07/08/19 25 07/08/2024 CBC WITH DIFFE RENTI AL/PL ATELE T neutrophils (absolute) 3.8 x10e3 /uL 1.4-7. 0 normal Not Available [facility] ([facility]) [address] [place], [address], 07/11/2024 03:08:49 07/08/19 25 07/08/2024 CBC WITH DIFFE RENTI AL/PL ATELE T lymphs (absolute) 0.8 x10e3 /uL 0.7-3. 1 normal Not Available [facility] ([facility]) [address] [place], [address], 07/11/2024 03:08:49 07/08/19 25 07/08/2024 CBC WITH DIFFE RENTI AL/PL ATELE T monocytes(ab solute) 0.6 x10e3 /uL 0.1-0. 9 normal Not Available [facility] ([facility]) [address] [place], [address], 07/11/2024 03:08:49 07/08/19 25 07/08/2024 CBC WITH DIFFE RENTI AL/PL ATELE T eos (absolute) 0.2 x10e3 /uL 0.0-0. 4 normal Not Available [facility] ([facility]) [address] [place], [address], 07/11/2024 03:08:49 07/08/19 25 07/08/2024 CBC WITH DIFFE RENTI AL/PL ATELE T baso (absolute) 0.1 x10e3 /uL 0.0-0. 2 normal Not Available [facility] ([facility]) [address] [place], [address], 07/11/2024 03:08:49 07/08/19 25 07/08/2024 CBC WITH DIFFE RENTI AL/PL ATELE T immature granulocytes 1 % not estab. Not Available [facility] ([facility]) [address] [place], [address], 07/11/2024 03:08:49 07/08/19 25 07/08/2024 CBC WITH DIFFE RENTI AL/PL ATELE T immature grans (abs) 0.0 x10e3 /uL 0.0-0. 1 Not Available [facility] ([facility]) [address] [facility], [place], [address], 07/11/2024 03:08:49 07/08/19 25 07/08/2024 CBC WITH DIFFE RENTI AL/PL ATELE T NRBC FORENSIC INVESTIGATOR Not Available [facility] ([facility]) [address] [facility], [place], [address], 07/11/2024 03:08:49 07/08/19 25 07/08/2024 CBC WITH DIFFE RENTI AL/PL ATELE T hematology comments: FORENSIC INVESTIGATOR Not Available [facility] ([facility]) [address] [facility], [place], [address], 07/11/2024 03:08:49 07/08/19 25 07/08/2024 COMP. METAB OLIC PANEL (14) glucose 123 mg/dL 70-99 above high normal Not Available [facility] ([facility]) [address] [place], [address], 07/11/2024 03:08:49 07/08/19 25 07/08/2024 COMP. METAB OLIC PANEL (14) BUN 14 mg/dL 6-24 normal Not Available [facility] ([facility]) [address] [place], [address], 07/11/2024 03:08:49 07/08/19 25 07/08/2024 COMP. METAB OLIC PANEL (14) creatinine 0.83 mg/dL 0.57-1 .00 normal Not Available [facility] ([facility]) [address] [place], [address], 07/11/2024 03:08:49 07/08/19 25 07/08/2024 COMP. METAB OLIC PANEL (14) eGFR 83 mL/mi n/1.7 3 >59 normal Not Available [facility] ([facility]) [address] [facility] [place], [address], 07/11/2024 03:08:49 07/08/19 25 07/08/2024 COMP. METAB OLIC PANEL (14) BUN/creatini ne ratio 17 9-23 normal Not Available [facility] ([facility]) [address] [facility], [address], 07/11/2024 03:08:49 07/08/19 25 07/08/2024 COMP. METAB OLIC PANEL (14) sodium 140 mmol/ L 134-14 4 normal Not Available [facility] ([facility]) [address] [facility], [place], [address], 07/11/2024 03:08:49 07/08/19 25 07/08/2024 COMP. METAB OLIC PANEL (14) potassium 4.0 mmol/ L 3.5-5. 2 normal Not Available [facility] ([facility]) [address] [facility], [address], 07/11/2024 03:08:49 07/08/19 25 07/08/2024 COMP. METAB OLIC PANEL (14) chloride 103 mmol/ L 96-106 normal Not Available [facility] ([facility]) [address] [facility], [address], 07/11/2024 03:08:49 07/08/19 25 07/08/2024 COMP. METAB OLIC PANEL (14) carbon dioxide, total 20 mmol/ L 20-29 normal Not Available [facility] ([facility]) [address] [facility], [address], 07/11/2024 03:08:49 07/08/19 25 07/08/2024 COMP. METAB OLIC PANEL (14) calcium 9.3 mg/dL 8.7-10 .2 normal Not Available [facility] ([facility]) [address] [facility] [place], [address], 07/11/2024 03:08:49 07/08/19 25 07/08/2024 COMP. METAB OLIC PANEL (14) protein, total 7.3 g/dL 6.0-8. 5 normal Not Available [facility] ([facility]) [address] [facility] [place], [address], 07/11/2024 03:08:49 07/08/19 25 07/08/2024 COMP. METAB OLIC PANEL (14) albumin 4.2 g/dL 3.8-4. 9 normal Not Available [facility] ([facility]) [address] [facility], [address], 07/11/2024 03:08:49 07/08/19 25 07/08/2024 COMP. METAB OLIC PANEL (14) globulin, total 3.1 g/dL 1.5-4. 5 Not Available [facility] ([facility]) [address] [facility] [place], [address], 07/11/2024 03:08:49 07/08/19 25 07/08/2024 COMP. METAB OLIC PANEL (14) bilirubin, total 0.2 mg/dL 0.0-1. 2 normal Not Available [facility] ([facility]) [address] [facility], [address], 07/11/2024 03:08:49 07/08/19 25 07/08/2024 COMP. METAB OLIC PANEL (14) alkaline phosphatase 129 IU/L 44-121 above high normal Not Available [facility] ([facility]) [address] [facility], [address], 07/11/2024 03:08:49 07/08/19 25 07/08/2024 COMP. METAB OLIC PANEL (14) AST (SGOT) 21 IU/L 0-40 normal Not Available [facility] ([facility]) [address] [facility], [address], 07/11/2024 03:08:49 07/08/19 25 07/08/2024 COMP. METAB OLIC PANEL (14) ALT (SGPT) 21 IU/L 0-32 normal Not Available [facility] ([facility]) [address] [place], [address], 07/11/2024 03:08:49 07/08/19 25 07/08/2024 LIPID PANEL cholesterol, total 175 mg/dL 100-19 9 normal Not Available [facility] ([facility]) [address] [place], [address], 07/11/2024 03:08:50 07/08/19 25 07/08/2024 LIPID PANEL triglyceride s 199 mg/dL 0-149 above high normal Not Available [facility] ([facility]) [address] [place], [address], 07/11/2024 03:08:50 07/08/19 25 07/08/2024 LIPID PANEL HDL cholesterol 47 mg/dL >39 normal Not Available [facility]) [address] [place], [address], 07/11/2024 03:08:50 07/08/19 25 07/08/2024 LIPID PANEL VLDL cholesterol sam 34 mg/dL 5-40 Not Available [facility] ([facility]) [address] [place], [address], 07/11/2024 03:08:50 07/08/19 25 07/08/2024 LIPID PANEL LDL chol calc ([facility]) 94 mg/dL 0-99 Not Available [facility]) [address] [place], [address], 07/11/2024 03:08:50 07/08/19 25 07/08/2024 LIPID PANEL LDL calc comment: FORENSIC INVESTIGATOR Not Available [facility] ([facility]) [address] [facility], [place], [address], 07/11/2024 03:08:50 07/08/19 25 07/08/2024 VITAM IN B12 AND FOLAT E vitamin B12 1523 pg/mL 232-12 45 above high normal Not Available [facility] ([facility]) [address] [facility], [place], [address], 07/11/2024 03:08:50 07/08/19 25 07/08/2024 VITAM IN B12 AND FOLAT E folate (folic acid), serum 6.6 NG/mL >3.0 normal A serum folat e murtaza ntrat ion of less than 3.1 ng/mL is consi dered to repre sent clini sam defic iency . Not Available [facility] ([facility]) [address] [facility], [place], [address], 07/11/2024 03:08:50 07/08/19 25 07/08/2024 HCV ANTIB AMBIKA CASCA DE(PC R/GEN O) HCV Ab Non Reacti ve non reacti ve Not Available [facility] ([facility]) [address] [facility], [place], [address], 07/11/2024 03:08:51 07/08/19 25 07/08/2024 HCV ANTIB AMBIKA CASCA DE(PC R/GEN O) interpretati on: Commen t Not infec eugenio with HCV unles s early or acute infec tion is suspe cted (whic h may be delay ed in an immun ocomp romis ed indiv idual ), or other evide nce exist s to indic ate HCV infec tion. Not Available [facility] ([facility]) [address] [place], [address], 07/11/2024 03:08:51 07/08/19 25 07/08/2024 TSH TSH 3.770 uIU/m L 0.450- 4.500 normal Not Available [facility] ([facility]) [address] [place], [address], 07/11/2024 03:08:51 07/08/19 25 07/08/2024 VITAM IN D, 25-HY DROXY vitamin D, 25-hydroxy 36.8 NG/mL 30.0-1 00.0 Vitam in D defic iency has been defin ed by the Insti tute of Medic ine and an Endoc rine Socie ty pract ice guide line as a level of serum 25-OH vitam in D less than 20 ng/mL (1,2) . The Endoc rine Socie ty went on to [facility] er defin e vitam in D insuf ficie ncy as a level betwe en 21 and 29 ng/mL (2). 1. IOM (Inst itute of Medic ine). 2010. Dieta ry refer ence intak es for calci um and D. Elizabeth gilman [place]: [facility] . 2. Shaye zee [place], Jolie dalton [place], Berkley off-F errar i FOSTER, et al. Evalu ation , treat ment, and preve ntion of vitam in D defic iency : an Endoc rine Socie ty clini sam pract ice guide line. JCEM. 2010; 96(7) :1911 -30. Not Available [facility] ([facility]) [address] [facility], [place], [address], 07/11/2024 03:08:51 07/08/19 25 07/09/2024 HIV AB/P2 4 AG WITH REFLE X HIV Ab/P24 Ag screen Non Reacti ve non reacti ve HIV-1 /HIV- 2 antib odies and HIV-1 p24 antig en were NOT detec eugenio. There is no labor atory evide nce of HIV infec tion. HIV Negat tessa Not Available [facility] ([facility]) [address] [facility], [place], [address], 07/11/2024 03:08:52 07/08/19 25 07/11/2024 ZINC, PLASM A OR SERUM zinc, plasma or serum 81 ug/dL 44-115 normal Detec tion Limit = 5 Not Available [facility] ([facility]) [address] [facility], [place], [address], 07/11/2024 03:08:52 07/08/19 25 07/13/2024 HEMOG LOBIN A1C hemoglobin A1C 6.8 % 4.8-5. 6 above high normal Predi abete s: 5.7 - 6.4 Diabe louann: >6.4 Glyce layla contr ol for adult s with diabe louann: <7.0 Not Available [facility] ([facility]) [address] [facility], [place], [address], 07/13/2024 23:07:38 07/08/19 25 07/13/2024 BRIJESH EN AUTHO RIZAT ION written authorizatio n Myriam t Brijesh en Autho rizat ion Recei anna. Autho rizat ion recei anna from [facility] Link Reque st on 07-13 Logge d by Giancarlo Dwyer an Not Available [facility] ([facility]) [address] [facility], [place], [address], 07/13/2024 23:07:39 08/05/19 25 08/04/2024 micro album in/cr eatin ine, mass ratio , urine Microalbumin 30 mg/L Not Available [facility] [address] [place], [address], 08/04/2024 13:39:48 08/05/19 25 08/04/2024 micro album in/cr eatin ine, mass ratio , urine Creatinine 200 mg/dL Not Available [facility] [address] [place], [address], 08/04/2024 13:39:48 08/05/19 25 08/04/2024 micro album in/cr eatin ine, mass ratio , urine Ratio <30 mg/g Not Available [facility] [address] [place] [address], [place], [address], 08/04/2024 13:39:48 12/09/19 25 12/08/2024 HbA1c (hemo globi n A1c), blood HbA1c 6.4 % Not Available [address], [address], 12/08/2024 13:05:20 12/09/19 25 12/08/2024 micro album in/cr eatin ine, mass ratio , urine Microalbumin 30 mg/L Not Available [address], [address], 12/08/2024 13:05:26 12/09/19 25 12/08/2024 micro album in/cr eatin ine, mass ratio , urine Creatinine 200 mg/dL Not Available [address], [place], [address], 12/08/2024 13:05:26 12/09/19 25 12/08/2024 micro album in/cr eatin ine, mass ratio , urine Ratio <30 mg/g Not Available [address], [address], 12/08/2024 13:05:26 Result Notes None recorded. Problems Name Problem SNOMED Code Status Onset Date Resolution Date Notes Provider Name and Address Organization Details Recorded Time Hyperlipide michael 74085381 Active 2024 SHARMILA Batres [address] [place] [address], [address], [facility] [employer] 13:20:52 Depressive disorder 43196071 Active 2024 SHARMILA Batres [address] [place] [address], [address] 8, [facility] [employer] 13:20:40 Essential hypertensio n 15707064 Active 2024 SHARMILA Batres [address] [place] [address], 1955[address] 8, [employer] 13:20:42 Vitamin D deficiency 65478167 Active 2024 SHARMILA Batres [address] [place] [address], [address] 8, [employer] 13:20:50 Congestive heart failure 90270455 Active 2024 SHARMILA Batres [address] [place] [address], [address] 8, [employer] 13:20:35 Irritable bowel syndrome 60304289 Active 2024 SHARMILA Batres [address] [place] [address], 688[address]-397 8, [employer] 13:20:54 Coronary atheroscler osis 413380344 Active 2024 SHARMILA Batres [address] [place] [address], [address] 8, [employer] 13:20:37 Gastroesoph ageal reflux disease 425276142 Active 2024 SHARMILA Batres [address] [place] [address], 810[address] 8, [employer] 13:20:47 Aphthous ulcer of mouth 604025597 Completed 202408/04/2024 SHARMILA Batres [address] [place] [address], 97[address] 8, [employer] 13:20:58 Diabetes mellitus 66640640 Active 2024 SHARMILA Batres [address] [place] [address], [address] 8, [employer] 13:20:33 Nausea and vomiting 84657356 Active 2024 SHARMILA Batres [address] [place] [address], [address]40[address] 8, [place] [facility]. 10:11:57 Problem Notes None recorded. Procedures Surgical History Date Name Laterality Status Provider Name and Address Organization Details Recorded Time 08/05/19 Diabetic Foot Screen completed SHARMILA Batres [address] [place] [address], [phone], [employer] 08/04/2024 13:37:40 05/18/19 Most Recent Mammogram completed [facility]. 06/09/2024 13:43:37 Caesarean Section completed [facility]. 06/09/2024 13:43:38 Hysterectomy completed [facility]. 06/09/2024 13:43:38 Tubal Ligation completed [facility]. 06/09/2024 13:43:38 Total Hysterectomy completed [facility]. 06/09/2024 13:43:38 Imaging Results None recorded. Procedure Notes None recorded. Medical Equipment None Reported. Allergies Allergen ID Allergen Name Allergen Category Reaction Reaction Severity Criticality Documentation Date Start Date Code Code System Note Provider Name and Address Organization Details Recorded Time 70498 Product containin g penicilli n (product) medicatio n itching rash Not available Not available Not available 06/09/2024 26061 8001 SNOMED [employer] [employer] 13:43:37 11945 lisinopri l medicatio n cough Not available Not available 06/09/2024 30871 RxNorm [facility]onda [employer] 13:43:58 40848 metformin medicatio n diarrhea Not available Not available 08/04/2024 6809 RxNorm Alie [facility] [employer] 13:13:30 Medications Name Sig Start Date Stop Date Status Note LastModified by Organization Details LastModified Time bupropion HCl SR 150 mg tablet,12 hr sustained-r elease TAKE 1 TABLET BY MOUTH 2 TIMES A DAY FOR DEPRESSIO N active Not Available Not Available No t Available atorvastati n 80 mg tablet TAKE ONE TABLET BY MOUTH AT BEDTIME 07/07 completed Not Available Not Available Not Available carvedilol 25 mg tablet TAKE 1 TABLET BY MOUTH 2 TIMES A DAY active Not Available Not Available No t Available atorvastati n 10 mg tablet TAKE 1 TABLET BY MOUTH AT BEDTIME active Not Available Not Available No t Available FreeStyle Lancets 28 gauge USE DIRECTED TWICE DAILY active Not Available Not Available No t Available famotidine 40 mg tablet TAKE 1 TABLET BY MOUTH 2 TIMES A DAY NEEDED FOR HEARTBURN active Not Available Not Available No t Available clopidogrel 75 mg tablet TAKE 1 TABLET BY MOUTH ONCE A DAY active Not Available Not Available No t Available sulfamethox azole 800 mg-trimetho prim 160 mg tablet TAKE 1 TABLET BY MOUTH 2 TIMES A DAY FOR 10 DAYS 12/08 completed Not Available Not Available Not Available spironolact one 25 mg tablet TAKE 1 TABLET BY MOUTH ONCE A DAY active Not Available Not Available No t Available ondansetron 8 mg disintegrat ing tablet DISSOLVE 1 TABLET ON THE TONGUE 3 TIMES A DAY NEEDED FOR NAUSEA AND VOMITING 2024 active Not Available Not Available Not Avai lable triamcinolo ne acetonide 0.1 % dental paste APPLY TO AFFECTED FOUR TIMES DAILY NEEDED 08/04 completed Not Available Not Available Not Available pantoprazol e 40 mg tablet,matthew yed release TAKE 1 TABLET BY MOUTH 2 TIMES A DAY WITH FOOD active Not Available Not Available No t Available alcohol swabs USE twice a DAY FOR diabetes testing active Not Available Not Available No t Available hydrochloro thiazide 25 mg tablet TAKE 1 TABLET BY MOUTH ONCE A DAY FOR BLOOD PRESSURE active Not Available Not Available No t Available metformin ER 500 mg tablet,exte nded release 24 hr TAKE 1 TABLET BY MOUTH ONCE A DAY 08/04 completed Not Available Not Available Not Available cholecalcif jose rafael (vitamin D3) 125 mcg (5,000 unit) capsule TAKE 1 CAPSULE BY MOUTH ONCE A DAY active Not Available Not Available No t Available dicyclomine 10 mg capsule TAKE 1 CAPSULE BY MOUTH 3 TIMES A DAY NEEDED FOR ABDOMINAL CRAMPING active Not Available Not Available No t Available valsartan 160 mg tablet TAKE 1 TABLET BY MOUTH TWICE DAILY FOR HIGH BLOOD PRESSURE active Not Available Not Available No t Available mesalamine 1,000 mg rectal suppository INSERT 1 SUPPOSITO RY RECTALLY 2 TIMES A DAY FOR 30 DAYS. THEN 1 SUPPOSITO RY NIGHTLY DIRECTED. 12/08 completed Not Available Not Available Not Available chlorhexidi ne gluconate 0.12 % mouthwash Place 15 mL twice a day by mucous membrane route for 10 days. 09/07 completed Not Available Not Available Not Available FreeStyle Lite Meter kit USE DIRECTED active Not Available Not Available No t Available FreeStyle Lite Strips USE DIRECTED TWICE DAILY active Not Available Not Available No t Available GaviLyte-G 236 gram-22.74 gram-6.74 gram-5.86 gram oral solution MIX AND DRINK 240 ML BY MOUTH EVERY 10 MINUTES AT 6PM THE DAY BEFORE SURGERY UNTIL HALF GONE. THEN DRINK REMAINDER 5-6 HOURS BEFORE EXAM 12/08 completed Not Available Not Available Not Available Orabase (benzocaine ) 20 % mucosal paste Take 1 applicati on 4 times a day by mucous route as needed for 30 days. 08/04 completed Not Available Not Available Not Available Ozempic 0.25 mg or 0.5 mg (2 mg/1.5 mL) subcutaneou s pen injector Inject 0.25 mg every week by subcutane ous route for 28 days, for diabetes. 09/07 completed Not Available Not Available Not Available Ozempic 1 mg/dose (4 mg/3 mL) subcutaneou s pen injector INJECT 1 MG SUBCUTANE OUSLY ONCE WEEKLY active Not Available Not Available No t Available Ozempic 0.25 mg or 0.5 mg (2 mg/3 mL) subcutaneou s pen injector inject 0.5 MG SUBCUTANE OUSLY ONCE WEEKLY FOR 28 DAYS active Not Available Not Available No t Available Vitals Date Recorded Body height Body mass index (BMI) Body weight Body temperature Heart rate Oxygen saturation Oxygen saturation in Arterial blood by Pulse oximetry Systolic And Diastolic Systolic And Diastolic Systolic And Diastolic Provider Name and Address Organization Details Last Updated DateTime 165.1 cm 33.3 kg/m2 21145.1 7 g 98 [degF] 91 /min 95 % 95 % 167/101 mm[Hg] 165/100 mm[Hg] 157/100 mm[Hg] [employer] 5 13:52:48 Date Recorded Body height Body mass index (BMI) Body weight Heart rate Oxygen saturation Oxygen saturation in Arterial blood by Pulse oximetry Systolic And Diastolic Systolic And Diastolic Provider Name and Address Organization Details Last Updated DateTime 5 165.1 cm 33.5 kg/m2 89049.8 7 g 87 /min 96 % 96 % 166/105 mm[Hg] 163/103 mm[Hg] Shalonda [employer] 5 12:58:50 Date Recorded Systolic And Diastolic Provider Name and Address Organization Details Last Updated DateTime 07/07/2024 160/100 mm[Hg] [employer] 07/07/2024 13:41:24 Date Recorded Body height Body mass index (BMI) Body weight Oxygen saturation Oxygen saturation in Arterial blood by Pulse oximetry Heart rate Body temperature Systolic And Diastolic Provider Name and Address Organization Details Last Updated DateTime 5 165.1 cm 33 kg/m2 70035.0 1 g 96 % 96 % 94 /min 98 [degF] 128/80 mm[Hg] [employer] 5 13:09:13 Date Recorded Body height Body mass index (BMI) Body weight Oxygen saturation Oxygen saturation in Arterial blood by Pulse oximetry Heart rate Body temperature Systolic And Diastolic Provider Name and Address Organization Details Last Updated DateTime 5 165.1 cm 31.8 kg/m2 70276.8 6 g 97 % 97 % 99 /min 98.3 [degF] 124/84 mm[Hg] [employer] 5 13:44:52 Date Recorded Body height Body mass index (BMI) Body weight Oxygen saturation Oxygen saturation in Arterial blood by Pulse oximetry Heart rate Body temperature Systolic And Diastolic Provider Name and Address Organization Details Last Updated DateTime 5 165.1 cm 31.3 kg/m2 58305.0 8 g 98 % 98 % 94 /min 98 [degF] 110/76 mm[Hg] [employer] 5 13:14:01 Social History Question Answer Notes LastModified by Organization Details LastModified Time Tobacco Smoking Status Former Smoker Shalonda franco [facility] [employer], [facility]. 06/09/2024 13:43:38 Do You Have An Advance Directive? No [email or web address] Information not available 06/09/2024 Is Your Home Air Conditioned? Yes [email or web address] Information not available 06/09/2024 If You Are , What Was Your Level Of Alcohol Consumption Prior To ? None [email or web address] Information not available 06/09/2024 Do You Wear A Helmet When Biking? No [email or web address] Information not available 06/09/2024 Are You Blind Or Do You Have Difficulty Seeing? No [email or web address] Information not available 06/09/2024 What Is Your Level Of Caffeine Consumption? Occasional [email or web address] Information not available 06/09/2024 What Type Of Sub Acute Care Nurse Do You Use? [employer] [email or web address] Information not available 06/09/2024 In The 14 Days Before Symptom Onset, Have You Had Close Contact With A Laboratory-confi rmed COVID-19 While That Case Was Ill? No [email or web address] Information not available 06/09/2024 In The 14 Days Before Symptom Onset, Have You Had Close Contact With A Person Who Is Under Investigation For COVID-19 While That Person Was Ill? No [email or web address] Information not available 06/09/2024 Have You Been To An Area Known To Be High Risk For COVID-19? No [email or web address] Information not available 06/09/2024 Are You Deaf Or Do You Have Serious Difficulty Hearing? No [email or web address] Information not available 06/09/2024 What Type Of Diet Are You Following? REGULAR [email or web address] Information not available 06/09/2024 What Is The Highest Grade Or Level Of School You Have Completed Or The Highest Degree You Have Received? [id number] [email or web address] Information not available 06/09/2024 How Many Days Of Moderate To Strenuous Exercise, Like A Brisk Walk, Did You Do In The Last 7 Days? 3 [email or web address] Information not available 06/09/2024 Have There Been Any Changes To Your Family Or Social Situation? No [email or web address] Information not available 06/09/2024 When Did You Quit Smoking? 1-5yearssincelshonna wright 2021 Stop Date Information not available 08/04/2024 Are There Any Guns Present In Your Home? No [email or web address] Information not available 06/09/2024 Which Of Your Hands Is Dominant? Right [email or web address] Information not available 06/09/2024 What Is Your Home Situation? Mother [email or web address] Information not available 06/09/2024 Do You Have A Medical Power Of Dentofacial Orthopedics Dentist? No [email or web address] Information not available 06/09/2024 What Was The Date Of Your Most Recent Tobacco Screening? 12/08/2024 Information not available 12/08/2024 What Is Your Current Pack Years? 10packyears [email or web address] Information not available 06/09/2024 Do You Have Any Pets? No [email or web address] Information not available 06/09/2024 What Is Your Relationship Status? [email or web address] Information not available 06/09/2024 Have You Repeated Any Grades? No [email or web address] Information not available 06/09/2024 Do You Use Your Seat Belt Or Car Seat Routinely? Yes Information not available 06/09/2024 Are You Sexually Active? No [email or web address] Information not available 06/09/2024 Do You Have Any Siblings? Yes [email or web address] Information not available 06/09/2024 Do You Have Smoke And Carbon Monoxide Detectors In Your Home? Yes Information not available 06/09/2024 At What Age Did You Start Smoking Tobacco? 14 [email or web address] Information not available 06/09/2024 Are You Passively Exposed To Smoke? Yes Information not available 06/09/2024 Are There Any Smokers In Your House? Yes [email or web address] Information not available 06/09/2024 Do You Use Sunscreen Routinely? Yes [email or web address] Information not available 06/09/2024 Has Tobacco Cessation Counseling Been Provided? No Information not available 08/04/2024 How Many Years Have You Smoked Tobacco? 25 [email or web address] Information not available 06/09/2024 Have You Recently Traveled Abroad? No [email or web address] Information not available 06/09/2024 Do You Have Difficulty Walking Or Climbing Stairs? No [email or web address] Information not available 06/09/2024 Are You Currently In School? No Information not available 08/04/2024 What Contraceptive Method Was Reported At Start Of This Visit? Female Sterilization Information not available 08/04/2024 Do You Have Any Dietary Restrictions? No Information not available 08/04/2024 Sex: Unknown Functional Status Question Answer Note LastModified by Organizat ion Details LastModified Time Do you use any illicit or recreational drugs? No [email or web address] Information not available 06/09/2024 Do you or have you ever used any other forms of tobacco or nicotine? No Information not available 08/04/2024 What is your level of alcohol consumption? None [email or web address] Information not available 06/09/2024 Are you currently employed? No [email or web address] Information not available 06/09/2024 Do you have transportation difficulties? No Information not available 06/09/2024 Are you able to walk independently without assistance or assistive devices? [email or web address] Information not available 06/09/2024 Do you have difficulty doing errands alone? No Information not available 06/09/2024 Are you able to care for yourself independently? Yes [email or web address] Information not available 06/09/2024 Do you have difficulty dressing, bathing, grooming, or toileting? No [email or web address] Information not available 06/09/2024 What is your exercise level? Occasional [email or web address] Information not available 06/09/2024 Mental Status Question Answer Note LastModified by Organizat ion Details LastModified Time Do you feel stressed (tense, restless, nervous, or anxious, or unable to sleep at night)? [id number] Information not available 08/04/2024 Do you have difficulty concentrating, remembering or making decisions? Yes [email or web address] Information no t available 06/09/2024 Are you or have you been involved with bullying? No [email or web address] Information not available 06/09/2024 Family History Relationship Description Onset Age of this Age Resolved Age Notes LastModified by Organization Details LastModified Time Mother Anxiety disorder [email or web address] Not available 2024 13:43:37 Mother Arthritis [email or web address] Not availab le 06/09/2024 13:43:37 Mother Hypertensive disorder Not available 2024 13:43:37 Maternal Grandmother Malignant neoplasm of breast [email or web address] Not available 2024 13:43:37 Maternal Grandmother Alzheimer's disease [email or web address] Not available 2024 13:43:37 Maternal Grandmother Arthritis [email or web address] Not available 13:43:37 Maternal Grandmother Hypertensive disorder Not available 2024 13:43:37 Sister Anxiety disorder [email or web address] Not available 2024 13:43:37 Maternal Grandfather Hypertensive disorder [email or web address] Not available 2024 13:43:37 Father Hypertensive disorder [email or web address] Not available 2024 13:43:37 Medical History Condition Response Anxiety Disorder Y ADD/ADHD Y Gout Y Hospitalizations N Acid Reflux (GERD) Y Emergency room visit since last appointm ent. N Cancer Y Hypertension Y Depression Y Gynecological History Statement/Question Response Menses Monthly N HPV Vaccine N Date of Last Pap Smear Current Control Method Hysterectom y Most Recent Mammogram 05/17/2018 Age at First Child 20 Obstetrics History GPAL:G 2 P 2 0 0 2 Type Value Multiple Births 0 Full Term 2 Induced 0 Spontaneous 0 Premature 0 Living 2 Ectopics 0 Total 2 Immunizations Vaccine Type Date Status Note Provider Nam e and Address Organization Details Recorded Time Influenza, split virus, trivalent, 5 completed Alie Vice null, [facility] 12/08/2024 14:43:22 Pneumococcal conjugate PCV21, polysaccharide [id number] conjugate, PF 5 completed Alie Vice null, [place] [employer] 12/08/2024 14:43:23 Td(adult) unspecified formulation 8 completed Not Available [facility] 12/08/2024 12:51:35 Influenza, split virus, quadrivalent, PF 4 completed Not Available [facility] 12/08/2024 12:51:35 Past Encounters Encounter ID Performer Location Encounter Start Date Encounter Closed Date Diagnosis/Indication Diagnosis SNOMED-CT Code Diagnosis ICD10 Code Diagnosis IMO Codes Diagnosis Note [id number] SHARMILA Batres [facility] [address] [place] [address] 06/09/2024 13:11:55 06/09/2024 14:34:03 Hyperlipidemia 80684895 E78.5 Depressive disorder 3548 9007 F32.A Essential hypertension 36480702 I10 Vitamin D deficiency 347 64074 E55.9 Coronary atherosclerosis 290993014 I25.10 Stented co ronary artery 294769286 Z95.5 Gastroesop hageal reflux disease 406305615 K21.9 Congestive heart failure 10318447 I50.9 Irritable bowel syndrome 58158322 K58.9 Aphthous u lcer of mouth 758557685 K12.0 [id number] Nikki Almeida [address] [address] 07/07/2024 12:37:30 07/07/2024 13:37:51 Aphthous ulcer of mouth 930907425 K12.0 Essential hypertension 60306308 I10 Add HCTZRechec k BPAnevilleeagayle has appointmen t with cardiology next week HIV screening 548113205 Z11.4 Hepatitis C screening 41 0306059 Z11.59 [id number] Nikki Almeida [address] [address] 08/04/2024 12:46:53 08/04/2024 13:39:24 Screening mammography 28175747 Z12.31 43164195 Diabetes mellitus 270566 09 E11.9 Body mass index 30+ - obesity 115314593 Z68.33 653297 [id number] Nikki Almeida [address] [address] 09/07/2024 13:34:03 09/07/2024 13:56:30 Congestive heart failure 15083076 I50.9 Coronary atherosclerosis 057703719 I25.10 Depressive disorder 3548 9007 F32.A Diabetes mellitus 927995 09 E11.9 Essential hypertension 32941913 I10 Add HCTZRechec k Claueagayle has appointmen t with cardiology next week Gastroesop hageal reflux disease 097955574 K21.9 Hyperlipidemia 04564326 E78.5 Irritable bowel syndrome 77448676 K58.9 Vitamin D deficiency 347 64018 E55.9 Stented co ronary artery 906416959 Z95.5 [id number] Nikki Almeida [address] [address] 12/08/2024 12:50:21 12/08/2024 13:44:33 Type 2 diabetes mellitus 52061930 E11.9 30639739 Depressive disorder 3548 9007 F32.A Requires i nfluenza virus vaccination 246778282 Z23 4162974 Requires v accination against Streptococcus pneumoniae 3638392437 Z23 390953 History of well-differentiated neuroendocrine tumor of rectum 9672591861 Z85.506 [id number] Followed by Health Concerns Section Related Observation LastModified by Organization Detai ls LastModified Time None Recorded Concern Status LastModified by Organization Details LastModified Time None Recorded Advance Directives Directive N: Payers Insurance Date Sequence Insurance Name Policy Number Policy Langston Covered Member ID Langston Member ID Guarantor Name 12/15/[address] [facility] (MEDICAID REPLACEMENT - HMO) [facility] Viktoriya Hoang [id number] Viktoriya Hoang Notes Date Note Type Note Provider Name and Address Organization Details Recorded Time 06/09/2024 text/html ROS as noted in the HPI Patient presents to establish care.History HLD, depression, HTN, Vitamin D deficiency, GERD,States that she is doing wellHistory rectal cancer, AMI X 2 (7 stents) SHARMILA Batres [address] [place], [address], [employer] 06/09/2024 14:40:58 07/07/2024 text/html ROS as noted in the HPI Still has sore mouth. Oncologist thought it may be related to stress.Blood pressure is elevated today. Denies headache, chest pain, vertigo, dsypnea.Has appointment with cardiology but not until next week. SHARMILA Batres [address] [place], [address], [employer] 07/09/2024 16:08:31 08/04/2024 text/html ROS as noted in the HPI Patient presents for followup. Recently diagnosed with diabetes. She states that her glucometer stopped working. She is not able to tolerate Metformin. It is causing diarrhea. SHARMILA Batres [address] [place], [address], [employer] 08/04/2024 16:13:35 09/07/2024 text/html ROS as noted in the HPI Patient presents for followup. History of CHF, CAD, DM, HTN, HLD, GERD. States she is diong well. Medications working well and denies side effects. SHARMILA Batres [address] [place], [address], [employer] 09/08/2024 12:43:43 12/08/2024 text/html ROS as noted in the HPI Patient presents for followup.Blood pressure has been running low and has not felt well.Buproprion was accidentally sent QD instead of BID.Had skin cancer removed from left tate and has had trouble getting it to heal.Had colonoscopy at a few weeks ago. He could not advance the scope very far and is ordering CT. 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 SHARMILA Batres [address] [place], [address], [employer] 12/08/2024 16:17:08 OBGyn Episode No OBEpisode recorded.
--- OUTSIDE RECORDS SUMMARY | 2024-12-29 21:32 | XMS_ITS | Encounter Summary ---
Author Organization Healthcare Address [address] 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 [place] [address] Eladio Kaur MD [address] [place] [address] documented as of this encounter Visit Diagnoses [...] documented as of this encounter Care Teams Word Processing Specialist Relationship Specialty Start Date End Date Nikki Almeida PA [address] [place] [address] PCP - General 08/30/24 Ramirez Greer MD [address] [facility] [address] [place] [address] Surgeon Colon and Rectal Surgery 01/31/21 Eladio Kaur MD [address] [facility] [address] [place] [address] Radiation Oncologist Radiation Oncology 02/15/21 Wesley Araujo MD [address] [place] [address] Fellow Hematology and Oncology 03/02/22 documented as of this encounter
--- OUTSIDE RECORDS SUMMARY | 2024-12-29 21:32 | XMS_ITS | Encounter Summary ---
Author Organization Healthcare Address [address] 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 [place] [address] Eladio Kaur MD [address] [place] [address] documented as of this encounter Visit Diagnoses [...] documented as of this encounter Care Teams Collection Systems Modeler Relationship Specialty Start Date End Date Nikki Almeida PA [address] [place] [address] PCP - General 08/30/24 Ramirez Greer MD [address] [facility] [address] [place] [address] Surgeon Colon and Rectal Surgery 01/31/21 Eladio Kaur MD [address] [facility] [address] [place] [address] Radiation Oncologist Radiation Oncology 02/15/21 Wesley Araujo MD [address] [place] [address] Fellow Hematology and Oncology 03/02/22 documented as of this encounter
--- OUTSIDE RECORDS SUMMARY | 2024-12-29 21:32 | XMS_ITS | Encounter Summary ---
Author Organization Healthcare Address [address] 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 [place] [address] Eladio Kaur MD [address] [place] [address] documented as of this encounter [...] documented as of this encounter Care Teams Radiation Protection Specialist Relationship Specialty Start Date End Date Nikki Almeida PA [address] [place] [address] PCP - General 08/30/24 Ramirez Greer MD [address] [place] [address] Surgeon Colon and Rectal Surgery 01/31/21 Eladio Kaur MD [address] [place] [address] Radiation Oncologist Radiation Oncology 02/15/21 Wesley Araujo MD [address] [place] [address] Fellow Hematology and Oncology 03/02/22 documented as of this encounter
--- OUTSIDE RECORDS SUMMARY | 2024-12-29 21:32 | XMS_ITS | Encounter Summary ---
Author Organization Healthcare Address [address] [place] [address] Care Team Providers Care Bread Slicer Machine Name Role Phone Ramirez Greer MD Unavailable [phone] Eladio Kaur MD Unavailable [phone] Wesley Araujo MD Unavailable [phone] Nikki Almeida Primary Care Provider [phone] Reason for Visit * Reason Onset Date Comments Calling for fax # 10/15/2024 Calling for Fa x #Calling back Encounter Details Date Type Department Care Team (Late st Contact Info) Description 10/15/2024 Telephone [place] [facility] [address] [place] [address] Sheryl Hernandez, [facility] Calling for fax # (Calling for Fax #/Calling back ) Social History Tobacco Use Types Packs/Day Years [...] 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 Davenport's office to see if pt seen there and get office fax. Something happened to call. I had to sam back, was transferred to staff I was talking with and no answer. I looked at Web Siteand found fax # of [phone] via Right Fax asking for clearance on the Plavix * Telephone Encounter - Sheryl Hernandez RN - 10/15/2024 10:46 AM EDT ----- Message from SHARMILA Zelaya sent at 10/08/2024 10:34 AM EDT ----- Good morning. Dr. Carreno, I have ordered a colonoscopy with you for Viktoriya she is having some bleeding, last full cscope 2022. Had flex sig last yr. I am having her resume mesalamine supp for radiation proctitis. Does she need a follow up appt with you in Multi D? I will ask our [facility] staff to contact Dr. Davenport at [facility] cardiology for clearance to hold plavix for procedure and clearance for anesthesia. Thanks, Shaneka DOLL. documented in this encounter Plan of Treatment Upcoming Encounters Date Type Department Care Team (Late st Contact Info) Description 03/15/2025 10:00 AM EST Appointment [facility] G Radiology [address] [place] [address] 03/19/2025 1:40 PM EST Office Visit [place] [facility] [address] [place] [address] Shaneka Hale PA [address] [place] [address] 06/21/2025 2:00 PM EDT Appointment [facility] CC Radiation [id number] [place] [address] Eladio Kaur MD [address] [place] [address] documented as of this encounter Visit Diagnoses Not on filedocumented in this encounter Additional Health Concerns Assessment Noted Time PHQ-9 Depression Total Score: 4 10/09/19 10:09 AM EDT A fall risk assessment has been complete d for the patient 10/12/2024 2:15 PM EDT A Body Mass Index follow-up plan has been documented for the patient 10/08/2024 11:26 AM EDT documented as of this encounter Care Teams Bread Slicer Machine Relationship Specialty Start Date End Date Nikki Almeida PA [address] [place] [address] PCP - General 08/30/24 Ramirez Greer MD [address] [place] [address] Surgeon Colon and Rectal Surgery 01/31/21 Eladio Kaur MD [address] [facility] [address] [place] [address] Radiation Oncologist Radiation Oncology 02/15/21 Wesley Araujo MD [address] [place] [address] Fellow Hematology and Oncology 03/02/22 documented as of this encounter
--- OUTSIDE RECORDS SUMMARY | 2024-12-29 21:32 | XMS_ITS | Encounter Summary ---
Author Organization Healthcare Address [address] 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 [place] [address] Eladio Kaur MD [address] [place] [address] documented as of this encounter [...] documented as of this encounter Care Teams Va Underwriter Relationship Specialty Start Date End Date Nikki Almeida PA [address] [place] [address] PCP - General 08/30/24 Ramirez Greer MD [address] [place] [address] Surgeon Colon and Rectal Surgery 01/31/21 Eladio Kaur MD [address] [place] [address] Radiation Oncologist Radiation Oncology 02/15/21 Wesley Araujo MD [address] [place] [address] Fellow Hematology and Oncology 03/02/22 documented as of this encounter
--- OUTSIDE RECORDS SUMMARY | 2024-12-29 21:32 | XMS_ITS ---
Author Organization [facility] Address [address] [place] [address] Care Team Providers Care Vamp Marker Name Role Phone Ramirez Greer MD Unavailable [phone] Eladio Kaur MD Unavailable [phone] Wesley Araujo MD Unavailable [phone] Nikki Almeida Primary Care Provider [phone] Active Problems Problem Noted Date Diagnosed Date [...] (02/01/2022): Added automatically from request for surgery [id number] Elevated liver enzymes 01/29/2022 Hepatic steatosis 01/29/2022 Tobacco use disorder 06/01/2021 Skin lesion of left upper extremity 06/01/2021 Overview (06/01/2021): Added automatically from request for surgery [id number] Exercise tolerance finding 06/01/2021 Overview (12/30/2023): Can [...] Hand pain 03/07/2017 11/23/2022 Hypertension 03/07/2017 11/23/2022 Current Treatment and Therapy Plans No current plan information found. Past Treatment and Therapy Plans Oncology Treatment Plan Name Start Date Discontinue Date Treatment Medications Discontinue Reason Plan Provider Cycles Modified [place]: Capecitabine / MitoMYcin Every 28 Days + XRT 2 11/24/2021 capecitabine (Xeloda)mitoMYc in (Mutamycin) Therapy Complete Leobardo Meier MD 2 of 2 cycles started Current Radiation Episodes * IMRT: Midline RectumOverview* First Treatment Date Latest Treatment Date Treatment Site Technique Goal Episode Provider 03/28/2021 05/08/2021 Midline Rectum IMRT Curative * Linked Problems Malignant tumor of anorectal junction Treatment Courses* Course C1 03/28/2021 - 05/08/2021 Treatment Period Fraction Dose Fractions Total Dose Plans Planned Pelvisnodes 03/28/2021 - 05/08/2021 200 cGy 24 / 25 5,000 cGy Reference Points Delivered Pelvis1 03/28/2021 - 05/08/2021 4,800 cGy Lifetime Dose Tracking * Chemical Lifetime Dose Automatic Entry Manual Entr y mitoMYcin 19.264 mg/m2 (39.2 mg) 19.264 mg/m2 (39.2 mg) 0 mg/m2 (0 mg) Fluoro Time 0.3 minutes 0.3 minutes 0 minutes Air Kerma 14 mGy 14 mGy 0 mGy Air Kerma Area Product 333.02 Gym 333.02 Gym 0 Gym Resolved Problems Problem Noted Date Diagnosed Date Resolved Date Second hand smoke exposure 12/14/2021 0 12/06/2024
--- OUTSIDE RECORDS SUMMARY | 2024-12-29 21:32 | XMS_ITS | Encounter Summary ---
Author Organization Healthcare Address [address] [place] [address] Care Team Providers Care Dx Board Operator Name Role Phone Ramirez Greer MD Unavailable [phone] Eladio Kaur MD Unavailable [phone] Wesley Araujo MD Unavailable [phone] Nikki Almeida Primary Care Provider [phone] Reason for Referral * Imaging (Routine) - Pending Review Specialty Diagnoses / Procedures Referred By Contac t Referred To Contact Radiology Diagnoses Anal squamous cell carcinoma Procedures CT Abdomen Pelvis w IV Contrast Ramirez Greer MD [address] [address] Phone: tel: fax: Referral ID Status Reason Start Date Expiration Date V isits Requested Visits Authorized [id number] Pending Review 11/30/2024 06/01/2026 1 1 Encounter Details Date Type Department Care Team (Latest Contact Info) Description 11/30/2024 Orders Only [facility] [address] [place] [address] Ramirez Greer MD [address] [address] Anal squamous cell carcinoma (Primary Dx) Social History Tobacco Use Types [...] 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 [place] [address] Eladio Kaur MD [address] [place] [address] Scheduled Orders Name Type Priority Associated Diagnoses Orde r Schedule CT Abdomen Pelvis w IV Contrast Imaging Routine Anal squamous cell carcinoma Expected: 03/01/2025 (Approximate), Expires: 06/03/2026 documented as of this encounter Visit Diagnoses Diagnosis Anal squamous cell carcinoma- Primary Malignant neoplasm of anus, unspecified site documented in this encounter Additional Health Concerns Assessment Noted Time PHQ-9 Depression Total Score: 4 10/09/19 25 10:09 AM EDT A fall risk assessment has been complete d for the patient 11/03/2024 10:08 AM EDT A Body Mass Index follow-up plan has been documented for the patient 11/26/2024 11:58 AM EDT documented as of this encounter Care Teams Dx Board Operator Relationship Specialty Start Date End Date Nikki Almeida PA [address] [facility] [address] PCP - General 08/30/24 Ramirez Greer MD [address] [facility] [address] [place] [address] Surgeon Colon and Rectal Surgery 01/31/21 Eladio Kaur MD [address] [facility] [address] [place] [address] Radiation Oncologist Radiation Oncology 02/15/21 Wesley Araujo MD [address] [place] [address] Fellow Hematology and Oncology 03/02/22 documented as of this encounter
--- OUTSIDE RECORDS SUMMARY | 2024-12-29 21:32 | XMS_ITS | Encounter Summary ---
Author Organization Healthcare Address [address] 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 Not on file documented as of this encounter Miscellaneous Notes * Telephone Encounter - Viridiana Gomes - 11/26/2024 2:43 PM EDT ----- Message from SHARMILA Zelaya sent at 11/26/2024 2:36 PM EDT ----- RTC via Sat-sat after cscope (can take REMEDY DEVELOPER spot but please book full 40 ) ----- Message ----- From: Ramirez Greer MD Sent: 11/23/2024 10:15 AM EDT To: SHARMILA Saeed documented in this encounter Plan of Treatment Upcoming Encounters Date Type Department Care Team (Late st Contact Info) Description 03/15/2025 10:00 AM EST Appointment [facility] G Radiology [address] [place] [address] 03/19/2025 1:40 PM EST Office Visit [place] [facility] [address] [place] [address] Shaneka Hale PA [address] [place] [address] 06/21/2025 2:00 PM EDT Appointment [facility] CC Radiation [id number] [place] [address] Eladio Kaur MD [address] [place] [address] documented as of this encounter Visit Diagnoses [...] documented as of this encounter Care Teams Hogshead Builder Relationship Specialty Start Date End Date Nikki Almeida PA [address] [place] [address] PCP - General 08/30/24 Ramirez Greer MD [address] [facility] [address] [place] [address] Surgeon Colon and Rectal Surgery 01/31/21 Eladio Kaur MD [address] [facility] [address] [place] [address] Radiation Oncologist Radiation Oncology 02/15/21 Wesley Araujo MD [address] [place] [address] Fellow Hematology and Oncology 03/02/22 documented as of this encounter
--- OUTSIDE RECORDS SUMMARY | 2024-12-29 21:32 | XMS_ITS | Encounter Summary ---
Author Organization Healthcare Address [address] 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 [place] [address] Eladio Kaur MD [address] [place] [address] documented as of this encounter [...] documented as of this encounter Care Teams Carton Wrapper Relationship Specialty Start Date End Date Nikki Almeida PA [address] [place] [address] PCP - General 08/30/24 Ramirez Greer MD [address] [place] [address] Surgeon Colon and Rectal Surgery 01/31/21 Eladio Kaur MD [address] [place] [address] Radiation Oncologist Radiation Oncology 02/15/21 Wesley Araujo MD [address] [place] [address] Fellow Hematology and Oncology 03/02/22 documented as of this encounter
--- OUTSIDE RECORDS SUMMARY | 2024-12-29 21:32 | XMS_ITS | Continuity of Care Document ---
Author Organization [facility] or [facility]., [facility] Address [address] [place] [address] Assessment No assessment recorded. Plan of Treatment Reminders Order Date Submit Date Provider Last Modified By Organization Details Last Modified Time Details Appointments FOLLOW UP 15 2024 01:30P Amelie Almeida PA-C Not available Not available Not available Lab HbA1c (hemoglob in A1c), blood [email or web address] [place] [address], [address] [place], [address], 12/08/2024 13:21:44 microalbu min/creat inine, mass ratio, urine 2024 025 [facility], [address] [place], [address], 12/08/2024 13:18:18 Referral None recorded. Procedures None recorded. Surgeries None recorded. Imaging None recorded. Medication Orders Ozempic 1 mg/dose (4 mg/3 mL) subcutane ous pen injector 2024 025 [facility], [address] [place] [address], [id number], 12/11/2024 17:10:16 bupropion HCl SR 150 mg tablet,12 hr sustained -release 2024 025 [facility], [address] [address] [place], [id number], 12/08/2024 13:40:17 Patient TargetsNo targets recorded. Patient Instructions Encounter Date Encounter Id Patient Instructions Last Modified By Organization Details Last Modified Time 12/08/2024 [id number] learning about type 2 diabetes [id number] Not available 12/08/2024 13:12:19 type 2 diabetes: care instructions Not available 12/08/2024 13:12:19 Reason for Referral None Reported. Results Created Date Observation Date Name Description Value Unit Range Abnormal Flag Note LastModifiedBy Organization Detail LastModifiedTime 12/09/1912/08/2024 HbA1c (hemo globi n A1c), blood HbA1c 6.4 % Not Available [address], [address], 12/08/2024 13:05:20 12/09/19 25 12/08/2024 micro album in/cr eatin ine, mass ratio , urine Microalbumin 30 mg/L Not Available [address], [address], 12/08/2024 13:05:26 12/09/19 25 12/08/2024 micro album in/cr eatin ine, mass ratio , urine Creatinine 200 mg/dL Not Available [address], [address], 12/08/2024 13:05:26 12/09/19 25 12/08/2024 micro album in/cr eatin ine, mass ratio , urine Ratio <30 mg/g Not Available [address], [address], 12/08/2024 13:05:26 Result Notes None recorded. Problems Name Problem SNOMED Code Status Onset Date Resolution Date Notes Provider Name and Address Organization Details Recorded Time Hyperlipide michael 22247546 Active 2024 SHARMILA Batres [address] [place] [address], [address], [place] [employer] 13:20:52 Depressive disorder 98853481 Active 2024 SHARMILA Batres [address] [place] [address], [address], [place] [employer] 13:20:40 Essential hypertensio n 28473975 Active 2024 SHARMILA Batres [address] [place] [address], [address], [place] [employer] 13:20:42 Vitamin D deficiency 85647394 Active 2024 SHARMILA Batres [address] [place] [address], [address], [place] [employer] 13:20:50 Congestive heart failure 36592070 Active 2024 SHARMILA Batres [address] [place] [address], [address], [employer] 13:20:35 Irritable bowel syndrome 27694346 Active 2024 SHARMILA Batres [address] [place] [address], [address] 8, [employer] 13:20:54 Coronary atheroscler osis 405491904 Active 2024 SHARMILA Batres [address] [place] [address], [address], [employer] 13:20:37 Gastroesoph ageal reflux disease 664419746 Active 2024 SHARMILA Batres [address] [place] [address], [address], [employer] 13:20:47 Aphthous ulcer of mouth 482797674 Completed 202408/04/2024 SHARMILA Batres [address] [place] [address], [address] 8, [employer] 13:20:58 Diabetes mellitus 76627753 Active 2024 SHARMILA Batres [address] [place] [address], [address] 8, [employer] 13:20:33 Nausea and vomiting 33178221 Active 2024 SHARMILA Batres [address] [place] [address], [address] 8, [employer] 10:11:57 Problem Notes None recorded. Procedures Surgical History Date Name Laterality Status Provider Name and Address Organization Details Recorded Time 08/05/19 Diabetic Foot Screen completed SHARMILA Batres [address] [place] [address], [address], [employer] 08/04/2024 13:37:40 05/18/19 Most Recent Mammogram completed [employer] 06/09/2024 13:43:37 Caesarean Section completed [employer] 06/09/2024 13:43:38 Hysterectomy completed [employer] 06/09/2024 13:43:38 Tubal Ligation completed [employer] 06/09/2024 13:43:38 Total Hysterectomy completed [employer] 06/09/2024 13:43:38 Imaging Results None recorded. Procedure Notes None recorded. Medical Equipment None Reported. Allergies Allergen ID Allergen Name Allergen Category Reaction Reaction Severity Criticality Documentation Date Start Date Code Code System Note Provider Name and Address Organization Details Recorded Time 19369 Product containin g penicilli n (product) medicatio n itching rash Not available Not available Not available 06/09/2024 94652 8001 SNOMED [employer] 13:43:37 89356 lisinopri l medicatio n cough Not available Not available 06/09/2024 86555 RxNorm Shalonda Rodriguez [employer] 13:43:58 92105 metformin medicatio n diarrhea Not available Not available 08/04/2024 6809 RxNorm [facility], [facility] [employer], [facility]. 13:13:30 Medications Name Sig Start Date Stop [...] Organization Details Last Updated DateTime 165.1 cm 31.3 kg/m2 62503.0 8 g 98 % 98 % 94 /min 98 [degF] 110/76 mm[Hg] [employer]. 13:14:01 Social History Question Answer Notes LastModified by Organization Details LastModified Time Tobacco Smoking Status Former Smoker Shalonda franco [employer]. 06/09/2024 13:43:38 Do You Have An Advance Directive? No [email or web address] Information not available 06/09/2024 Is Your Home Air Conditioned? Yes Information not available 06/09/2024 If You Are , What Was Your Level Of Alcohol Consumption Prior To ? None Information not available 06/09/2024 Do You Wear A Helmet When Biking? No Information not available 06/09/2024 Are You Blind Or Do You Have Difficulty Seeing? No [email or web address] Information not available 06/09/2024 What Is Your Level Of Caffeine Consumption? Occasional Information not available 06/09/2024 What Type Of Pharmacy Clinical Coordinator Do You Use? [employer] [email or web address] Information not available 06/09/2024 In The 14 Days Before Symptom Onset, Have You Had Close Contact With A Laboratory-confi rmed COVID-19 While That Case Was Ill? No [email or web address] Information not available 06/09/2024 In The 14 Days Before Symptom Onset, Have You Had Close Contact With A Person Who Is Under Investigation For COVID-19 While That Person Was Ill? No [email or web address] Information not available 06/09/2024 Have You Been To An Area Known To Be High Risk For COVID-19? No [email or web address] Information not available 06/09/2024 Are You Deaf Or Do You Have Serious Difficulty Hearing? No [email or web address] Information not available 06/09/2024 What Type Of Diet Are You Following? REGULAR [email or web address] Information not available 06/09/2024 What Is The Highest Grade Or Level Of School You Have Completed Or The Highest Degree You Have Received? PF36477-2 [email or web address] Information not available 06/09/2024 How Many Days Of Moderate To Strenuous Exercise, Like A Brisk Walk, Did You Do In The Last 7 Days? 3 [email or web address] Information not available 06/09/2024 Have There Been Any Changes To Your Family Or Social Situation? No [email or web address] Information not available 06/09/2024 When Did You Quit Smoking? 1-5yearssincelastci adriana 2021 Stop Date Information not available 08/04/2024 Are There Any Guns Present In Your Home? No [email or web address] Information not available 06/09/2024 Which Of Your Hands Is Dominant? Right Information not available 06/09/2024 What Is Your Home Situation? Mother [email or web address] Information not available 06/09/2024 Do You Have A Medical Power Of Intermediate School Teacher? No [email or web address] Information not available 06/09/2024 What Was The Date Of Your Most Recent Tobacco Screening? 12/08/2024 Information not available 12/08/2024 What Is Your Current Pack Years? 10packyears [email or web address] Information not available 06/09/2024 Do You Have Any Pets? No [email or web address] Information not available 06/09/2024 What Is Your Relationship Status? Information not available 06/09/2024 Have You Repeated Any Grades? No Information not available 06/09/2024 Do You Use Your Seat Belt Or Car Seat Routinely? Yes [email or web address] Information not available 06/09/2024 Are You Sexually Active? No [email or web address] Information not available 06/09/2024 Do You Have Any Siblings? Yes Information not available 06/09/2024 Do You Have Smoke And Carbon Monoxide Detectors In Your Home? Yes Information not available 06/09/2024 At What Age Did You Start Smoking Tobacco? 14 [email or web address] Information not available 06/09/2024 Are You Passively Exposed To Smoke? Yes [email or web address] Information not available 06/09/2024 Are There Any Smokers In Your House? Yes [email or web address] Information not available 06/09/2024 Do You Use Sunscreen Routinely? Yes [email or web address] Information not available 06/09/2024 Has Tobacco Cessation Counseling Been Provided? No Information not available 08/04/2024 How Many Years Have You Smoked Tobacco? 25 [email or web address] Information not available 06/09/2024 Have You Recently Traveled Abroad? No [email or web address] Information not available 06/09/2024 Do You Have Difficulty Walking Or Climbing Stairs? No [email or web address] Information not available 06/09/2024 Are You Currently [...] use any illicit or recreational drugs? No Information not available 06/09/2024 Do you or have you ever used any other forms of tobacco or nicotine? No Information not available 08/04/2024 What is your level of alcohol consumption? None [email or web address] Information not available 06/09/2024 Are you currently employed? No [email or web address] Information not available 06/09/2024 Do you have transportation difficulties? No [email or web address] Information not available 06/09/2024 Are you able to walk independently without assistance or assistive devices? YESWOREST Information not available 06/09/2024 Do you have difficulty doing errands alone? No Information not available 06/09/2024 Are you able to care for yourself independently? Yes [email or web address] Information not available 06/09/2024 Do you have difficulty dressing, bathing, grooming, or toileting? No [email or web address] Information not available 06/09/2024 What is your exercise level? Occasional [email or web address] Information not available 06/09/2024 Mental Status Question Answer Note LastModified by Organizat ion Details LastModified Time Do you feel stressed (tense, restless, nervous, or anxious, or unable to sleep at night)? [id number] Information not available 08/04/2024 Do you have difficulty concentrating, remembering or making decisions? Yes Information no t available 06/09/2024 Are you or have you been involved with bullying? No [email or web address] Information not available 06/09/2024 Family History Relationship Description Onset Age of this Age Resolved Age Notes LastModified by Organization Details LastModified Time Mother Anxiety disorder Not available 2024 13:43:37 Mother Arthritis [email or web address] Not availab le 06/09/2024 13:43:37 Mother Hypertensive disorder [email or web address] Not available 2024 13:43:37 Maternal Grandmother Malignant neoplasm of breast Not available 2024 13:43:37 Maternal Grandmother Alzheimer's disease [email or web address] Not available 2024 13:43:37 Maternal Grandmother Arthritis [email or web address] Not available 13:43:37 Maternal Grandmother Hypertensive disorder [email or web address] Not available 2024 13:43:37 Sister Anxiety disorder [email or web address] Not available 2024 13:43:37 Maternal Grandfather Hypertensive disorder Not available 2024 13:43:37 Father Hypertensive disorder [email or web address] Not available 2024 13:43:37 Medical History Condition Response ADD/ADHD Y Anxiety Disorder Y Gout Y Hospitalizations N Acid Reflux [...] Details Recorded Time Influenza, split virus, trivalent, PF 5 completed Alie Vice null, [employer] 12/08/2024 14:43:22 Pneumococcal conjugate PCV21, polysaccharide [id number] conjugate, PF 5 completed Alie Vice null, [employer] 12/08/2024 14:43:23 Td(adult) unspecified formulation 8 completed Not Available [facility] 12/08/2024 12:51:35 Influenza, split virus, quadrivalent, PF 4 completed Not Available [facility] 12/08/2024 12:51:35 Past Encounters Encounter ID Performer Location Encounter Start Date Encounter Closed Date Diagnosis/Indication Diagnosis SNOMED-CT Code Diagnosis ICD10 Code Diagnosis IMO Codes Diagnosis Note [id number] SHARMILA Batres [facility] [address] [place] [address] 12/08/2024 12:50:21 12/08/2024 13:44:33 Type 2 diabetes mellitus 92897131 E11.9 95233111 Depressive disorder 3548 9007 F32.A Requires i nfluenza virus vaccination 870589446 Z23 3217802 Requires v accination against Streptococcus pneumoniae 3704581489 Z23 546902 History of well-differentiated neuroendocrine tumor of rectum 3293642856 Z85.614 7029908 Followed by [facility] Concerns Section Related Observation LastModified by Organization Detai ls LastModified Time None Recorded Concern Status LastModified by Organization Details LastModified Time None Recorded Payers Encounter Date Sequence Insurance Name Policy Number Policy Langston Covered Member ID Langston Member ID Guarantor Name 12/08/2024 1 [facility] PLAN (MEDICAID REPLACEMENT - HMO) [id number] Viktoriya Hoang [id number] Viktoriya Hoang Notes Date Note Type Note Provider Name and Address Organization Details Recorded Time 12/08/2024 text/html ROS as noted in the [...] scar tissue.Tolerating Ozempic well. SHARMILA Batres [address] [place], [address], [place] [employer] [employer] [employer] [employer] 12/08/2024 16:17:08 OBGyn Episode No OBEpisode recorded.
--- OUTSIDE RECORDS SUMMARY | 2024-12-29 21:32 | XMS_ITS | Encounter Summary ---
Author Organization Healthcare Address [address] [place] [address] Care Team Providers Care Olive Packer Name Role Phone Anton Sibley MD Primary Care Provider [phone] Ramirez Greer MD Unavailable [phone] Eladio Kaur MD Unavailable [phone] Wesley Araujo MD Unavailable [phone] Skinny Vidales DO Primary Care Provider [phone] Nikki Almeida Primary Care Provider [phone] Reason for Visit * Reason Comments Med Refill Encounter Details Date Type Department Care Team (Late st Contact Info) Description 04/16/2022 Refill [facility] [address] [place] [address] Shaneka Hale PA [address] [place] [address] Lower abdominal pain Social History Tobacco Use Types Packs/Day Years Used Date Smoking Tobacco: Every Day Cigarettes 0.5 35.8 Started: 1989 Smokeless Tobacco: Never Comments:I dont smoke anywhe re near what i use to Alcohol Use Standard Drinks/Week Comments Not Currently 0 (1 standard drink = 0.6 oz pur e alcohol) Occasional PHQ-2 Answer Date Recorded Patient Health Questionnaire-2 Score 0 04/05/2022 Comments No Sex and Gender Information Value Date Recorded Sex Assigned at Not on file Legal Sex Female 7:43 PM EDT Gender Identity Not on file Sexual Orientation Not on file 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 No / Unsure 03/29/2022 6:00 PM EST documented as of this encounter Miscellaneous Notes * Telephone Encounter - [place] Fernando - 04/16/2022 11:54 AM EST Per protocol, 1 medication(s), dicyclomine, has been approved for 30 day supply with 1 refill(s) [facility]. documented in this encounter Plan of Treatment Upcoming Encounters Date Type Department Care Team (Late st Contact Info) Description 03/15/2025 10:00 AM EST Appointment [facility] [address] [place] [phone] 03/19/2025 1:40 PM EST Office [facility] [address] [place] [address] Shaneka Hale PA [address] [facility] [address] [place] [address] 06/21/2025 2:00 PM EDT Appointment [facility] Radiation [address] [place] [address] Eladio Kaur MD [address] [place] [address] documented as of this encounter Visit Diagnoses Diagnosis Lower abdominal pain Abdominal pain, other specified site documented in this encounter Additional Health Concerns Assessment Noted Time A fall risk assessment has been complete d for the patient 04/05/2022 9:18 AM EST A Body Mass Index follow-up plan has been documented for the patient 04/05/2022 10:26 AM EST documented as of this encounter Care Teams Olive Packer Relationship Specialty Start Date End Date Anton Sibley MD [address] [place] [address] PCP - General 07/29/20 03/26/23 Skinny Vidales DO [address] [place] [address] PCP - General 03/27/23 08/29/24 Nikki Almeida PA [address] [place] [address] PCP - General 08/30/24 Ramirez Greer MD [address] [facility] [address] [place] [address] Surgeon Colon and Rectal Surgery 01/31/21 Eladio Kaur MD [address] [facility] [address] [place] [address] Radiation Oncologist Radiation Oncology 02/15/21 Wesley Araujo MD [address] [place] [address] Fellow Hematology and Oncology 03/02/22 documented as of this encounter
--- OUTSIDE RECORDS SUMMARY | 2024-12-29 21:32 | XMS_ITS | Encounter Summary ---
Author Organization Healthcare Address [address] [place] [address] Care Team Providers Care Fire Regulator Name Role Phone Ramirez Greer MD Unavailable [phone] Eladio Kaur MD Unavailable [phone] Wesley Araujo MD Unavailable [phone] Nikki Almeida Primary Care Provider [phone] Encounter Details Date Type Department Care Team (Latest Contact Info) Description 10/30/2024 Travel Social History Tobacco Use Types Packs/Day [...] Date Recorded Patient Health Questionnaire-2 Score 0 10/20/2024 PHQ-9 Answer Date Recorded Patient Health Questionnaire-9 Score 4 10/08/2024 PHQ-2A Answer Date Recorded Depression Risk 0 10/01/2024 Comments No Sex and Gender Information Value Date Recorded Sex Assigned at Not on file Legal Sex Female 7:43 PM EDT Gender Identity Not on file Sexual Orientation Not on file 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 [place] [address] Eladio Kaur MD [address] [place] [address] documented as of this encounter Visit Diagnoses Not on filedocumented in this encounter Additional Health Concerns Assessment Noted Time PHQ-9 Depression Total Score: 4 10/09/19 10:09 AM EDT A fall risk assessment has been complete d for the patient 10/20/2024 11:45 AM EDT A Body Mass Index follow-up plan has been documented for the patient 10/08/2024 11:26 AM EDT documented as of this encounter Care Teams Fire Regulator Relationship Specialty Start Date End Date Nikki Almeida PA [address] [place] [address] PCP - General 08/30/24 Ramirez Greer MD [address] [place] [address] Surgeon Colon and Rectal Surgery 01/31/21 Eladio Kaur MD [address] [place] [address] Radiation Oncologist Radiation Oncology 02/15/21 Wesley Araujo MD [address] [place] [address] Fellow Hematology and Oncology 03/02/22 documented as of this encounter
--- OUTSIDE RECORDS SUMMARY | 2024-12-29 21:32 | XMS_ITS | Encounter Summary ---
Author Organization Healthcare Address [address] [place] [address] Care Team Providers Care Spa Host Name Role Phone Ramirez Greer MD Unavailable [phone] Eladio Kaur MD Unavailable [phone] Wesley Araujo MD Unavailable [phone] Skinny Vidales DO Primary Care Provider [phone] Nikki Almeida Primary Care Provider [phone] Reason for Visit * Reason Comments Med Refill Encounter Details Date Type Department Care Team (Late st Contact Info) Description 06/08/2024 Refill [facility] [address] [place] [address] Shaneka Hale PA [address] [place] [address] Gastroesophageal reflux disease with esophagitis without hemorrhage Social History Tobacco Use Types Packs/Day Years [...] Date Recorded Patient Health Questionnaire-2 Score 0 10/25/2023 PHQ-2A Answer Date Recorded Patient Health Questionnaire-2 Score 0 11/23/2022 Comments No Sex and Gender Information Value Date Recorded Sex Assigned at Not on file Legal Sex Female 7:43 PM EDT Gender Identity Not on file Sexual Orientation Not on file 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 Sending to clinic for review. Additional info: Appointment compliance - Patient has not followed up in clinic as requested. Please review for scheduling and if refills are appropriate. documented in this encounter Plan of Treatment Upcoming Encounters Date Type Department Care Team (Late st Contact Info) Description 03/15/2025 10:00 AM EST Appointment [facility] [address] [place] [address] 03/19/2025 1:40 PM EST Office Visit [place] [facility] [address] [place] [address] Shaneka Hale PA [address] [place] [address] 06/21/2025 2:00 PM EDT Appointment [facility] [address] [place] [address] Eladio Kaur MD [address] [place] [address] documented as of this encounter Visit Diagnoses Diagnosis Gastroesophageal reflux disease with esophagitis without hemorrhage documented in this encounter Additional Health Concerns Assessment Noted Time A fall risk assessment has been complete d for the patient 10/25/2023 12:48 PM EDT A Body Mass Index follow-up plan has been documented for the patient 12/06/2023 1:24 PM EDT documented as of this encounter Care Teams Spa Host Relationship Specialty Start Date End Date Skinny Vidales DO [address] [place] [address] PCP - General 03/27/23 08/29/24 Nikki Almeida PA [address] [place] [address] PCP - General 08/30/24 Ramirez Greer MD [address] [facility] [address] [place] [address] Surgeon Colon and Rectal Surgery 01/31/21 Eladio Kaur MD [address] [facility] [address] [place] [address] Radiation Oncologist Radiation Oncology 02/15/21 Wesley Araujo MD [address] [place] [address] Fellow Hematology and Oncology 03/02/22 documented as of this encounter
--- OUTSIDE RECORDS SUMMARY | 2024-12-29 21:32 | XMS_ITS | Encounter Summary ---
Author Organization [facility] Address [address] 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 [place] [address] Eladio Kaur MD [address] [facility] [address] [place] [address] documented as of this encounter [...] documented as of this encounter Care Teams Quality Control Inspector Heading Relationship Specialty Start Date End Date Nikki Almeida PA [address] [place] [address] PCP - General 08/30/24 Ramirez Greer MD [address] [place] [address] Surgeon Colon and Rectal Surgery 01/31/21 Eladio Kaur MD [address] [place] [address] Radiation Oncologist Radiation Oncology 02/15/21 Wesley Araujo MD [address] [phone] Fellow Hematology and Oncology 03/02/22 documented as of this encounter
--- OUTSIDE RECORDS SUMMARY | 2024-12-29 21:32 | XMS_ITS | Encounter Summary ---
Author Organization Healthcare Address [address] 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 [place] [phone] Eladio Kaur MD [address] [place] [address] documented as of this encounter [...] documented as of this encounter Care Teams Redevelopment Specialist Relationship Specialty Start Date End Date Nikki Almeida PA [address] [place] [address] PCP - General 08/30/24 Ramirez Greer MD [address] [place] [address] Surgeon Colon and Rectal Surgery 01/31/21 Eladio Kaur MD [address] [place] [phone] Radiation Oncologist Radiation Oncology 02/15/21 Wesley Araujo MD [address] [place] [phone] Fellow Hematology and Oncology 03/02/22 documented as of this encounter
--- OUTSIDE RECORDS SUMMARY | 2024-12-29 21:32 | XMS_ITS | Encounter Summary ---
Author Organization Healthcare Address [address] [place] [address] Care Team Providers Care Handbag Finisher Name Role Phone Ramirez Greer MD Unavailable [phone] Eladio Kaur MD Unavailable [phone] Wesley Araujo MD Unavailable [phone] Nikki Almeida Primary Care Provider [phone] Encounter Details Date Type Department Care Team (Late st Contact Info) Description 10/19/2024 Telephone [facility] [address] [place] [address] Ramirez Greer MD [address] 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 Best contact number and optimal time of day to reach caller: [phone] Note: Please do not reply to this message. Follow-up communication and further actions as a result of this message need to be communicated with the patient directly, if the patient is not active onMyChart. If the patient is active on MyChart, they will receive notification of the communication/outcome via PulsePointhart. documented in this encounter Plan of Treatment Upcoming Encounters Date Type Department Care Team (Late st Contact Info) Description 03/15/2025 10:00 AM EST Appointment [facility] G Radiology [address] [place] [address] 03/19/2025 1:40 PM EST Office Visit [place] [facility] [address] [place] [address] Shaneka Hale PA [address] [place] [address] 06/21/2025 2:00 PM EDT Appointment [facility] CC Radiation [id number] [place] [phone] Eladio Kaur MD [address] [facility] [address] [place] [address] documented as of this encounter [...] documented as of this encounter Care Teams Handbag Finisher Relationship Specialty Start Date End Date Nikki Almeida PA [address] [place] [address] PCP - General 08/30/24 Ramirez Greer MD [address] [place] [address] Surgeon Colon and Rectal Surgery 01/31/21 Eladio Kaur MD [address] [facility] [address] [place] [address] Radiation Oncologist Radiation Oncology 02/15/21 Wesley Araujo MD [address] [place] [address] Fellow Hematology and Oncology 03/02/22 documented as of this encounter
--- NOTE | 2024-12-29 22:22 | XR_ITS ---
PROCEDURE INFORMATION: Exam: XR Right Humerus Exam date and time: 12/29/2024 10:16 PM Age: 54 years old Clinical indication: Pain; Upper arm; Right TECHNIQUE: Imaging protocol: Radiologic exam of the right humerus. Views: 2 or more views. COMPARISON: CR XR HUMERUS RT 12/29/2024 10:16 PM FINDINGS: Bones/joints: No acute fracture. [id number] degenerative changes of glenohumeral joint. Early degenerative changes of acromioclavicular joint. No dislocation. Soft tissues: Unremarkable. IMPRESSION: No fracture.
--- NOTE | 2024-12-29 22:56 | XR_ITS ---
PROCEDURE INFORMATION: Exam: XR Chest Exam date and time: 12/29/2024 11:13 PM Age: 54 years old Clinical indication: Other: Right arm pain; Additional info: Right shoulder pain TECHNIQUE: Imaging protocol: Radiologic exam of the chest. Views: 1 view. COMPARISON: CR XR CHEST PORTABLE 12/01/2023 9:44 AM FINDINGS: Limitations: Radiographic technique - mild. Lungs: Mild underinflation. No definite consolidation. Pleural spaces: No significant pleural effusion. No pneumothorax. Heart/Mediastinum: Mild cardiomegaly. Atherosclerosis of thoracic aorta. Bones/joints: No displaced fracture. Soft tissues: Unremarkable. IMPRESSION: Mild cardiomegaly.
--- NOTE | 2024-12-29 22:57 | ECG_ITS ---
APPROVED REPORT Exam: Resting ECG HR:84 bpm ECG Measurements Heart Rate 84 AXES NE 173 P 33 QRSd 90 QRS 0 QT 381 T 62 QTc 423 Conclusion SINUS RHYTHM POSSIBLE INFERIOR MYOCARDIAL INFARCTION , PROBABLY OLD [30 ms Q WAVE IN II/aVF] No STEMI Electronically signed by : PEPE GARSIA, 12/30/2024 07:10:32
[2024-12-29 23:18] LABS: Hematocrit 34.5 % (37.0-47.0); Hemoglobin 11.5 g/dL (12.2-16.2); Immature Granulocytes % 0.8 %; Mean Corpuscular HGB Conc 33.3 g/dL (31.8-35.4); Mean Corpuscular Hemoglobin 30.3 pg (27.0-31.2); Mean Corpuscular Volume 91.0 fl (81-99); Nucleated Red Blood Cells % 0 %; Platelet Count 263 K/mm3 (142-424); Red Blood Count 3.79 M/mm3 (4.20-5.40); Red Cell Distribution Width-SD 46.9 fL; White Blood Count 6.5 K/mm3 (4.8-10.8)
[2024-12-29 23:43] LABS: Alanine Aminotransferase 27 U/L (12-78); Albumin Level 4.1 g/dl (3.5-5.0); Albumin/Globulin Ratio 1.2 (1.1-1.8); Alkaline Phosphatase 127 U/L (38-126); Anion Gap 15.2 mEq/L (5-15); Aspartate Amino Transferase 34 U/L (14-36); Bilirubin,Total 0.5 mg/dl (0.2-1.3); Blood Urea Nitrogen 18 mg/dl (7-17); Calcium 9.3 mg/dl (8.4-10.2); Carbon Dioxide 27 mmol/L (22.0-30.0); Chloride 100 mmol/L (98-107); Creatinine Clearance Estimated 74 mL/min (50-200); Creatinine,Serum 1.10 mg/dl (0.52-1.04); Estimated Glomerular Filt Rate 52 ml/min (>60); GFR (African American) 62 ML/MIN (>60); Globulin 3.4 g/dL (1.3-3.2); Glucose 108 mg/dl (74-100); Potassium 4.2 mmoL/L (3.5-5.1); Sodium 138 mmol/L (136-145); Total Protein,Serum 7.5 g/dl (6.3-8.2)
[2024-12-29 23:56] LABS: Troponin I < 0.01 ng/ml (0.00-0.034)
--- NOTE | 2024-12-30 00:57 | ED_ITS ---
Discharge Plan Disposition Patient Disposition: Home, Self-Care Condition: Good Prescriptions Prescriptions: New methocarbamol 750 mg tablet 1,500 mg PO Q8H Qty: 42 0RF No Action pantoprazole 40 mg tablet,delayed release (DR/EC) 40 mg PO HS spironolactone 25 mg tablet 25 mg PO DAILY Patient Comments: TAKE ONE TABLET BY MOUTH EVERY DAY hydrochlorothiazide 25 mg tablet 25 mg PO DAILY Patient Comments: TAKE 1 TABLET BY MOUTH ONCE A DAY FOR BLOOD PRESSURE aspirin 81 mg tablet,delayed release (DR/EC) 81 mg PO DAILY 30 Days Qty: 30 0RF atorvastatin 80 mg tablet See Rx Instructions .ROUTE .COMPLEX Qty: 90 0RF Dose Instruction: TAKE ONE TABLET BY MOUTH AT BEDTIME Rx Instructions: TAKE ONE TABLET BY MOUTH AT BEDTIME clopidogrel 75 mg tablet See Rx Instructions .ROUTE .COMPLEX Qty: 90 0RF Dose Instruction: TAKE ONE TABLET BY MOUTH ONCE A DAY Rx Instructions: TAKE ONE TABLET BY MOUTH ONCE A DAY carvedilol 25 mg tablet See Rx Instructions .ROUTE .COMPLEX Qty: 60 2RF Dose Instruction: TAKE ONE TABLET BY MOUTH 2 TIMES A DAY WITH MEALS Rx Instructions: TAKE ONE TABLET BY MOUTH 2 TIMES A DAY WITH MEALS cholecalciferol (vitamin D3) 125 mcg (5,000 unit) capsule 125 mcg PO DAILY 90 Days Qty: 90 3RF dicyclomine 10 mg capsule See Rx Instructions .ROUTE .COMPLEX Qty: 90 0RF Dose Instruction: TAKE ONE CAPSULE BY MOUTH 3 TIMES A DAY NEEDED FOR ABDOMINAL PAIN Rx Instructions: TAKE ONE CAPSULE BY MOUTH 3 TIMES A DAY NEEDED FOR ABDOMINAL PAIN bupropion HCl 150 mg tablet sustained-release 12 hr 150 mg PO BID 30 Days Qty: 60 2RF valsartan 160 mg tablet See Rx Instructions .ROUTE .COMPLEX Qty: 60 0RF Dose Instruction: TAKE ONE TABLET BY MOUTH 2 TIMES A DAY Rx Instructions: TAKE ONE TABLET BY MOUTH 2 TIMES A DAY Referrals Follow up/Referrals: Nikki Almeida PA [Primary Care Provider, Medical] - See instructions Activity Restrictions/Add. Instructions Additional Instructions/Restrictions: You may take 1500 mg of Robaxin up to 3 times daily for pain. If this medication makes you dizzy please cut this medication in half. You can also take ibuprofen in addition to this medication to assist in pain control. If your pain persist over period of several weeks please see your primary care provider and consider even following up in the orthopedic surgery clinic with Dr. Nassar for further evaluation. If you develop pain in your chest or shortness of breath please return to the emergency department promptly. Clinical Impressions Clinical Impression: Acute pain of right shoulder Print Language Print Language: Luxembourgish Discharge ED Provider: Brennen Meier Adult HPI General Chief complaint: PAIN Stated complaint: right arm pain Time Seen by Provider: 12/29/24 22:41 Mode of Arrival: Ambulatory Source of Information: Patient Description of Symptoms (Recalled from ER Triage Doc. by RN): Right arm pain noticed two days ago. Pain woke pt up from sleep last night. No injury or trauma, full range of motion History of Present Illness HPI narrative: This is a 54-year-old female patient, with past medical history of of coronary artery disease status post myocardial infarction, hypertension, hyperlipidemia, tobacco abuse, who is presented to the emergency department today for evaluation of right shoulder pain. Patient states that yesterday she was performing repetitive overhead movements and describes hanging stuff on a wall multiple times. 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 She states that since that time she has had pain in the right shoulder that is worse with movement of the right arm. This pain is nonradiating and she has no pain in her chest. No shortness of breath. No lower extremity erythema or edema. The patient tells me that she had a myocardial infarction in the past and when she did she was having atypical pain in the right chest wall and while the pain that she is experiencing in her right shoulder today does not feel similar to her prior heart attack, she is concerned that this could be an atypical presentation of a heart attack. Related Data Home Medications ?Medication ?Instructions ?Recorded ?Confirmed pantoprazole 40 mg tablet,delayed 40 mg PO HS acid ref lux 02/02/22 12/29/24 release hydrochlorothiazide 25 mg tablet 25 mg PO DAILY 12/29/24 spironolactone 25 mg tablet 25 mg PO DAILY 07/14/24 Previous Rx's ?Medication ?Instructions ?Recorded aspirin 81 mg tablet,delayed 81 mg PO DAILY 30 days #3 0 tabs 04/16/22 release atorvastatin 80 mg tablet See Rx Instructions .Route 0 10/31/23 .COMPLEX #90 tabs carvedilol 25 mg tablet See Rx Instructions .Route 1 05/13/23 .COMPLEX #60 tabs clopidogrel 75 mg tablet See Rx Instructions .Route 1 05/13/23 .COMPLEX #90 tabs cholecalciferol (vitamin D3) 125 125 mcg PO DAILY 90 d ays #90 caps 04/13/24 mcg (5,000 unit) capsule dicyclomine 10 mg capsule See Rx Instructions .Route 0 04/20/24 .COMPLEX #90 caps bupropion HCl 150 mg tablet,12 hr 150 mg PO BID 30 day s #60 tabs 05/04/24 sustained-release valsartan 160 mg tablet See Rx Instructions .Route 0 05/07/24 .COMPLEX #60 tabs methocarbamol 750 mg tablet 1,500 mg (2 x 750 mg) PO Q 8H #42 12/30/24 tabs Allergies Allergy/AdvReac Type Severity Reaction Status Date / Time Penicillins (PENICILLINS) Allergy Intermediate I-HIVES Verified 07/14/24 14:00 lisinopril AdvReac Intermediate Cough Verified 07/14/24 14:00 [facility] Disclaimer: The information contained in this section may have been updated after the patient was seen, as this information can be updated by other users. Medical History Angina pectoris Fatigue Angina pectoris Uses wearable garment containing external defibrillator with attached monitor Coronary artery disease LV dysfunction Acute systolic (congestive) heart failure Ischemic cardiomyopathy Tobacco user Hyperlipidemia Primary hypertension CAD (coronary artery disease) of artery bypass graft STEMI (ST elevation myocardial infarction) Social History Smoking Status: Former smoker tobacco type: cigarettes packs per day: 1 alcohol intake: never substance use type: former substance user current occupational status: employed Travel in the last 8 weeks?: Inside the [place] household members: friend(s) housing: apartment caffeine: Yes Have you lived/traveled outside [place] in past 30 days?: No Contact w/someone who lives/traveled outside US past 30 days?: No Exposure to someone with infectious disease in past 14 days?: No Do you have a fever (greater than 100.4 F or 38 C)?: No Have you tested positive for COVID-19?: No Exposed to someone with COVID-19 in past 14 days?: No Do you have a sore throat?: No Do you have a cough?: No Do you have any weakness?: No Do you have any diarrhea?: No Are you experiencing any unusual bleeding?: No Do you have any muscle aches/pain?: No Do you have any abdominal pain?: No Are you experiencing loss of taste or smell?: No Other Medical History Have you received the Flu Vaccine for this season: No Have you received the Pneumonia Vaccine: Yes ROS Obtained: Yes Systems reviewed as appropriate & no additional complaints except as documented Physical Exam General General appearance: other (See MDM) Respiratory Respiratory exam: Present other (See MDM) Cardiovascular Cardiovascular exam: Present other (See MDM) Neurological Exam Neurological exam: Present other (See MDM) Medical Decision Making Medical Records Medical records reviewed: Yes I reviewed the patient's medical records. Screening: Per USPSTF and CDC recommendations, given the prevalence of disease in our region, it is our hospital?s policy to screen for HIV and viral Hepatitis for all patients aged 18 and over and those with ongoing risk factors. Qamar Inquiry Pt receiving controlled substance: No Qamar was queried for this patient: No Vital Signs: 12/29/24 21:23 Temperature 98.2 F Temperature Source Temporal Artery Scan Pulse Rate [Right] 112 H Respiratory Rate 18 Blood Pressure [Right Arm] 160/102 H Blood Pressure Mean [Right Arm] 121 Blood Pressure Source [Right Arm] Automatic Cuff Blood Pressure Position [Right Arm] Sitting 02 Sat by Pulse Oximetry 97 Lab Data Lab Results 12/29/24 23:11: WBC 6.5, RBC 3.79 L, Hgb 11.5 L, Hct 34.5 L, MCV 91.0, MCH 30.3, MCHC 33.3, RDW 14.1, Plt Count 263, MPV 9.1, Neut % (Auto) 67.1, Lymph % (Auto) 17.5, [place] % (Auto) 10.4 H, Eos % (Auto) 3.4, Baso % (Auto) 0.8, Neut # (Auto) 4.4, Lymph # (Auto) 1.1, [place] # (Auto) 0.7, Eos # (Auto) 0.2, Baso # (Auto) 0.1, Sodium 138, Potassium 4.2, Chloride 100, Carbon Dioxide 27, Anion Gap 15.2 H, B UN 18 H, Creatinine 1.10 H, Estimated Creat Clear 74, Estimated GFR 52 L, Est GFR ( Amer) 62, Glucose 108 H, Calcium 9.3, Total Bilirubin 0.5, AST 34, ALT 27, Alkaline Phosphatase 127 H, Troponin I < 0.01, Total Protein 7.5, Albumin 4.1, Globulin 3.4 H, Albumin/Globulin Ratio 1.2 12/29/24 23:11 12/29/24 23:11 Orders (Tests/Meds): ED MEDICATIONS Discontinued Medications Generic Name Dose Route Start Last Admin Trade Name Freq PRN Reason Stop Dose Admin Methocarbamol 1,500 mg 12/30/24 01:05 Methocarbamol 500mg Tablet PO 12/30/24 01:06 ONCE ONE ORDERS Category Date Time Status XR chest portable Stat Exams 12/29/24 22:56 Completed XR humerus RT Stat Exams 12/29/24 22:22 Completed XR shoulder RT min 2V Stat Exams 12/29/24 21:30 Completed CBC w/Auto Diff [Complete Blood Count Auto Diff] Stat Lab 12/29/24 23:11 Completed CMP [Comprehensive Metabolic Panel] Stat Lab 12/29/24 23:11 Completed Troponin I Q3H Lab 12/30/24 02:00 Ordered Troponin I Q3H Lab 12/30/24 05:00 Ordered Troponin I Stat Lab 12/29/24 23:11 Completed ECG Data Tracing #1: I reviewed this ECG and interpreted as documented below: EKG personally interpreted by me demonstrates normal sinus rhythm at a rate of 84 bpm, normal axis, no AR prolongation, narrow QRS, no QTc prolongation. No ST elevation or depression. No overt signs of ischemia or arrhythmia Medical Decision Narrative: In summary, this a 54-year-old female patient who is presented to the emergency department today for evaluation of right shoulder pain after repetitive movements overhead yesterday. Her comorbidities include a past medical history of coronary artery disease, myocardial infarction, hypertension, hyperlipidemia, and tobacco abuse. On initial evaluation of the patient they were resting comfortably in no acute distress and nontoxic in appearance. They are hemodynamically stable, saturating well room air, and are neurologically intact. On physical examination she is appropriately alert and interactive with a GCS of 15. She has no abnormalities on auscultation of her heart or lungs bilaterally. No lower extremity erythema or edema. Abdomen is soft nontender to palpation. On physical examination the patient has pain in the right anterior aspect of the shoulder with Land maneuver as well as empty can test. She also has pain with extreme abduction. I have had a shared decision-making discussion with the patient about where to go from here. My suspicion is that she is very likely experiencing musculoskeletal pain given the repetitive movements described yesterday combined with the fact that she has pain that is worse with range of motion and is worse with the physical exam maneuvers described above. However, I can also appreciate that the patient has had atypical presentations of chest pain in the past so have offered to perform hematologic labs and obtain an EKG and chest x- ray. Patient would like to do conservative approach so we will rule out these other possibilities. Differential diagnosis includes rotator cuff impingement, rotator cuff tear, labral tear, muscle strain, fracture, among others. Less likely differential diagnose includes acute coronary syndrome/myocardial infarction. An EKG was obtained and appeared nonischemic. Please see full interpretation above. Labs were personally interpreted by me and demonstrate no leukocytosis or transfuse level anemia. No significant electrolyte derangements or evidence of acute kidney injury. Troponin is less than 0.01. Chest x-ray was personally interpreted by me and demonstrates no lobar consolidation. Official radiology read is in agreement and states that she has mild cardiomegaly. Additionally I personally interpreted the x-ray of the right humerus and right shoulder and I do not appreciate any bony fracture or malalignment. Official radiology read is in agreement and states there is no acute other malady. The patient is reassured that her x-rays are negative and she has a troponin that is undetectably low. This furthers my suspicion that this is musculoskeletal in origin. We will have the patient take NSAIDs at home as well as a short course of Robaxin. I discussed with the patient that Robaxin can make her dizzy and if it does make her dizzy she should cut her dose in half. I have also advised the patient to follow-up with her primary care physician and if her pain continues over the next few weeks that she may seek care with Dr. Nassar in the orthopedic clinic for further workup of the shoulder pain. At this time all questions have been answered and all parties are agreeable with the decision to discharge home Critical Care Critical Care Time Critical Care Time: No
[2024-12-30] MEDS: METHOCARBAMOL 500MG TABLET 1500 MG PO (01:26)
[2024-12-30 01:30] VITALS: BP 122/87; PULSE 86; RESP 16; TEMP 36.9; O2SAT 92
== END 2024-12-30 01:31 | disposition home or self-care (01) ==
PROVIDERS: Emergency Provider Student in an Organized Health Care Education/Training Program; PCP Physician Assistant
DX: M25.511 Pain in right shoulder (principal); I10 Essential (primary) hypertension; E78.5 Hyperlipidemia, unspecified; Z86.79 Personal history of other diseases of the circulatory system; Z87.891 Personal history of nicotine dependence
CPT/HCPCS: 71045; 73030; 73060; 80053; 84484; 85025; 93005; 99283; 99284